=== PATIENT | male | born 1950 | race Caucasian/White ===

== ENCOUNTER 2016-07-05 07:37 | Emergency (ER) | payer OTHER, MEDICARE ==
[~2016-07-05 07:37] MED LIST: AMOX875T2 PO; ATEN50TA2 PO; DOXA1TAB71 PO; FLUT11IN INH; HYDR12CA PO; INSUDET SC; INSUHUMDS SC; LISI-538 PO; LISI-542 PO; LISI40TAB PO
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
== END 2016-07-05 08:31 | disposition home or self-care (01) ==
LOC: M ED 07:37
DX: S80.01XA Contusion of right knee, initial encounter (principal); S00.01XA Abrasion of scalp, initial encounter; V03.10XA Pedestrian on foot injured in collision with car, pick-up truck or van in traffic accident, initial encounter; Y92.410 Unspecified street and highway as the place of occurrence of the external cause; I10 Essential (primary) hypertension; E11.9 Type 2 diabetes mellitus without complications; Z79.899 Other long term (current) drug therapy; Z79.4 Long term (current) use of insulin

== ENCOUNTER 2016-07-05 13:14 | Emergency (ER) | payer MEDICARE ==
[2016-07-05 14:53] LABS: BASO % 0.1 % (0.0-1.0); EOS % 0.2 % (0.0-3.0); LARGE UNSTAINED CELL # 0.1 K/mm3 (0.0-0.4); LARGE UNSTAINED CELL % 0.5 % (0.0-4.0); LYMPH # 0.4 K/mm3 (1.5-4.5); LYMPH % 3.3 % (24.0-44.0); MEAN CORPUSCULAR HEMOGLOBIN 27.8 pg (27.0-33.0); MEAN CORPUSCULAR HGB CONC 34.6 g/dl (32.0-36.5); MEAN CORPUSCULAR VOLUME 80.4 fl (80.0-96.0); MONO # 0.5 K/mm3 (0.0-0.8); MONO % 4.3 % (0.0-5.0); NEUTROPHILS % 91.7 % (36.0-66.0); PLATELET COUNT, AUTOMATED 204 k/mm3 (150-450); RED CELL DISTRIBUTION WIDTH 13.3 % (11.5-14.5); WHITE BLOOD COUNT 10.9 K/mm3 (4.0-10.0)
[2016-07-05] MEDS ORDERED: ONDANSETRON 4MG/2ML VIAL (J2405) As Ordered ONE (15:07)
[2016-07-05] MEDS ORDERED: MORPHINE 4 MG/ML 1ML SYRINGE As Ordered ONE (15:08)
[2016-07-05] MEDS ORDERED: LABETALOL HCL 100 MG/20 ML VIAL As Ordered ONE ×2 (15:09→15:48)
--- NOTE | 2016-07-05 15:15 | REP ---
TWO-VIEW RIGHT KNEE SERIES: 07/05/2016 INDICATION: Deformity and swelling. FINDINGS: There is fracture dislocation of the right knee with lateral displacement and rotational deformity of the tibia and fibula in relation to the distal femur. There is a small avulsion fracture fragment in the region of the tibial spine, yet the donor site is not definitely seen. Alternatively, this could be a small distal dystrophic calcification. The patella is also dislocated laterally in relation to the femoral condyles. There is a moderate suprapatellar effusion. IMPRESSION: Significant dislocation of the right knee with lateral displacement and rotation of tibia in relation to the distal femur. There is also significant lateral displacement of the patella in relation to the distal femur. Small avulsion fracture and/or dystrophic calcification lies in the region of the lateral tibial spine. MTDD
--- NOTE | 2016-07-05 15:15 | REP ---
Portable chest x-ray: Single view. History: COPD. Comparison chest x-ray January 22, 2016. Findings: The lungs are symmetrically aerated and clear. Heart size is mildly prominent. Aorta is somewhat tortuous. No significant bony abnormality. Impression: Borderline heart size, otherwise no acute disease. Signed by Vincenzo Kenney MD 07/05/2016 08:14 P
[2016-07-05] MEDS ORDERED: LABETALOL 100 MG TAB As Ordered ONE (15:47)
[2016-07-05 15:49] LABS: ANION GAP 13 MEQ/L (8-16); BLOOD UREA NITROGEN 26 MG/DL (7-18); CALCIUM LEVEL 9.1 MG/DL (8.8-10.2); CARBON DIOXIDE LEVEL 23 MEQ/L (21-32); CHLORIDE LEVEL 105 MEQ/L (98-107); CREATININE FOR GFR 1.26 MG/DL (0.70-1.30); GLOMERULAR FILTRATION RATE > 60.0 (>49); GLUCOSE, FASTING 232 MG/DL (80-110); POTASSIUM SERUM 4.2 MEQ/L (3.5-5.1); SODIUM LEVEL 141 MEQ/L (136-145)
[2016-07-05] MEDS ORDERED: PROPOFOL 200 MG/20 ML VIAL As Ordered ONE (15:57)
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
--- NOTE | 2016-07-05 17:01 | REP ---
AP AND LATERAL VIEWS OF THE RIGHT KNEE PERFORMED PORTABLY: INDICATIONS: Status-post external reduction. Previous dislocation of the knee joint at the femoral tibial articulation with rotational deformity of the tibia in relation to distal femur ,and laterally dislocated patella, have now been repositioned and are in anatomic alignment. There is no acute fracture. Soft-tissue swelling within the medial and anterior aspect of the right knee as well as suprapatellar fusion. IMPRESSION: Status-post external reduction of the right knee for extensive dislocation. The alignment is now anatomic in these submitted views. There is no acute fracture. , MTDD
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
== END 2016-07-05 17:46 | disposition short-term general hospital (02) ==
LOC: M ED 13:14
DX: S83.144A Lateral dislocation of proximal end of tibia, right knee, initial encounter (principal); S83.014A Lateral dislocation of right patella, initial encounter; I16.0 Hypertensive urgency; V03.10XD Pedestrian on foot injured in collision with car, pick-up truck or van in traffic accident, subsequent encounter; Y92.410 Unspecified street and highway as the place of occurrence of the external cause; E11.9 Type 2 diabetes mellitus without complications; Z79.899 Other long term (current) drug therapy; Z79.4 Long term (current) use of insulin
CPT/HCPCS: 27550; 36415; 71010; 73560; 73564; 80048; 85025; 93041; 96361; 96374; 96375; 96376; 99285; J2405

== ENCOUNTER → 2017-08-01 | Outpatient (REF) | payer MEDICARE ==
[2017-08-01 16:32] LABS: CREATININE, URINE 59.2 MG/DL; MALB URINE SIEMENS < 5.0 MG/L; MAU/CREAT RATIO 8.4 MCG/MG (0.0-30.0)
== END ==
LOC: M SFHCPLAZ 14:33
DX: E78.5 Hyperlipidemia, unspecified (principal); I10 Essential (primary) hypertension; E11.8 Type 2 diabetes mellitus with unspecified complications
CPT/HCPCS: 82043

== ENCOUNTER → 2017-08-09 | Outpatient (CLI) | payer MEDICARE | LOC: M SMT 10:41 | DX: M17.31 Unilateral post-traumatic osteoarthritis, right knee (principal) | CPT/HCPCS: 73564; G0463 ==

== ENCOUNTER → 2017-08-10 | Outpatient (REF) | payer MEDICARE ==
[2017-08-10 14:19] LABS: BASO % 0.4 % (0.0-1.0); EOS # 0.1 10^3/uL (0.0-0.50); EOS % 1.6 % (0.0-3.0); HEMATOCRIT 45.1 % (42.0-52.0); IMMATURE GRANULOCYTE % 0.3 % (0-3.0); LYMPH # 1.7 10^3/uL (1.5-4.5); LYMPH % 25.4 % (24.0-44.0); MEAN CORPUSCULAR HEMOGLOBIN 26.8 pg (27.0-33.0); MEAN CORPUSCULAR HGB CONC 33.3 g/dl (32.0-36.5); MEAN CORPUSCULAR VOLUME 80.7 fl (80.0-96.0); MONO # 0.5 10^3/uL (0.0-0.8); MONO % 7.3 % (0.0-5.0); NEUTROPHILS # 4.4 10^3/uL (1.8-7.7); PLATELET COUNT, AUTOMATED 236 10^3/uL (150-450); RED BLOOD COUNT 5.59 10^6/uL (4.30-6.10); RED CELL DISTRIBUTION WIDTH 12.4 % (11.5-14.5); WHITE BLOOD COUNT 6.7 10^3/uL (4.0-10.0)
[2017-08-10 14:41] LABS: ESTIMATED AVERAGE GLUCOSE 306 MG/DL (60-110); HEMOGLOBIN A1c 12.3 %
[2017-08-10 14:46] LABS: ALBUMIN 3.9 GM/DL (3.2-5.2); ALBUMIN/GLOBULIN RATIO 1.22 (1.00-1.93); ALKALINE PHOSPHATASE 130 U/L (45-117); ALT/SGPT 32 U/L (12-78); ANION GAP 11 MEQ/L (8-16); AST/SGOT 19 U/L (7-37); BILIRUBIN,TOTAL 0.5 MG/DL (0.2-1.0); BLOOD UREA NITROGEN 27 MG/DL (7-18); CARBON DIOXIDE LEVEL 27 MEQ/L (21-32); CHLORIDE LEVEL 97 MEQ/L (98-107); CHOLESTEROL LEVEL 189 MG/DL (<200); CPK CREATINE PHOSPHOKINASE 162 U/L (39-308); CREATININE FOR GFR 1.28 MG/DL (0.70-1.30); GLOMERULAR FILTRATION RATE 59.7 (>49); HDL CHOLESTEROL 30 MG/DL (>40); NON-HDL-C 159 MG/DL; POTASSIUM SERUM 4.4 MEQ/L (3.5-5.1); SODIUM LEVEL 135 MEQ/L (136-145); TOTAL PROTEIN 7.1 GM/DL (6.4-8.2); TRIGLYCERIDES LEVEL 636 MG/DL (<150)
[2017-08-10 14:50] LABS: GLUCOSE, FASTING 447 MG/DL (70-100)
== END ==
LOC: M SFHCPLAZ 10:54
DX: E78.5 Hyperlipidemia, unspecified (principal); I10 Essential (primary) hypertension; E11.8 Type 2 diabetes mellitus with unspecified complications
CPT/HCPCS: 82550

== ENCOUNTER 2017-08-28 16:32 | Observation (INO) | payer MEDICARE ==
[2017-08-28 18:26] LABS: BASO % 0.3 % (0.0-1.0); EOS # 0.2 10^3/uL (0.0-0.50); EOS % 2.1 % (0.0-3.0); HEMATOCRIT 38.4 % (42.0-52.0); HEMOGLOBIN 13.4 g/dl (14.0-18.0); IMMATURE GRANULOCYTE % 0.3 % (0-3.0); LYMPH # 2.4 10^3/uL (1.5-4.5); LYMPH % 27.2 % (24.0-44.0); MEAN CORPUSCULAR HEMOGLOBIN 27.6 pg (27.0-33.0); MEAN CORPUSCULAR HGB CONC 34.9 g/dl (32.0-36.5); MONO # 0.5 10^3/uL (0.0-0.8); MONO % 5.2 % (0.0-5.0); NEUTROPHILS # 5.7 10^3/uL (1.8-7.7); NEUTROPHILS % 64.9 % (36.0-66.0); PLATELET COUNT, AUTOMATED 194 10^3/uL (150-450); RED BLOOD COUNT 4.86 10^6/uL (4.30-6.10); RED CELL DISTRIBUTION WIDTH 11.9 % (11.5-14.5); WHITE BLOOD COUNT 8.9 10^3/uL (4.0-10.0)
[2017-08-28 18:39] LABS: ALBUMIN 3.2 GM/DL (3.2-5.2); ALBUMIN/GLOBULIN RATIO 0.91 (1.00-1.93); ALKALINE PHOSPHATASE 112 U/L (45-117); ALT/SGPT 23 U/L (12-78); ANION GAP 8 MEQ/L (8-16); AST/SGOT 13 U/L (7-37); BILIRUBIN,DIRECT 0.1 MG/DL (0.0-0.2); BILIRUBIN,TOTAL 0.8 MG/DL (0.2-1.0); BLOOD UREA NITROGEN 57 MG/DL (7-18); CALCIUM LEVEL 9.3 MG/DL (8.8-10.2); CARBON DIOXIDE LEVEL 30 MEQ/L (21-32); CHLORIDE LEVEL 87 MEQ/L (98-107); CREATININE FOR GFR 1.82 MG/DL (0.70-1.30); GLOMERULAR FILTRATION RATE 39.8 (>49); POTASSIUM SERUM 3.9 MEQ/L (3.5-5.1); SODIUM LEVEL 125 MEQ/L (136-145); TOTAL PROTEIN 6.7 GM/DL (6.4-8.2)
[2017-08-28 18:42] LABS: GLUCOSE, FASTING 604 MG/DL (70-100)
[2017-08-28] MEDS ORDERED: HumuLIN R (REGULAR) INSULIN (NovoLIN R) **100U/ML** PER UNIT As Ordered ×3 (19:32)
[2017-08-28] MEDS: HumuLIN R (REGULAR) INSULIN (NovoLIN R) **100U/ML** PER UNIT IV ×3 (19:40)
[2017-08-28] MEDS: NS 1,000 ML IV ×6 (19:45→23:37)
[2017-08-28] MEDS ORDERED: ONDANSETRON 4MG/2ML VIAL (J2405) IV ×3 (20:15)
[2017-08-28] MEDS ORDERED: BENZONATATE 100 MG CAP PO ×3 (20:30)
[2017-08-28] MEDS ORDERED: DEXTROSE 50% 50 ML SYRINGE IV ×3 (20:30)
[2017-08-28] MEDS ORDERED: GLUCAGON FOR INJ 1 MG VIAL (J1610) SC ×3 (20:30)
[2017-08-28] MEDS ORDERED: GLUCOSE 4 GM CHEW TABLET PO ×3 (20:30)
[2017-08-28 21:24] LABS: BEDSIDE GLUCOSE 454 MG/DL (80-115)
[2017-08-28] MEDS: ATORVASTATIN 20 MG TAB PO ×3 (23:36)
[2017-08-28] MEDS: HumaLOG INSULIN (NovoLOG) PER UNIT SC ×3 (23:37)
[2017-08-28] MEDS: LEVEMIR (INSULIN DETEMIR) 1 UNITS/0.01ML SC ×3 (23:37)
[2017-08-29] MEDS: HEPARIN SOD (PORCINE) 5000 UNITS/ML VIAL SC ×9 (05:29→21:49)
[2017-08-29 05:50] LABS: APPEARANCE, URINE CLEAR (CLEAR); BACTERIA, URINE AUTO NEGATIVE (NEGATIVE); BILIRUBIN, URINE AUTO NEGATIVE (NEGATIVE); BLOOD, URINE BLOOD NEGATIVE (NEGATIVE); COLOR, URINE YELLOW (YELLOW); GLUCOSE, URINE (UA) AUTO 3+ mg/dL (NEGATIVE); KETONE, URINE AUTO NEGATIVE (NEGATIVE); LEUKOCYTE ESTERASE, URINE AUTO NEGATIVE (NEGATIVE); NITRITE, URINE AUTO NEGATIVE (NEGATIVE); PROTEIN, URINE AUTO NEGATIVE (NEGATIVE); RBC, URINE AUTO 2 /HPF (0-3); SQUAMOUS EPITHELIAL CELL UR AU 0 /HPF (0-6); UROBILINOGEN, URINE AUTO 0.2 mg/dL (0.0-2.0); WBC, URINE AUTO 0 /HPF (0-3)
[2017-08-29 07:00] LABS: BASO % 0.2 % (0.0-1.0); EOS # 0.2 10^3/uL (0.0-0.50); EOS % 2.4 % (0.0-3.0); HEMATOCRIT 37.3 % (42.0-52.0); HEMOGLOBIN 12.7 g/dl (14.0-18.0); IMMATURE GRANULOCYTE % 0.4 % (0-3.0); LYMPH # 2.4 10^3/uL (1.5-4.5); LYMPH % 24.8 % (24.0-44.0); MEAN CORPUSCULAR HEMOGLOBIN 27.1 pg (27.0-33.0); MEAN CORPUSCULAR VOLUME 79.7 fl (80.0-96.0); MONO # 0.5 10^3/uL (0.0-0.8); MONO % 5.1 % (0.0-5.0); NEUTROPHILS # 6.5 10^3/uL (1.8-7.7); NEUTROPHILS % 67.1 % (36.0-66.0); PLATELET COUNT, AUTOMATED 174 10^3/uL (150-450); RED BLOOD COUNT 4.68 10^6/uL (4.30-6.10); WHITE BLOOD COUNT 9.6 10^3/uL (4.0-10.0)
[2017-08-29 07:26] LABS: ANION GAP 8 MEQ/L (8-16); BLOOD UREA NITROGEN 52 MG/DL (7-18); CALCIUM LEVEL 8.7 MG/DL (8.8-10.2); CARBON DIOXIDE LEVEL 30 MEQ/L (21-32); CHLORIDE LEVEL 95 MEQ/L (98-107); CREATININE FOR GFR 1.41 MG/DL (0.70-1.30); GLOMERULAR FILTRATION RATE 53.4 (>49); GLUCOSE, FASTING 357 MG/DL (70-100); MAGNESIUM LEVEL 2.3 MG/DL (1.8-2.4); SODIUM LEVEL 133 MEQ/L (136-145)
[2017-08-29] MEDS: FLUoxetine 20 MG CAP PO ×3 (08:17)
[2017-08-29] MEDS: amLODIPine 5 MG TAB PO ×3 (08:17)
[2017-08-29] MEDS: ATENOLOL 50 MG TAB PO ×3 (08:18)
[2017-08-29] MEDS: HumaLOG INSULIN (NovoLOG) PER UNIT SC ×12 (08:18→21:50)
[2017-08-29] MEDS: LEVEMIR (INSULIN DETEMIR) 1 UNITS/0.01ML SC ×6 (08:19→21:50)
[2017-08-29 12:27] LABS: BEDSIDE GLUCOSE 503 MG/DL (80-115)
[2017-08-29 12:27] LABS: BEDSIDE GLUCOSE 503 MG/DL (80-115)
[2017-08-29] MEDS: NS 1,000 ML IV ×9 (12:27→21:51)
[2017-08-29 13:01] LABS: BEDSIDE GLUCOSE 347 MG/DL (80-115)
[2017-08-29 13:02] LABS: BEDSIDE GLUCOSE 462 MG/DL (80-115)
[2017-08-29 14:20] LABS: OSMOLALITY URINE 729 MOSM/KG (500-800)
[2017-08-29 14:36] LABS: CHLORIDE,RANDOM URINE 38 MEQ/L; CREATININE,RANDOM URINE 78.9 MG/DL; POTASSIUM RANDOM URINE 34.4 MEQ/L; SODIUM,RANDOM URINE 50 MEQ/L; TOTAL PROTEIN,RANDOM URINE 13.4 MG/DL (0.0-12.0)
[2017-08-29] MEDS: ATORVASTATIN 20 MG TAB PO ×3 (21:51)
[2017-08-29] MEDS: ACETAMINOPHEN TAB 650MG DOSE (2X325MG) PO ×3 (21:51)
[2017-08-30] MEDS: NS 1,000 ML IV ×6 (03:30→08:26)
[2017-08-30] MEDS: HEPARIN SOD (PORCINE) 5000 UNITS/ML VIAL SC ×3 (06:24)
[2017-08-30 07:51] LABS: HEMATOCRIT 36.4 % (42.0-52.0); HEMOGLOBIN 12.5 g/dl (14.0-18.0); MEAN CORPUSCULAR HEMOGLOBIN 27.7 pg (27.0-33.0); MEAN CORPUSCULAR HGB CONC 34.3 g/dl (32.0-36.5); MEAN CORPUSCULAR VOLUME 80.5 fl (80.0-96.0); PLATELET COUNT, AUTOMATED 161 10^3/uL (150-450); RED BLOOD COUNT 4.52 10^6/uL (4.30-6.10); RED CELL DISTRIBUTION WIDTH 11.9 % (11.5-14.5); WHITE BLOOD COUNT 4.8 10^3/uL (4.0-10.0)
[2017-08-30 08:10] LABS: MAGNESIUM LEVEL 1.9 MG/DL (1.8-2.4)
[2017-08-30 08:13] LABS: ANION GAP 4 MEQ/L (8-16); BLOOD UREA NITROGEN 29 MG/DL (7-18); CALCIUM LEVEL 7.7 MG/DL (8.8-10.2); CARBON DIOXIDE LEVEL 28 MEQ/L (21-32); CHLORIDE LEVEL 106 MEQ/L (98-107); CREATININE FOR GFR 1.07 MG/DL (0.70-1.30); GLOMERULAR FILTRATION RATE > 60.0 (>49); GLUCOSE, FASTING 296 MG/DL (70-100); POTASSIUM SERUM 4.3 MEQ/L (3.5-5.1); SODIUM LEVEL 138 MEQ/L (136-145)
[2017-08-30] MEDS: HumaLOG INSULIN (NovoLOG) PER UNIT SC ×6 (08:45→12:29)
[2017-08-30] MEDS: ATENOLOL 50 MG TAB PO ×3 (08:46)
[2017-08-30] MEDS: FLUoxetine 20 MG CAP PO ×3 (08:46)
[2017-08-30] MEDS: amLODIPine 5 MG TAB PO ×3 (08:46)
[2017-08-30] MEDS: LEVEMIR (INSULIN DETEMIR) 1 UNITS/0.01ML SC ×3 (10:30)
[2017-08-30 11:57] LABS: BEDSIDE GLUCOSE 592 MG/DL (80-115)
[2017-09-03 12:04] LABS: BEDSIDE GLUCOSE 282 MG/DL (80-115)
[2017-09-03 12:04] LABS: BEDSIDE GLUCOSE 404 MG/DL (80-115)
[2017-09-03 12:05] LABS: BEDSIDE GLUCOSE 331 MG/DL (80-115)
== END 2017-08-30 13:37 | disposition home or self-care (01) ==
LOC: M ED 16:32 → M ED INP 20:05 → M MS5PR 22:47
PROVIDERS: Internal Medicine
DX: N17.9 Acute kidney failure, unspecified (principal); E11.65 Type 2 diabetes mellitus with hyperglycemia; E87.1 Hypo-osmolality and hyponatremia; I10 Essential (primary) hypertension; R05 Cough; E78.9 Disorder of lipoprotein metabolism, unspecified; F32.9 Major depressive disorder, single episode, unspecified; N40.0 Benign prostatic hyperplasia without lower urinary tract symptoms; Z79.899 Other long term (current) drug therapy; Z79.4 Long term (current) use of insulin
CPT/HCPCS: 71046

== ENCOUNTER → 2017-09-07 | Outpatient (REF) | payer MEDICARE ==
[2017-09-07 16:04] LABS: BASO % 0.2 % (0.0-1.0); EOS # 0.1 10^3/uL (0.0-0.50); EOS % 1.6 % (0.0-3.0); HEMOGLOBIN 12.5 g/dl (14.0-18.0); IMMATURE GRANULOCYTE % 0.4 % (0-3.0); LYMPH # 1.9 10^3/uL (1.5-4.5); LYMPH % 32.7 % (24.0-44.0); MEAN CORPUSCULAR HEMOGLOBIN 27.6 pg (27.0-33.0); MEAN CORPUSCULAR HGB CONC 32.9 g/dl (32.0-36.5); MEAN CORPUSCULAR VOLUME 83.9 fl (80.0-96.0); MONO # 0.5 10^3/uL (0.0-0.8); MONO % 9.5 % (0.0-5.0); NEUTROPHILS # 3.2 10^3/uL (1.8-7.7); NEUTROPHILS % 55.6 % (36.0-66.0); PLATELET COUNT, AUTOMATED 249 10^3/uL (150-450); RED BLOOD COUNT 4.53 10^6/uL (4.30-6.10); RED CELL DISTRIBUTION WIDTH 12.8 % (11.5-14.5); WHITE BLOOD COUNT 5.7 10^3/uL (4.0-10.0)
[2017-09-07 16:25] LABS: ESTIMATED AVERAGE GLUCOSE 369 MG/DL (60-110); HEMOGLOBIN A1c 14.5 %
[2017-09-07 16:36] LABS: ALBUMIN 3.3 GM/DL (3.2-5.2); ALKALINE PHOSPHATASE 86 U/L (45-117); ALT/SGPT 34 U/L (12-78); ANION GAP 4 MEQ/L (8-16); AST/SGOT 16 U/L (7-37); BILIRUBIN,TOTAL 0.4 MG/DL (0.2-1.0); BLOOD UREA NITROGEN 15 MG/DL (7-18); CALCIUM LEVEL 8.8 MG/DL (8.8-10.2); CARBON DIOXIDE LEVEL 31 MEQ/L (21-32); CHLORIDE LEVEL 106 MEQ/L (98-107); CREATININE FOR GFR 1.01 MG/DL (0.70-1.30); GLOMERULAR FILTRATION RATE > 60.0 (>49); GLUCOSE, FASTING 112 MG/DL (70-100); POTASSIUM SERUM 4.6 MEQ/L (3.5-5.1); SODIUM LEVEL 141 MEQ/L (136-145); TOTAL PROTEIN 6.3 GM/DL (6.4-8.2)
== END ==
LOC: M SFHCPLAZ 13:51
DX: I10 Essential (primary) hypertension (principal); E11.8 Type 2 diabetes mellitus with unspecified complications
CPT/HCPCS: 80053

== ENCOUNTER → 2017-09-17 | Outpatient (REF) | payer MEDICARE ==
[2017-09-17 17:12] LABS: BASO % 0.4 % (0.0-1.0); EOS # 0.2 10^3/uL (0.0-0.50); EOS % 2.7 % (0.0-3.0); HEMATOCRIT 39.7 % (42.0-52.0); IMMATURE GRANULOCYTE % 0.4 % (0-3.0); LYMPH # 1.9 10^3/uL (1.5-4.5); LYMPH % 33.7 % (24.0-44.0); MEAN CORPUSCULAR HEMOGLOBIN 27.6 pg (27.0-33.0); MEAN CORPUSCULAR HGB CONC 32.7 g/dl (32.0-36.5); MEAN CORPUSCULAR VOLUME 84.3 fl (80.0-96.0); MONO # 0.4 10^3/uL (0.0-0.8); MONO % 7.8 % (0.0-5.0); NEUTROPHILS # 3.1 10^3/uL (1.8-7.7); PLATELET COUNT, AUTOMATED 181 10^3/uL (150-450); RED BLOOD COUNT 4.71 10^6/uL (4.30-6.10); RED CELL DISTRIBUTION WIDTH 13.2 % (11.5-14.5); WHITE BLOOD COUNT 5.6 10^3/uL (4.0-10.0)
[2017-09-17 17:29] LABS: FOLATE 19.1 NG/ML (>5.4); VITAMIN B12 LEVEL 594 PG/ML (247-911)
[2017-09-17 17:31] LABS: POS COUNT POS FLAG
[2017-09-17 19:15] LABS: FERRITIN 352 NG/ML (26-388); IRON (FE) 62 UG/DL (65-175); PERCENT SATURATION 22.2 % (19.7-50.0); TOTAL IRON BINDING CAPACITY 279 UG/DL (250-450)
== END ==
LOC: M SFHCPLAZ 14:13
DX: D64.9 Anemia, unspecified (principal)
CPT/HCPCS: 82746

== ENCOUNTER 2018-01-13 20:03 | Inpatient (IN) | payer MEDICARE ==
[2018-01-13] MEDS: AMPICILLIN SOD/SULBACTAM SOD 1.5 GM in D5W MINI-BAG PLUS 50 ML IV (00:10)
[2018-01-13] MEDS: METOCLOPRAMIDE INJ 10MG/2ML VIAL (J2765) IV (20:30)
[2018-01-13] MEDS: NS 500 ML IV ×2 (20:30→21:45)
[2018-01-13 20:41] LABS: BASO % 0.1 % (0.0-1.0); HEMATOCRIT 44.6 % (42.0-52.0); IMMATURE GRANULOCYTE % 0.3 % (0-3.0); LYMPH # 1.1 10^3/uL (1.5-4.5); LYMPH % 7.8 % (24.0-44.0); MEAN CORPUSCULAR HEMOGLOBIN 27.2 pg (27.0-33.0); MEAN CORPUSCULAR HGB CONC 33.6 g/dl (32.0-36.5); MEAN CORPUSCULAR VOLUME 80.8 fl (80.0-96.0); MONO # 0.6 10^3/uL (0.0-0.8); NEUTROPHILS # 12.9 10^3/uL (1.8-7.7); NEUTROPHILS % 87.8 % (36.0-66.0); PLATELET COUNT, AUTOMATED 303 10^3/uL (150-450); RED BLOOD COUNT 5.52 10^6/uL (4.30-6.10); RED CELL DISTRIBUTION WIDTH 12.3 % (11.5-14.5); WHITE BLOOD COUNT 14.7 10^3/uL (4.0-10.0)
[2018-01-13 21:02] LABS: ALBUMIN 3.5 GM/DL (3.2-5.2); ALBUMIN/GLOBULIN RATIO 1.03 (1.00-1.93); ALKALINE PHOSPHATASE 112 U/L (45-117); ALT/SGPT 28 U/L (12-78); ANION GAP 16 MEQ/L (8-16); AST/SGOT 14 U/L (7-37); BILIRUBIN,DIRECT 0.2 MG/DL (0.0-0.2); BILIRUBIN,TOTAL 0.9 MG/DL (0.2-1.0); BLOOD UREA NITROGEN 35 MG/DL (7-18); CALCIUM LEVEL 9.2 MG/DL (8.8-10.2); CARBON DIOXIDE LEVEL 24 MEQ/L (21-32); CHLORIDE LEVEL 96 MEQ/L (98-107); CK-MB VALUE MASS 1.7 NG/ML (<3.6); CPK CREATINE PHOSPHOKINASE 184 U/L (39-308); CREATININE FOR GFR 2.89 MG/DL (0.70-1.30); GLOMERULAR FILTRATION RATE 23.2 (>49); LIPASE 107 U/L (73-393); MB/CK RELATIVE INDEX 0.92 (< OR =4); POTASSIUM SERUM 4.3 MEQ/L (3.5-5.1); SODIUM LEVEL 136 MEQ/L (136-145); TOTAL PROTEIN 6.9 GM/DL (6.4-8.2); TROPONIN I 0.03 NG/ML (< 0.10)
[2018-01-13 21:10] LABS: LACTIC ACID SEPSIS PROTOCOL 8.7 MMOL/L (0.4-2.0)
[2018-01-13] MEDS: GASTROGRAFIN SOLUTION 30ML PO ×2 (21:10→21:40)
[2018-01-13 21:11] LABS: GLUCOSE, FASTING 465 MG/DL (70-100)
[2018-01-13] MEDS: HumuLIN R (REGULAR) INSULIN (NovoLIN R) **100U/ML** PER UNIT IV (21:45)
[2018-01-13] MEDS ORDERED: ISOVUE-370 76% 100ML VIAL (Q9967) As Ordered (22:23)
[2018-01-13 22:30] LABS: BEDSIDE GLUCOSE 506 MG/DL (80-115)
[2018-01-14] MEDS: NS 1,000 ML IV ×5 (00:10→18:20)
[2018-01-14] MEDS ORDERED: ONDANSETRON 4MG/2ML VIAL (J2405) IV ×2 (00:45→05:00)
[2018-01-14] MEDS: PIPERACILLIN/TAZOBACTAM SOD 3.375 GM in D5W MINI-BAG PLUS 50 ML IV ×4 (01:30→20:48)
[2018-01-14 02:42] LABS: iSTAT CA++ 4.7 MG/DL (4.5-5.3)
[2018-01-14] MEDS ORDERED: PROPOFOL 200 MG/20 ML VIAL As Ordered (03:25)
[2018-01-14] MEDS ORDERED: MIDAZOLAM INJ 2 MG/2 ML VIAL (J2250) As Ordered ×3 (03:25→05:43)
[2018-01-14] MEDS ORDERED: HYDROmorphone HCL 2 MG/ML 1ML VIAL (J1170) As Ordered (03:25)
[2018-01-14] MEDS ORDERED: LIDOCAINE 2% INJ 100 MG/5 ML SDV (FOR ANES.) As Ordered (03:25)
[2018-01-14] MEDS ORDERED: ONDANSETRON 4MG/2ML VIAL (J2405) As Ordered (03:25)
[2018-01-14] MEDS ORDERED: fentaNYL 250 MCG/5 ML INJECTION (J3010) As Ordered (03:25)
[2018-01-14] MEDS ORDERED: ROCURONIUM BROMIDE 50 MG/5 ML VIAL As Ordered ×2 (03:25→03:48)
[2018-01-14] MEDS ORDERED: SUCCINYLCHOLINE 100 MG/5 ML SYRINGE (J0330) As Ordered (03:26)
[2018-01-14] MEDS ORDERED: PHENYLEPHRINE INJ 10MG/ML VIAL (J2370) As Ordered (03:26)
[2018-01-14] MEDS ORDERED: NEOSTIGMINE 10 MG/10 ML VIAL (J2710) As Ordered (03:46)
[2018-01-14] MEDS ORDERED: GLYCOPYRROLATE INJ 0.2 MG/ML 2 ML VIAL As Ordered ×2 (03:46)
[2018-01-14] MEDS: LR 1,000 ML IV (04:29)
[2018-01-14] MEDS ORDERED: MORPHINE 4 MG/ML 1ML VIAL/SYRINGE (J2270) IV (04:45)
[2018-01-14] MEDS ORDERED: GLUCAGON FOR INJ 1 MG VIAL (J1610) SC (04:45)
[2018-01-14] MEDS ORDERED: DEXTROSE 50% 50 ML SYRINGE IV (04:45)
[2018-01-14] MEDS ORDERED: GLUCOSE 4 GM CHEW TABLET PO (04:45)
[2018-01-14 04:46] LABS: BEDSIDE GLUCOSE 351 MG/DL (80-115)
[2018-01-14] MEDS ORDERED: HumaLOG INSULIN (NovoLOG) PER UNIT As Ordered (04:47)
[2018-01-14] MEDS ORDERED: fentaNYL 100 MCG/2 ML INJECTION (J3010) As Ordered (04:48)
[2018-01-14] MEDS: fentaNYL 100 MCG/2 ML INJECTION (J3010) IV ×4 (04:48→05:35)
[2018-01-14] MEDS: MIDAZOLAM INJ 2 MG/2 ML VIAL (J2250) IV ×10 (04:48→13:20)
[2018-01-14] MEDS: HumaLOG INSULIN (NovoLOG) PER UNIT SC ×5 (05:00→23:28)
[2018-01-14 05:16] LABS: ABG BASE EXCESS -6.1 (-2.0-2.0); ABG HCO3 19.7 MEQ/L (22.0-26.0); ABG O2 SATURATION 99.4 % (95.0-99.0); ABG PARTIAL PRESSURE CO2 40.3 mmHg (35.0-45.0); ABG STANDARD HCO3 19.6 MEQ/L (22.0-26.0); ABG pH (ARTERIAL) 7.308 UNITS (7.350-7.450)
[2018-01-14 05:20] LABS: HEMATOCRIT 39.5 % (42.0-52.0); HEMOGLOBIN 13.4 g/dl (13.5-17.5); MEAN CORPUSCULAR HGB CONC 33.9 g/dl (32.0-36.5); MEAN CORPUSCULAR VOLUME 79.6 fl (80.0-96.0); PLATELET COUNT, AUTOMATED 218 10^3/uL (150-450); RED BLOOD COUNT 4.96 10^6/uL (4.30-6.10); RED CELL DISTRIBUTION WIDTH 12.6 % (11.5-14.5); WHITE BLOOD COUNT 2.7 10^3/uL (4.0-10.0)
[2018-01-14 05:35] LABS: ANION GAP 12 MEQ/L (8-16); BLOOD UREA NITROGEN 32 MG/DL (7-18); CARBON DIOXIDE LEVEL 21 MEQ/L (21-32); CHLORIDE LEVEL 108 MEQ/L (98-107); CREATININE FOR GFR 1.98 MG/DL (0.70-1.30); GLUCOSE, FASTING 378 MG/DL (70-100); SODIUM LEVEL 141 MEQ/L (136-145)
[2018-01-14 05:37] LABS: POTASSIUM SERUM 5.2 MEQ/L (3.5-5.1)
[2018-01-14] MEDS ORDERED: LIDOCAINE 1% MDV 20ML VIAL As Ordered (06:28)
[2018-01-14] MEDS: LACTATED RINGER'S 1000 ML IV (06:35)
[2018-01-14] MEDS: NS 500 ML IV ×3 (07:00→10:15)
[2018-01-14 07:01] LABS: BEDSIDE GLUCOSE 311 MG/DL (80-115)
[2018-01-14] MEDS: IPRATROPIUM 0.5MG/ALBUTEROL 2.5MG INH SOL UD 3ML (DUONEB)(J7620) NEB ×4 (08:00→20:03)
[2018-01-14 09:45] LABS: ABG BASE EXCESS -3.8 (-2.0-2.0); ABG HCO3 20.5 MEQ/L (22.0-26.0); ABG O2 SATURATION 98.6 % (95.0-99.0); ABG PARTIAL PRESSURE CO2 35.2 mmHg (35.0-45.0); ABG PARTIAL PRESSURE O2 123.2 mmHg (75.0-100.0); ABG STANDARD HCO3 21.4 MEQ/L (22.0-26.0); ABG TOTAL CO2 21.6 MEQ/L (23.0-31.0); ABG pH (ARTERIAL) 7.384 UNITS (7.350-7.450)
[2018-01-14] MEDS: PANTOPRAZOLE 40MG INJ (PROTONIX) (C9113) IV (10:10)
[2018-01-14] MEDS: CHLORHEXIDINE ORAL RINSE 0.12%/15ML 120ML BOTTLE MT (10:10)
[2018-01-14] MEDS: MORPHINE 4 MG/ML 1ML VIAL/SYRINGE (J2270) IV ×3 (10:30→17:13)
[2018-01-14 11:48] LABS: SODIUM,RANDOM URINE 14 MEQ/L
[2018-01-14 12:39] LABS: BEDSIDE GLUCOSE 287 MG/DL (80-115)
[2018-01-14] MEDS ORDERED: SODIUM CHLORIDE 0.9% INJ 10 ML SYR IV (16:30)
[2018-01-14 18:00] LABS: BEDSIDE GLUCOSE 250 MG/DL (80-115)
[2018-01-14] MEDS: SODIUM CHLORIDE 0.9% INJ 10 ML SYR IV (22:08)
[2018-01-14 23:26] LABS: BEDSIDE GLUCOSE 252 MG/DL (80-115)
[2018-01-15] MEDS: NS 1,000 ML IV ×2 (00:45→08:31)
[2018-01-15] MEDS: PIPERACILLIN/TAZOBACTAM SOD 3.375 GM in D5W MINI-BAG PLUS 50 ML IV ×4 (01:40→19:32)
[2018-01-15 04:09] LABS: HEMATOCRIT 35.4 % (42.0-52.0); HEMOGLOBIN 11.9 g/dl (13.5-17.5); MEAN CORPUSCULAR HEMOGLOBIN 27.4 pg (27.0-33.0); MEAN CORPUSCULAR HGB CONC 33.6 g/dl (32.0-36.5); MEAN CORPUSCULAR VOLUME 81.6 fl (80.0-96.0); PLATELET COUNT, AUTOMATED 175 10^3/uL (150-450); RED BLOOD COUNT 4.34 10^6/uL (4.30-6.10); RED CELL DISTRIBUTION WIDTH 12.9 % (11.5-14.5)
[2018-01-15 04:27] LABS: ALBUMIN 1.9 GM/DL (3.2-5.2); ALBUMIN/GLOBULIN RATIO 0.63 (1.00-1.93); ALKALINE PHOSPHATASE 50 U/L (45-117); ALT/SGPT 21 U/L (12-78); ANION GAP 9 MEQ/L (8-16); AST/SGOT 17 U/L (7-37); BILIRUBIN,TOTAL 0.7 MG/DL (0.2-1.0); BLOOD UREA NITROGEN 30 MG/DL (7-18); CALCIUM LEVEL 6.8 MG/DL (8.8-10.2); CARBON DIOXIDE LEVEL 24 MEQ/L (21-32); CHLORIDE LEVEL 112 MEQ/L (98-107); CHOLESTEROL LEVEL 60 MG/DL (< 200); CPK CREATINE PHOSPHOKINASE 337 U/L (39-308); CREATININE FOR GFR 1.95 MG/DL (0.70-1.30); GLOMERULAR FILTRATION RATE 36.6 (>49); GLUCOSE, FASTING 191 MG/DL (70-100); LDH LACTATE DEHYDROGENASE 155 U/L (87-241); POTASSIUM SERUM 4.1 MEQ/L (3.5-5.1); SODIUM LEVEL 145 MEQ/L (136-145); TOTAL PROTEIN 4.9 GM/DL (6.4-8.2); TRIGLYCERIDES LEVEL 207 MG/DL (<150)
[2018-01-15 04:32] LABS: ADD MANUAL DIFFER YES; POSITIVE MORPH POS FLAG
[2018-01-15 04:33] LABS: DIFF SLIDE NUMBER 54
[2018-01-15 04:49] LABS: BANDS 2 % (< 11); LYMPHOCYTES 11 % (16-52); MONOCYTES 3 % (0-8); NEUTROPHILS 84 % (35-75); PLATELET ESTIMATE NORMAL (NORMAL)
[2018-01-15] MEDS: HumaLOG INSULIN (NovoLOG) PER UNIT SC ×4 (05:22→23:08)
[2018-01-15] MEDS: SODIUM CHLORIDE 0.9% INJ 10 ML SYR IV ×3 (05:22→21:14)
[2018-01-15] MEDS: IPRATROPIUM 0.5MG/ALBUTEROL 2.5MG INH SOL UD 3ML (DUONEB)(J7620) NEB ×4 (08:00→20:00)
[2018-01-15] MEDS: PANTOPRAZOLE 40MG INJ (PROTONIX) (C9113) IV (08:32)
[2018-01-15] MEDS: MORPHINE 4 MG/ML 1ML VIAL/SYRINGE (J2270) IV ×3 (08:33→17:45)
[2018-01-15] MEDS: ENOXAPARIN 40 MG/0.4 ML SYRINGE (J1650) SC (08:34)
[2018-01-15 11:44] LABS: BEDSIDE GLUCOSE 170 MG/DL (80-115)
[2018-01-15 17:32] LABS: BEDSIDE GLUCOSE 172 MG/DL (80-115)
[2018-01-15] MEDS: LR 1,000 ML IV (18:37)
[2018-01-15] MEDS: ATENOLOL 50 MG TAB PO (19:32)
[2018-01-15 23:07] LABS: BEDSIDE GLUCOSE 146 MG/DL (80-115)
[2018-01-16] MEDS: PIPERACILLIN/TAZOBACTAM SOD 3.375 GM in D5W MINI-BAG PLUS 50 ML IV ×4 (01:21→20:41)
[2018-01-16 04:07] LABS: BASO % 0.1 % (0.0-1.0); EOS # 0.1 10^3/uL (0.0-0.50); HEMATOCRIT 33.3 % (42.0-52.0); HEMOGLOBIN 11.1 g/dl (13.5-17.5); IMMATURE GRANULOCYTE % 1.1 % (0-3.0); LYMPH # 0.8 10^3/uL (1.5-4.5); LYMPH % 10.9 % (24.0-44.0); MEAN CORPUSCULAR HEMOGLOBIN 27.5 pg (27.0-33.0); MEAN CORPUSCULAR HGB CONC 33.3 g/dl (32.0-36.5); MEAN CORPUSCULAR VOLUME 82.4 fl (80.0-96.0); MONO # 0.2 10^3/uL (0.0-0.8); NEUTROPHILS # 5.9 10^3/uL (1.8-7.7); NEUTROPHILS % 83.9 % (36.0-66.0); PLATELET COUNT, AUTOMATED 172 10^3/uL (150-450); RED BLOOD COUNT 4.04 10^6/uL (4.30-6.10); RED CELL DISTRIBUTION WIDTH 13.1 % (11.5-14.5); WHITE BLOOD COUNT 7.1 10^3/uL (4.0-10.0)
[2018-01-16 04:27] LABS: ALBUMIN 1.7 GM/DL (3.2-5.2); ALBUMIN/GLOBULIN RATIO 0.49 (1.00-1.93); ALKALINE PHOSPHATASE 56 U/L (45-117); ALT/SGPT 20 U/L (12-78); ANION GAP 10 MEQ/L (8-16); AST/SGOT 18 U/L (7-37); BILIRUBIN,TOTAL 0.8 MG/DL (0.2-1.0); BLOOD UREA NITROGEN 22 MG/DL (7-18); CALCIUM LEVEL 7.3 MG/DL (8.8-10.2); CARBON DIOXIDE LEVEL 24 MEQ/L (21-32); CHLORIDE LEVEL 111 MEQ/L (98-107); CHOLESTEROL LEVEL 72 MG/DL (< 200); CPK CREATINE PHOSPHOKINASE 173 U/L (39-308); CREATININE FOR GFR 1.38 MG/DL (0.70-1.30); GLOMERULAR FILTRATION RATE 54.5 (>49); GLUCOSE, FASTING 144 MG/DL (70-100); LDH LACTATE DEHYDROGENASE 155 U/L (87-241); PHOSPHORUS LEVEL 2.2 MG/DL (2.5-4.9); POTASSIUM SERUM 3.9 MEQ/L (3.5-5.1); SODIUM LEVEL 145 MEQ/L (136-145); TOTAL PROTEIN 5.2 GM/DL (6.4-8.2); TRIGLYCERIDES LEVEL 259 MG/DL (<150)
[2018-01-16] MEDS: SODIUM CHLORIDE 0.9% INJ 10 ML SYR IV ×3 (05:23→22:17)
[2018-01-16] MEDS: hydrALAZINE INJ 20 MG/ML VIAL IV (05:24)
[2018-01-16] MEDS: HumaLOG INSULIN (NovoLOG) PER UNIT SC ×4 (05:24→23:29)
[2018-01-16] MEDS: IPRATROPIUM 0.5MG/ALBUTEROL 2.5MG INH SOL UD 3ML (DUONEB)(J7620) NEB (07:45)
[2018-01-16] MEDS: PANTOPRAZOLE 40MG INJ (PROTONIX) (C9113) IV (07:53)
[2018-01-16] MEDS: MORPHINE 4 MG/ML 1ML VIAL/SYRINGE (J2270) IV ×2 (07:55→11:06)
[2018-01-16] MEDS: ENOXAPARIN 40 MG/0.4 ML SYRINGE (J1650) SC (07:56)
[2018-01-16 11:00] LABS: BEDSIDE GLUCOSE 175 MG/DL (80-115)
[2018-01-16] MEDS ORDERED: SLF 3 ML SYR IV (13:15)
[2018-01-16] MEDS: SLF 3 ML SYR IV ×2 (13:57→22:17)
[2018-01-16] MEDS: LISINOPRIL 40 MG TAB PO (16:17)
[2018-01-16] MEDS: FUROSEMIDE 20 MG/2 ML VIAL (J1940) IV (16:17)
[2018-01-16] MEDS: KETOROLAC 30 MG/ML VIAL (J1885) IV ×2 (16:17→22:16)
[2018-01-16 17:41] LABS: BEDSIDE GLUCOSE 179 MG/DL (80-115)
[2018-01-16] MEDS: MULTIVITAMIN -ADULT INJECTION 10 ML, CR/CU/SE/MN/ZN INJ 1 ML in AMINO AC/ELECTROLYTE/DE... IV (17:46)
[2018-01-16] MEDS: FAT EMULSION IV 20% 500 ML IV (17:46)
[2018-01-16] MEDS: ATENOLOL 50 MG TAB PO (22:16)
[2018-01-16] MEDS: ALVIMOPAN 12 MG CAPSULE (ENTEREG) PO (22:16)
[2018-01-16 23:27] LABS: BEDSIDE GLUCOSE 226 MG/DL (80-115)
[2018-01-16] MEDS: LR 1,000 ML IV (23:30)
[2018-01-17] MEDS: PIPERACILLIN/TAZOBACTAM SOD 3.375 GM in D5W MINI-BAG PLUS 50 ML IV ×4 (03:21→20:23)
[2018-01-17] MEDS: KETOROLAC 30 MG/ML VIAL (J1885) IV ×4 (03:21→21:50)
[2018-01-17 06:13] LABS: BEDSIDE GLUCOSE 200 MG/DL (80-115)
[2018-01-17] MEDS: HumaLOG INSULIN (NovoLOG) PER UNIT SC ×4 (06:20→23:58)
[2018-01-17 06:24] LABS: BASO % 0.3 % (0.0-1.0); EOS # 0.1 10^3/uL (0.0-0.50); HEMATOCRIT 34.1 % (42.0-52.0); HEMOGLOBIN 11.6 g/dl (13.5-17.5); IMMATURE GRANULOCYTE % 0.6 % (0-3.0); LYMPH # 0.7 10^3/uL (1.5-4.5); LYMPH % 10.2 % (24.0-44.0); MEAN CORPUSCULAR HEMOGLOBIN 27.4 pg (27.0-33.0); MEAN CORPUSCULAR VOLUME 80.4 fl (80.0-96.0); MONO # 0.3 10^3/uL (0.0-0.8); MONO % 4.4 % (0.0-5.0); NEUTROPHILS # 5.4 10^3/uL (1.8-7.7); NEUTROPHILS % 82.5 % (36.0-66.0); PLATELET COUNT, AUTOMATED 203 10^3/uL (150-450); RED BLOOD COUNT 4.24 10^6/uL (4.30-6.10); RED CELL DISTRIBUTION WIDTH 13.2 % (11.5-14.5); WHITE BLOOD COUNT 6.5 10^3/uL (4.0-10.0)
[2018-01-17 06:39] LABS: ALBUMIN 1.8 GM/DL (3.2-5.2); ALBUMIN/GLOBULIN RATIO 0.49 (1.00-1.93); ALKALINE PHOSPHATASE 62 U/L (45-117); ALT/SGPT 19 U/L (12-78); ANION GAP 10 MEQ/L (8-16); AST/SGOT 14 U/L (7-37); BILIRUBIN,TOTAL 0.8 MG/DL (0.2-1.0); BLOOD UREA NITROGEN 22 MG/DL (7-18); CALCIUM LEVEL 7.9 MG/DL (8.8-10.2); CARBON DIOXIDE LEVEL 26 MEQ/L (21-32); CHLORIDE LEVEL 108 MEQ/L (98-107); CHOLESTEROL LEVEL 83 MG/DL (< 200); CPK CREATINE PHOSPHOKINASE 133 U/L (39-308); CREATININE FOR GFR 1.19 MG/DL (0.70-1.30); GLOMERULAR FILTRATION RATE > 60.0 (>49); GLUCOSE, FASTING 216 MG/DL (70-100); LDH LACTATE DEHYDROGENASE 160 U/L (87-241); POTASSIUM SERUM 3.5 MEQ/L (3.5-5.1); SODIUM LEVEL 144 MEQ/L (136-145); TOTAL PROTEIN 5.5 GM/DL (6.4-8.2); TRIGLYCERIDES LEVEL 255 MG/DL (<150)
[2018-01-17] MEDS: ENOXAPARIN 40 MG/0.4 ML SYRINGE (J1650) SC (09:06)
[2018-01-17] MEDS: LISINOPRIL 40 MG TAB PO (09:06)
[2018-01-17] MEDS: ALVIMOPAN 12 MG CAPSULE (ENTEREG) PO ×2 (09:06→20:30)
[2018-01-17] MEDS: PANTOPRAZOLE 40MG INJ (PROTONIX) (C9113) IV (09:06)
[2018-01-17] MEDS: LR 1,000 ML IV (10:38)
[2018-01-17 12:31] LABS: BEDSIDE GLUCOSE 215 MG/DL (80-115)
[2018-01-17] MEDS: hydroCHLOROthiazide 25 MG TAB PO (17:06)
[2018-01-17] MEDS: DOXAZOSIN MESYLATE 1 MG TAB PO (17:07)
[2018-01-17 18:05] LABS: BEDSIDE GLUCOSE 258 MG/DL (80-115)
[2018-01-17] MEDS: ATENOLOL 50 MG TAB PO (20:31)
[2018-01-17 23:44] LABS: BEDSIDE GLUCOSE 205 MG/DL (80-115)
[2018-01-18] MEDS: PIPERACILLIN/TAZOBACTAM SOD 3.375 GM in D5W MINI-BAG PLUS 50 ML IV ×4 (02:04→20:17)
[2018-01-18] MEDS: KETOROLAC 30 MG/ML VIAL (J1885) IV ×4 (04:03→22:04)
[2018-01-18 06:18] LABS: ANION GAP 8 MEQ/L (8-16); BLOOD UREA NITROGEN 16 MG/DL (7-18); CALCIUM LEVEL 8.1 MG/DL (8.8-10.2); CARBON DIOXIDE LEVEL 29 MEQ/L (21-32); CHLORIDE LEVEL 105 MEQ/L (98-107); CREATININE FOR GFR 1.15 MG/DL (0.70-1.30); GLOMERULAR FILTRATION RATE > 60.0 (>49); GLUCOSE, FASTING 194 MG/DL (70-100); POTASSIUM SERUM 3.2 MEQ/L (3.5-5.1); SODIUM LEVEL 142 MEQ/L (136-145)
[2018-01-18] MEDS: HumaLOG INSULIN (NovoLOG) PER UNIT SC ×3 (06:31→18:06)
[2018-01-18] MEDS: ENOXAPARIN 40 MG/0.4 ML SYRINGE (J1650) SC (08:48)
[2018-01-18] MEDS: hydroCHLOROthiazide 25 MG TAB PO (08:48)
[2018-01-18] MEDS: LISINOPRIL 40 MG TAB PO (08:48)
[2018-01-18] MEDS: PANTOPRAZOLE 40MG TAB (PROTONIX) PO (08:48)
[2018-01-18] MEDS: ALVIMOPAN 12 MG CAPSULE (ENTEREG) PO (08:48)
[2018-01-18] MEDS: DOXAZOSIN MESYLATE 1 MG TAB PO (08:48)
[2018-01-18 11:45] LABS: BEDSIDE GLUCOSE 268 MG/DL (80-115)
[2018-01-18] MEDS: POTASSIUM CHLORIDE 10 MEQ SR TABLET PO (14:41)
[2018-01-18 17:03] LABS: BEDSIDE GLUCOSE 272 MG/DL (80-115)
[2018-01-18] MEDS: ATENOLOL 50 MG TAB PO (20:18)
[2018-01-19 00:14] LABS: BEDSIDE GLUCOSE 359 MG/DL (80-115)
[2018-01-19] MEDS: HumaLOG INSULIN (NovoLOG) PER UNIT SC ×3 (00:14→12:10)
[2018-01-19] MEDS: PIPERACILLIN/TAZOBACTAM SOD 3.375 GM in D5W MINI-BAG PLUS 50 ML IV ×3 (02:55→08:40)
[2018-01-19] MEDS: KETOROLAC 30 MG/ML VIAL (J1885) IV ×2 (03:49→10:00)
[2018-01-19 06:26] LABS: BEDSIDE GLUCOSE 318 MG/DL (80-115)
[2018-01-19] MEDS: hydroCHLOROthiazide 25 MG TAB PO (08:40)
[2018-01-19] MEDS: DOXAZOSIN MESYLATE 1 MG TAB PO (08:40)
[2018-01-19] MEDS: ENOXAPARIN 40 MG/0.4 ML SYRINGE (J1650) SC (08:41)
[2018-01-19] MEDS: LISINOPRIL 40 MG TAB PO (08:41)
[2018-01-19] MEDS: PANTOPRAZOLE 40MG TAB (PROTONIX) PO (08:41)
[2018-01-19] MEDS: POTASSIUM CHLORIDE 10 MEQ SR TABLET PO (08:41)
[2018-01-19 11:43] LABS: BEDSIDE GLUCOSE 293 MG/DL (80-115)
== END 2018-01-19 12:47 | disposition home health service (06) | DRG 329 ==
LOC: M ED INP 01-14 00:40 → M ICU 01-14 05:52 → M MS4PR 01-16 17:58 → M ED 20:03 → M MSPAV 01-16 20:07
PROC: 0DB80ZZ Excision of Small Intestine, Open Approach (ICD-10-PCS; principal; 2018-01-14 00:17)
PROC: 02HV33Z Insertion of Infusion Device into Superior Vena Cava, Percutaneous Approach (ICD-10-PCS; 2018-01-14 02:04)
PROC: 3E0336Z Introduction of Nutritional Substance into Peripheral Vein, Percutaneous Approach (ICD-10-PCS; 2018-01-14 02:04)
DX: K63.1 Perforation of intestine (nontraumatic) (principal); J96.01 Acute respiratory failure with hypoxia; R57.1 Hypovolemic shock; N17.9 Acute kidney failure, unspecified; C83.33 Diffuse large B-cell lymphoma, intra-abdominal lymph nodes; N40.0 Benign prostatic hyperplasia without lower urinary tract symptoms; E11.65 Type 2 diabetes mellitus with hyperglycemia; I10 Essential (primary) hypertension; E78.5 Hyperlipidemia, unspecified; Z79.4 Long term (current) use of insulin; Z79.899 Other long term (current) drug therapy

== ENCOUNTER 2018-01-26 04:40 | Emergency (ER) | payer MEDICARE ==
[2018-01-26] MEDS ORDERED: NS 500 ML IV (05:15)
[2018-01-26] MEDS ORDERED: HumuLIN R (REGULAR) INSULIN (NovoLIN R) **100U/ML** PER UNIT IV (05:15)
[2018-01-29 07:39] LABS: BEDSIDE GLUCOSE > 600 MG/DL (80-115)
== END 2018-01-26 05:33 | disposition left against medical advice (07) ==
LOC: M ED 04:40
DX: E11.65 Type 2 diabetes mellitus with hyperglycemia (principal); Z53.21 Procedure and treatment not carried out due to patient leaving prior to being seen by health care provider

== ENCOUNTER 2018-01-26 10:20 | Inpatient (IN) | payer MEDICARE ==
[2018-01-26 11:05] LABS: BASO % 0.6 % (0.0-1.0); EOS # 0.1 10^3/uL (0.0-0.50); EOS % 1.3 % (0.0-3.0); HEMATOCRIT 35.7 % (42.0-52.0); HEMOGLOBIN 12.2 g/dl (13.5-17.5); LYMPH # 1.2 10^3/uL (1.5-4.5); LYMPH % 17.6 % (24.0-44.0); MEAN CORPUSCULAR HEMOGLOBIN 27.1 pg (27.0-33.0); MEAN CORPUSCULAR HGB CONC 34.2 g/dl (32.0-36.5); MEAN CORPUSCULAR VOLUME 79.3 fl (80.0-96.0); MONO # 0.5 10^3/uL (0.0-0.8); MONO % 7.6 % (0.0-5.0); NEUTROPHILS # 4.8 10^3/uL (1.8-7.7); NEUTROPHILS % 71.9 % (36.0-66.0); PLATELET COUNT, AUTOMATED 343 10^3/uL (150-450); RED CELL DISTRIBUTION WIDTH 12.6 % (11.5-14.5); WHITE BLOOD COUNT 6.7 10^3/uL (4.0-10.0)
[2018-01-26 11:09] LABS: VENOUS BASE EXCESS -2.4 (-2.0-2.0); VENOUS HCO3 23.4 MEQ/L (23.0-27.0); VENOUS PARTIAL PRESSURE CO2 44.2 mmHg (38.0-50.0); VENOUS PH 7.342 UNITS (7.330-7.430); VENOUS STANDARD HCO3 22.4 MEQ/L; VENOUS TOTAL CO2 24.8 MEQ/L (24.0-28.0)
[2018-01-26] MEDS: NS 1,000 ML IV ×2 (11:10→16:45)
[2018-01-26 11:18] LABS: INR 1.09; PROTHROMBIN TIME 14.3 SECONDS (12.1-14.4)
[2018-01-26 11:29] LABS: LACTIC ACID SEPSIS PROTOCOL 4.1 MMOL/L (0.4-2.0)
[2018-01-26 11:29] LABS: ALBUMIN 2.8 GM/DL (3.2-5.2); ALBUMIN/GLOBULIN RATIO 0.74 (1.00-1.93); ALKALINE PHOSPHATASE 96 U/L (45-117); ALT/SGPT 26 U/L (12-78); ANION GAP 15 MEQ/L (8-16); AST/SGOT 14 U/L (7-37); BILIRUBIN,DIRECT 0.1 MG/DL (0.0-0.2); BILIRUBIN,TOTAL 0.3 MG/DL (0.2-1.0); BLOOD UREA NITROGEN 47 MG/DL (7-18); CALCIUM LEVEL 9.1 MG/DL (8.8-10.2); CARBON DIOXIDE LEVEL 22 MEQ/L (21-32); CHLORIDE LEVEL 92 MEQ/L (98-107); CK-MB VALUE MASS 1.8 NG/ML (<3.6); CPK CREATINE PHOSPHOKINASE 74 U/L (39-308); CREATININE FOR GFR 3.72 MG/DL (0.70-1.30); GLOMERULAR FILTRATION RATE 17.4 (>49); LIPASE 704 U/L (73-393); MB/CK RELATIVE INDEX 2.43 (< OR =4); POTASSIUM SERUM 4.7 MEQ/L (3.5-5.1); SODIUM LEVEL 129 MEQ/L (136-145); TOTAL PROTEIN 6.6 GM/DL (6.4-8.2); TROPONIN I 0.03 NG/ML (< 0.10)
[2018-01-26] MEDS: PIPERACILLIN/TAZOBACTAM SOD 4.5 GM in D5W MINI-BAG PLUS 50 ML IV (11:30)
[2018-01-26 11:39] LABS: GLUCOSE, FASTING 533 MG/DL (70-100)
[2018-01-26 12:31] LABS: BEDSIDE GLUCOSE 546 MG/DL (80-115)
[2018-01-26] MEDS: NS 2,590 ML in APPROPRIATE DILUENT 1 EA IV (12:33)
[2018-01-26] MEDS: HumuLIN R (REGULAR) INSULIN (NovoLIN R) **100U/ML** PER UNIT IV ×2 (13:31→14:55)
[2018-01-26 15:06] LABS: BEDSIDE GLUCOSE 497 MG/DL (80-115)
[2018-01-26] MEDS ORDERED: ACETAMINOPHEN 650 MG SUPP PR (16:30)
[2018-01-26] MEDS ORDERED: ONDANSETRON 4MG/2ML VIAL (J2405) IV (16:30)
[2018-01-26] MEDS ORDERED: GLUCOSE 4 GM CHEW TABLET PO (16:45)
[2018-01-26] MEDS ORDERED: DEXTROSE 50% 50 ML SYRINGE IV (16:45)
[2018-01-26] MEDS ORDERED: GLUCAGON FOR INJ 1 MG VIAL (J1610) SC (16:45)
[2018-01-26 16:58] LABS: BEDSIDE GLUCOSE 390 MG/DL (80-115)
[2018-01-26 17:00] LABS: OSMOLALITY SERUM 306 MOSM/KG (280-301)
[2018-01-26 17:39] LABS: BEDSIDE GLUCOSE 378 MG/DL (80-115)
[2018-01-26] MEDS: HumaLOG INSULIN (NovoLOG) PER UNIT SC ×2 (17:49→21:27)
[2018-01-26 19:57] LABS: BEDSIDE GLUCOSE 417 MG/DL (80-115)
[2018-01-26] MEDS: LEVEMIR (INSULIN DETEMIR) 1 UNITS/0.01ML SC (21:26)
[2018-01-26] MEDS: TAMSULOSIN 0.4 MG CAP PO (21:27)
[2018-01-26] MEDS: DOCUSATE SODIUM 100 MG CAP PO (21:27)
[2018-01-26] MEDS: KCL 20MEQ IN 0.45NS 1000ML 1,000 ML IV (22:20)
[2018-01-27 05:51] LABS: BASO # 0.1 10^3/uL (0.0-0.2); BASO % 0.8 % (0.0-1.0); EOS # 0.2 10^3/uL (0.0-0.50); EOS % 3.3 % (0.0-3.0); HEMATOCRIT 34.7 % (42.0-52.0); HEMOGLOBIN 11.6 g/dl (13.5-17.5); IMMATURE GRANULOCYTE % 0.5 % (0-3.0); LYMPH # 1.7 10^3/uL (1.5-4.5); LYMPH % 26.8 % (24.0-44.0); MEAN CORPUSCULAR HEMOGLOBIN 27.4 pg (27.0-33.0); MEAN CORPUSCULAR HGB CONC 33.4 g/dl (32.0-36.5); MEAN CORPUSCULAR VOLUME 81.8 fl (80.0-96.0); MONO # 0.4 10^3/uL (0.0-0.8); MONO % 6.7 % (0.0-5.0); NEUTROPHILS # 3.9 10^3/uL (1.8-7.7); NEUTROPHILS % 61.9 % (36.0-66.0); PLATELET COUNT, AUTOMATED 300 10^3/uL (150-450); RED BLOOD COUNT 4.24 10^6/uL (4.30-6.10); RED CELL DISTRIBUTION WIDTH 12.6 % (11.5-14.5); WHITE BLOOD COUNT 6.3 10^3/uL (4.0-10.0)
[2018-01-27 06:17] LABS: ALBUMIN 2.6 GM/DL (3.2-5.2); ALBUMIN/GLOBULIN RATIO 0.76 (1.00-1.93); ALKALINE PHOSPHATASE 89 U/L (45-117); ALT/SGPT 26 U/L (12-78); ANION GAP 10 MEQ/L (8-16); AST/SGOT 16 U/L (7-37); BILIRUBIN,TOTAL 0.3 MG/DL (0.2-1.0); BLOOD UREA NITROGEN 34 MG/DL (7-18); CALCIUM LEVEL 8.3 MG/DL (8.8-10.2); CARBON DIOXIDE LEVEL 23 MEQ/L (21-32); CHLORIDE LEVEL 103 MEQ/L (98-107); CREATININE FOR GFR 1.99 MG/DL (0.70-1.30); GLOMERULAR FILTRATION RATE 35.8 (>49); GLUCOSE, FASTING 291 MG/DL (70-100); POTASSIUM SERUM 4.7 MEQ/L (3.5-5.1); SODIUM LEVEL 136 MEQ/L (136-145)
[2018-01-27] MEDS: FLUoxetine 20 MG CAP PO (08:22)
[2018-01-27] MEDS: DOCUSATE SODIUM 100 MG CAP PO ×2 (08:22→22:45)
[2018-01-27] MEDS: LEVEMIR (INSULIN DETEMIR) 1 UNITS/0.01ML SC ×2 (08:23→22:43)
[2018-01-27] MEDS: ENOXAPARIN 30 MG/0.3 ML SYR (J1650) SC (08:23)
[2018-01-27] MEDS: HumaLOG INSULIN (NovoLOG) PER UNIT SC ×4 (08:23→22:43)
[2018-01-27 11:27] LABS: BEDSIDE GLUCOSE 341 MG/DL (80-115)
[2018-01-27] MEDS ORDERED: D5W/0.9% SODIUM CHLORIDE 1,000 ML IV (11:30)
[2018-01-27 17:04] LABS: BEDSIDE GLUCOSE 337 MG/DL (80-115)
[2018-01-27] MEDS: KCL 20MEQ IN 0.45NS 1000ML 1,000 ML IV (19:03)
[2018-01-27 22:13] LABS: BEDSIDE GLUCOSE 344 MG/DL (80-115)
[2018-01-27] MEDS: TAMSULOSIN 0.4 MG CAP PO (22:43)
[2018-01-28 06:30] LABS: BASO # 0.1 10^3/uL (0.0-0.2); EOS # 0.2 10^3/uL (0.0-0.50); EOS % 3.1 % (0.0-3.0); HEMATOCRIT 35.4 % (42.0-52.0); HEMOGLOBIN 11.8 g/dl (13.5-17.5); IMMATURE GRANULOCYTE % 0.6 % (0-3.0); LYMPH # 1.5 10^3/uL (1.5-4.5); LYMPH % 29.4 % (24.0-44.0); MEAN CORPUSCULAR HEMOGLOBIN 27.2 pg (27.0-33.0); MEAN CORPUSCULAR HGB CONC 33.3 g/dl (32.0-36.5); MEAN CORPUSCULAR VOLUME 81.6 fl (80.0-96.0); MONO # 0.4 10^3/uL (0.0-0.8); MONO % 7.5 % (0.0-5.0); NEUTROPHILS % 58.4 % (36.0-66.0); PLATELET COUNT, AUTOMATED 306 10^3/uL (150-450); RED BLOOD COUNT 4.34 10^6/uL (4.30-6.10); RED CELL DISTRIBUTION WIDTH 12.6 % (11.5-14.5); WHITE BLOOD COUNT 5.2 10^3/uL (4.0-10.0)
[2018-01-28 06:53] LABS: ALBUMIN 2.6 GM/DL (3.2-5.2); ALBUMIN/GLOBULIN RATIO 0.67 (1.00-1.93); ALKALINE PHOSPHATASE 94 U/L (45-117); ALT/SGPT 25 U/L (12-78); ANION GAP 8 MEQ/L (8-16); AST/SGOT 16 U/L (7-37); BILIRUBIN,TOTAL 0.3 MG/DL (0.2-1.0); BLOOD UREA NITROGEN 23 MG/DL (7-18); CALCIUM LEVEL 8.4 MG/DL (8.8-10.2); CARBON DIOXIDE LEVEL 24 MEQ/L (21-32); CHLORIDE LEVEL 105 MEQ/L (98-107); CREATININE FOR GFR 1.49 MG/DL (0.70-1.30); GLOMERULAR FILTRATION RATE 49.9 (>49); GLUCOSE, FASTING 247 MG/DL (70-100); POTASSIUM SERUM 4.5 MEQ/L (3.5-5.1); SODIUM LEVEL 137 MEQ/L (136-145); TOTAL PROTEIN 6.5 GM/DL (6.4-8.2)
[2018-01-28] MEDS: HumaLOG INSULIN (NovoLOG) PER UNIT SC ×4 (07:47→21:00)
[2018-01-28] MEDS: ENOXAPARIN 30 MG/0.3 ML SYR (J1650) SC (09:20)
[2018-01-28] MEDS: DOCUSATE SODIUM 100 MG CAP PO ×2 (09:21→21:00)
[2018-01-28] MEDS: FLUoxetine 20 MG CAP PO (09:21)
[2018-01-28] MEDS: LEVEMIR (INSULIN DETEMIR) 1 UNITS/0.01ML SC ×2 (09:21→21:11)
[2018-01-28 11:14] LABS: CORTISOL BASELINE 40.5 UG/DL (4.3-22.4)
[2018-01-28 11:44] LABS: BEDSIDE GLUCOSE 220 MG/DL (80-115)
[2018-01-28 11:59] LABS: ESTIMATED AVERAGE GLUCOSE 349 MG/DL (60-110); HEMOGLOBIN A1c 13.8 %
[2018-01-28] MEDS: KCL 20MEQ IN 0.45NS 1000ML 1,000 ML IV (14:13)
[2018-01-28 17:54] LABS: BEDSIDE GLUCOSE 217 MG/DL (80-115)
[2018-01-28 19:23] LABS: BEDSIDE GLUCOSE 192 MG/DL (80-115)
[2018-01-28] MEDS: TAMSULOSIN 0.4 MG CAP PO (21:11)
[2018-01-29] MEDS: KCL 20MEQ IN 0.45NS 1000ML 1,000 ML IV (04:49)
[2018-01-29 06:17] LABS: BEDSIDE GLUCOSE 168 MG/DL (80-115)
[2018-01-29 06:26] LABS: HEMATOCRIT 35.7 % (42.0-52.0); HEMOGLOBIN 11.6 g/dl (13.5-17.5); MEAN CORPUSCULAR HEMOGLOBIN 26.9 pg (27.0-33.0); MEAN CORPUSCULAR HGB CONC 32.5 g/dl (32.0-36.5); MEAN CORPUSCULAR VOLUME 82.8 fl (80.0-96.0); PLATELET COUNT, AUTOMATED 329 10^3/uL (150-450); RED BLOOD COUNT 4.31 10^6/uL (4.30-6.10); RED CELL DISTRIBUTION WIDTH 12.7 % (11.5-14.5); WHITE BLOOD COUNT 5.5 10^3/uL (4.0-10.0)
[2018-01-29] MEDS: FLUoxetine 20 MG CAP PO (07:57)
[2018-01-29] MEDS: DOCUSATE SODIUM 100 MG CAP PO (07:57)
[2018-01-29] MEDS: LEVEMIR (INSULIN DETEMIR) 1 UNITS/0.01ML SC (07:59)
[2018-01-29] MEDS: ENOXAPARIN 30 MG/0.3 ML SYR (J1650) SC (08:00)
[2018-01-29] MEDS: HumaLOG INSULIN (NovoLOG) PER UNIT SC ×2 (08:05→12:34)
[2018-01-29 11:56] LABS: BEDSIDE GLUCOSE 244 MG/DL (80-115)
[2018-01-29 14:28] LABS: C-PEPTIDE 1.9 ng/mL (1.1-4.4)
[2018-01-30 08:28] LABS: BEDSIDE GLUCOSE 551 MG/DL (80-115)
== END 2018-01-29 13:35 | disposition home or self-care (01) | DRG 315 ==
LOC: M ED 10:20 → M ED INP 16:30 → M MS5PR 18:33
DX: I95.89 Other hypotension (principal); N17.9 Acute kidney failure, unspecified; C83.33 Diffuse large B-cell lymphoma, intra-abdominal lymph nodes; R63.4 Abnormal weight loss; I10 Essential (primary) hypertension; E11.65 Type 2 diabetes mellitus with hyperglycemia; N40.1 Benign prostatic hyperplasia with lower urinary tract symptoms; N18.3 Chronic kidney disease, stage 3 (moderate); K59.09 Other constipation; Z79.4 Long term (current) use of insulin; Z79.899 Other long term (current) drug therapy; R53.1 Weakness

== ENCOUNTER → 2018-02-01 | Outpatient (CLI) | payer MEDICARE | LOC: M CARPUL 11:24 | DX: C83.30 Diffuse large B-cell lymphoma, unspecified site (principal); I27.20 Pulmonary hypertension, unspecified; I08.3 Combined rheumatic disorders of mitral, aortic and tricuspid valves | CPT/HCPCS: 93306 ==

== ENCOUNTER → 2018-02-12 | Outpatient (REF) | payer MEDICARE ==
[2018-02-13 11:13] LABS: HEPATITIS B SURFACE ANTIGEN NEGATIVE (NEGATIVE)
[2018-02-13 11:37] LABS: HEPATITIS B CORE ANTIBODY IGM NEGATIVE (NEGATIVE)
== END ==
LOC: M LAB REF 15:32
DX: C83.30 Diffuse large B-cell lymphoma, unspecified site (principal)
CPT/HCPCS: 87340

== ENCOUNTER → 2018-02-19 | Outpatient (CLI) | payer MEDICARE | LOC: M PLARAD 15:30 | DX: C83.30 Diffuse large B-cell lymphoma, unspecified site (principal) | CPT/HCPCS: 78815 ==

== ENCOUNTER 2018-02-26 10:17 | Day surgery (SDC) | payer MEDICARE ==
[2018-02-26 11:08] LABS: BEDSIDE GLUCOSE 157 MG/DL (80-115)
[2018-02-26] MEDS ORDERED: ceFAZolin 2 GM/D5W 50 ML IV BAG (J0690 PER 500MG) As Ordered (11:19)
[2018-02-26] MEDS ORDERED: ONDANSETRON 4MG/2ML VIAL (J2405) As Ordered ×2 (12:08→12:57)
[2018-02-26] MEDS ORDERED: LIDOCAINE 2% INJ 100 MG/5 ML SDV (FOR ANES.) As Ordered ×2 (12:08→12:57)
[2018-02-26] MEDS ORDERED: PROPOFOL 200 MG/20 ML VIAL As Ordered ×2 (12:08→12:57)
[2018-02-26] MEDS ORDERED: fentaNYL 100 MCG/2 ML INJECTION (J3010) As Ordered ×2 (12:08→12:57)
[2018-02-26] MEDS ORDERED: MIDAZOLAM INJ 2 MG/2 ML VIAL (J2250) As Ordered ×2 (12:08→12:57)
[2018-02-26] MEDS: ATENOLOL 25 MG TAB PO (12:23)
[2018-02-26] MEDS ORDERED: LR 1,000 ML IV (12:30)
[2018-02-26] MEDS: LIDOCAINE 1% SDV INJ 30 ML VIAL As Ordered (12:35)
[2018-02-26] MEDS: BUPIVACAINE LIPOSOME/PF 1.3% 20 ML VIAL (13.3MG/ML)(EXPAREL) As Ordered (12:36)
[2018-02-26] MEDS: MUPIROCIN 2% OINT 22 GM TUBE TOP (12:37)
[2018-02-26] MEDS ORDERED: LABETALOL HCL 100 MG/20 ML VIAL As Ordered (12:39)
[2018-02-26] MEDS: HEPARIN SOD (PORCINE) 5000 UNITS/ML VIAL As Ordered (12:57)
== END 2018-02-26 13:35 | disposition home or self-care (01) ==
LOC: M OPP 10:17 → M SDC 10:17
DX: C83.30 Diffuse large B-cell lymphoma, unspecified site (principal); C17.1 Malignant neoplasm of jejunum; I10 Essential (primary) hypertension; E11.9 Type 2 diabetes mellitus without complications; K21.9 Gastro-esophageal reflux disease without esophagitis; J45.909 Unspecified asthma, uncomplicated
CPT/HCPCS: 36561

== ENCOUNTER → 2018-03-07 | Outpatient (CLI) | payer MEDICARE | LOC: M SMT 10:21 | DX: C83.30 Diffuse large B-cell lymphoma, unspecified site (principal) | CPT/HCPCS: 71046 ==

== ENCOUNTER → 2018-03-25 | Outpatient (REF) | payer MEDICARE ==
[2018-03-25 11:09] LABS: ESTIMATED AVERAGE GLUCOSE 272 MG/DL (60-110); HEMOGLOBIN A1c 11.1 %
== END ==
LOC: M SFHCPLAZ 09:46
DX: E11.8 Type 2 diabetes mellitus with unspecified complications (principal)
CPT/HCPCS: 83036

== ENCOUNTER 2018-04-16 09:34 | Emergency (ER) | payer MEDICARE ==
[2018-04-16 10:06] LABS: BEDSIDE GLUCOSE 572 MG/DL (80-115)
[2018-04-16 10:29] LABS: HEMATOCRIT 37.8 % (42.0-52.0); HEMOGLOBIN 12.9 g/dl (13.5-17.5); MEAN CORPUSCULAR HEMOGLOBIN 28.3 pg (27.0-33.0); MEAN CORPUSCULAR HGB CONC 34.1 g/dl (32.0-36.5); MEAN CORPUSCULAR VOLUME 82.9 fl (80.0-96.0); PLATELET COUNT, AUTOMATED 195 10^3/uL (150-450); RED BLOOD COUNT 4.56 10^6/uL (4.30-6.10); RED CELL DISTRIBUTION WIDTH 14.7 % (11.5-14.5); VENOUS HCO3 23.9 MEQ/L (23.0-27.0); VENOUS O2 SATURATION 82.3 % (60.0-80.0); VENOUS PARTIAL PRESSURE CO2 36.5 mmHg (38.0-50.0); VENOUS PARTIAL PRESSURE O2 43.1 mmHg (30.0-50.0); VENOUS PH 7.434 UNITS (7.330-7.430); VENOUS STANDARD HCO3 24.2 MEQ/L; WHITE BLOOD COUNT 10.8 10^3/uL (4.0-10.0)
[2018-04-16] MEDS: NS 1,000 ML IV (10:32)
[2018-04-16 10:34] LABS: ADD MANUAL DIFFER YES; DIFF SLIDE NUMBER 213; POS COUNT POS FLAG; POSITIVE MORPH POS FLAG
[2018-04-16 10:49] LABS: LYMPHOCYTES 9 % (16-52); MONOCYTES 1 % (0-8); NEUTROPHILS 90 % (35-75)
[2018-04-16 10:50] LABS: PLATELET ESTIMATE NORMAL (NORMAL)
[2018-04-16 11:08] LABS: ALBUMIN 2.8 GM/DL (3.2-5.2); ALBUMIN/GLOBULIN RATIO 1.17 (1.00-1.93); ALKALINE PHOSPHATASE 66 U/L (45-117); ALT/SGPT 38 U/L (12-78); ANION GAP 10 MEQ/L (8-16); AST/SGOT 13 U/L (7-37); BILIRUBIN,DIRECT 0.1 MG/DL (0.0-0.2); BILIRUBIN,TOTAL 0.4 MG/DL (0.2-1.0); BLOOD UREA NITROGEN 21 MG/DL (7-18); CALCIUM LEVEL 8.7 MG/DL (8.8-10.2); CARBON DIOXIDE LEVEL 24 MEQ/L (21-32); CHLORIDE LEVEL 97 MEQ/L (98-107); CREATININE FOR GFR 1.07 MG/DL (0.70-1.30); GLOMERULAR FILTRATION RATE > 60.0 (>49); GLUCOSE, FASTING 574 MG/DL (70-100); LIPASE 117 U/L (73-393); POTASSIUM SERUM 4.8 MEQ/L (3.5-5.1); SODIUM LEVEL 131 MEQ/L (136-145); TOTAL PROTEIN 5.2 GM/DL (6.4-8.2)
[2018-04-16 11:26] LABS: BEDSIDE GLUCOSE 427 MG/DL (80-115)
[2018-04-16 11:41] LABS: ESTIMATED AVERAGE GLUCOSE 344 MG/DL (60-110); HEMOGLOBIN A1c 13.6 %
[2018-04-16] MEDS: HumuLIN R (REGULAR) INSULIN (NovoLIN R) **100U/ML** PER UNIT IV (12:00)
[2018-04-16 12:44] LABS: BEDSIDE GLUCOSE 373 MG/DL (80-115)
== END 2018-04-16 13:49 | disposition home or self-care (01) ==
LOC: M ED 09:34
DX: E11.65 Type 2 diabetes mellitus with hyperglycemia (principal); Z91.14 Patient's other noncompliance with medication regimen; I12.9 Hypertensive chronic kidney disease with stage 1 through stage 4 chronic kidney disease, or unspecified chronic kidney disease; E78.5 Hyperlipidemia, unspecified; N18.3 Chronic kidney disease, stage 3 (moderate); E11.22 Type 2 diabetes mellitus with diabetic chronic kidney disease; C83.30 Diffuse large B-cell lymphoma, unspecified site; Z79.899 Other long term (current) drug therapy; Z79.4 Long term (current) use of insulin
CPT/HCPCS: 83690

== ENCOUNTER 2018-04-20 18:20 | Inpatient (IN) | payer MEDICARE ==
[2018-04-20] MEDS: IPRATROPIUM 0.5MG/ALBUTEROL 2.5MG INH SOL UD 3ML (DUONEB)(J7620) NEB (18:49)
[2018-04-20] MEDS: ALBUTEROL SULFATE 2.5 MG/0.5 ML INH NEB SOLN INH (18:49)
[2018-04-20 19:02] LABS: ABG BASE EXCESS 1.7 (-2.0-2.0); ABG HCO3 24.3 MEQ/L (22.0-26.0); ABG O2 SATURATION 94.8 % (95.0-99.0); ABG PARTIAL PRESSURE CO2 31.8 mmHg (35.0-45.0); ABG PARTIAL PRESSURE O2 69.3 mmHg (75.0-100.0); ABG STANDARD HCO3 25.9 MEQ/L (22.0-26.0); ABG TOTAL CO2 25.3 MEQ/L (23.0-31.0); ABG pH (ARTERIAL) 7.501 UNITS (7.350-7.450)
[2018-04-20 19:14] LABS: BASO % 0.2 % (0.0-1.0); EOS % 0.1 % (0.0-3.0); HEMOGLOBIN 11.2 g/dl (13.5-17.5); IMMATURE GRANULOCYTE % 2.5 % (0-3.0); LYMPH # 0.5 10^3/uL (1.5-4.5); LYMPH % 5.5 % (24.0-44.0); MEAN CORPUSCULAR HEMOGLOBIN 28.2 pg (27.0-33.0); MEAN CORPUSCULAR HGB CONC 33.9 g/dl (32.0-36.5); MEAN CORPUSCULAR VOLUME 83.1 fl (80.0-96.0); MONO # 0.7 10^3/uL (0.0-0.8); MONO % 7.6 % (0.0-5.0); NEUTROPHILS # 7.3 10^3/uL (1.8-7.7); NEUTROPHILS % 84.1 % (36.0-66.0); PLATELET COUNT, AUTOMATED 169 10^3/uL (150-450); RED BLOOD COUNT 3.97 10^6/uL (4.30-6.10); RED CELL DISTRIBUTION WIDTH 15.5 % (11.5-14.5); WHITE BLOOD COUNT 8.7 10^3/uL (4.0-10.0)
[2018-04-20 19:16] LABS: VENOUS BASE EXCESS 0.7 (-2.0-2.0); VENOUS HCO3 24.2 MEQ/L (23.0-27.0); VENOUS O2 SATURATION 94.5 % (60.0-80.0); VENOUS PARTIAL PRESSURE O2 68.5 mmHg (30.0-50.0); VENOUS PH 7.458 UNITS (7.330-7.430); VENOUS STANDARD HCO3 25.1 MEQ/L; VENOUS TOTAL CO2 25.3 MEQ/L (24.0-28.0)
[2018-04-20 19:34] LABS: INR 1.02; PROTHROMBIN TIME 13.5 SECONDS (12.1-14.4)
[2018-04-20 19:35] LABS: ESTIMATED AVERAGE GLUCOSE 355 MG/DL (60-110); PARTIAL THROMBOPLASTIN TIME 27.6 SECONDS (25.4-37.6)
[2018-04-20 19:41] LABS: OSMOLALITY SERUM 294 MOSM/KG (280-301)
[2018-04-20 19:48] LABS: BEDSIDE GLUCOSE 448 MG/DL (80-115)
[2018-04-20 19:58] LABS: ACETONE/KETONE 5.76 MG/DL (<2.81); ALBUMIN 2.7 GM/DL (3.2-5.2); ALBUMIN/GLOBULIN RATIO 1.04 (1.00-1.93); ALKALINE PHOSPHATASE 67 U/L (45-117); ALT/SGPT 34 U/L (12-78); ANION GAP 8 MEQ/L (8-16); AST/SGOT 16 U/L (7-37); BILIRUBIN,DIRECT 0.2 MG/DL (0.0-0.2); BILIRUBIN,TOTAL 0.7 MG/DL (0.2-1.0); BLOOD UREA NITROGEN 19 MG/DL (7-18); CALCIUM LEVEL 8.3 MG/DL (8.8-10.2); CARBON DIOXIDE LEVEL 26 MEQ/L (21-32); CHLORIDE LEVEL 96 MEQ/L (98-107); CPK CREATINE PHOSPHOKINASE 63 U/L (39-308); GLOMERULAR FILTRATION RATE > 60.0 (>49); GLUCOSE, FASTING 429 MG/DL (70-100); LIPASE 111 U/L (73-393); MAGNESIUM LEVEL 1.5 MG/DL (1.8-2.4); MB/CK RELATIVE INDEX 2.22 (< OR =4); PHOSPHORUS LEVEL 1.9 MG/DL (2.5-4.9); POTASSIUM SERUM 4.4 MEQ/L (3.5-5.1); SODIUM LEVEL 130 MEQ/L (136-145); TOTAL PROTEIN 5.3 GM/DL (6.4-8.2); TROPONIN I 0.06 NG/ML (< 0.10)
[2018-04-20 19:59] LABS: ETHYL ALCOHOL (ETHANOL) < 0.003 % (0.000-0.010)
[2018-04-20 20:04] LABS: LACTIC ACID SEPSIS PROTOCOL 1.9 MMOL/L (0.4-2.0)
[2018-04-20] MEDS: HumuLIN R (REGULAR) INSULIN (NovoLIN R) **100U/ML** PER UNIT IV (20:30)
[2018-04-20] MEDS: NS 500 ML IV (20:30)
[2018-04-20 21:27] LABS: BEDSIDE GLUCOSE 282 MG/DL (80-115)
[2018-04-20] MEDS ORDERED: ISOVUE-370 76% 100ML VIAL (Q9967) As Ordered (21:38)
[2018-04-20] MEDS ORDERED: DEXTROSE 50% 50 ML SYRINGE IV (23:45)
[2018-04-20] MEDS: cefTRIAXone SOD 1 GM in D5W MINI-BAG PLUS 50 ML IV (23:45)
[2018-04-20] MEDS: K-PHOS NEUTRAL 250MG TABLET (SOD.PHOSPHATE/POT.PHOSPHATE) PO (23:45)
[2018-04-20] MEDS ORDERED: GLUCOSE 4 GM CHEW TABLET PO (23:45)
[2018-04-20] MEDS: MAGNESIUM OXIDE 400 MG TAB (MAG-OX) PO (23:45)
[2018-04-20] MEDS ORDERED: GLUCAGON FOR INJ 1 MG VIAL (J1610) SC (23:45)
[2018-04-20] MEDS: AZITHROMYCIN 250 MG TAB PO (23:46)
[2018-04-21] MEDS ORDERED: PROCHLORPERAZINE 5 MG TAB (S0183) PO
[2018-04-21 00:14] LABS: VENOUS BASE EXCESS -0.5 (-2.0-2.0); VENOUS HCO3 22.9 MEQ/L (23.0-27.0); VENOUS PARTIAL PRESSURE CO2 33.5 mmHg (38.0-50.0); VENOUS PARTIAL PRESSURE O2 59.9 mmHg (30.0-50.0); VENOUS PH 7.452 UNITS (7.330-7.430); VENOUS STANDARD HCO3 23.9 MEQ/L; VENOUS TOTAL CO2 23.9 MEQ/L (24.0-28.0)
[2018-04-21 00:38] LABS: MAGNESIUM LEVEL 1.6 MG/DL (1.8-2.4)
[2018-04-21] MEDS: HumaLOG INSULIN (NovoLOG) PER UNIT SC ×5 (01:00→20:36)
[2018-04-21] MEDS: NS 1,000 ML IV (01:19)
[2018-04-21 01:27] LABS: BEDSIDE GLUCOSE 362 MG/DL (80-115)
[2018-04-21] MEDS: IPRATROPIUM 0.5MG/ALBUTEROL 2.5MG INH SOL UD 3ML (DUONEB)(J7620) NEB ×4 (02:00→19:57)
[2018-04-21 03:08] LABS: KETONE, URINE AUTO RFX TRACE mg/dL (NEGATIVE); LEUKOCYTE ESTERASE UR AUTO RFX NEGATIVE (NEGATIVE); NITRITE, URINE AUTO RFX NEGATIVE (NEGATIVE); RBC, URINE AUTO RFX 4 /HPF (0-3); SPECIFIC GRAVITY UR AUTO RFX 1.032 (1.002-1.035); SQUAM EPITHELIAL CELL UR AURFX 0 /HPF (0-6); WBC, URINE AUTO RFX 2 /HPF (0-3)
[2018-04-21 03:28] LABS: AMPHETAMINES LEVEL URINE NEGATIVE (NEGATIVE); BARBITURATES URINE NEGATIVE (NEGATIVE); BENZODIAZEPINES URINE NEGATIVE (NEGATIVE); CANNABINOIDS URINE NEGATIVE (NEGATIVE); COCAINE METABOLITE URINE NEGATIVE (NEGATIVE); METHADONE URINE NEGATIVE (NEGATIVE); OPIATES URINE NEGATIVE (NEGATIVE); PHENCYCLIDINE URINE NEGATIVE (NEGATIVE)
[2018-04-21] MEDS ORDERED: DEXTROSE 50% 50 ML SYRINGE IV (04:45)
[2018-04-21 04:47] LABS: HEMOGLOBIN 10.6 g/dl (13.5-17.5); MEAN CORPUSCULAR HEMOGLOBIN 28.7 pg (27.0-33.0); MEAN CORPUSCULAR HGB CONC 34.2 g/dl (32.0-36.5); PLATELET COUNT, AUTOMATED 167 10^3/uL (150-450); RED BLOOD COUNT 3.69 10^6/uL (4.30-6.10); RED CELL DISTRIBUTION WIDTH 15.5 % (11.5-14.5); WHITE BLOOD COUNT 7.2 10^3/uL (4.0-10.0)
[2018-04-21 05:07] LABS: ANION GAP 8 MEQ/L (8-16); BLOOD UREA NITROGEN 14 MG/DL (7-18); CALCIUM LEVEL 7.4 MG/DL (8.8-10.2); CARBON DIOXIDE LEVEL 26 MEQ/L (21-32); CHLORIDE LEVEL 102 MEQ/L (98-107); CREATININE FOR GFR 0.77 MG/DL (0.70-1.30); GLOMERULAR FILTRATION RATE > 60.0 (>49); GLUCOSE, FASTING 335 MG/DL (70-100); MAGNESIUM LEVEL 1.7 MG/DL (1.8-2.4); PHOSPHORUS LEVEL 2.2 MG/DL (2.5-4.9); POTASSIUM SERUM 3.7 MEQ/L (3.5-5.1); SODIUM LEVEL 136 MEQ/L (136-145)
[2018-04-21] MEDS: HEPARIN SOD (PORCINE) 5000 UNITS/ML VIAL SC ×3 (05:29→21:06)
[2018-04-21] MEDS: ONDANSETRON 4MG/2ML VIAL (J2405) IV (07:01)
[2018-04-21] MEDS ORDERED: AZITHROMYCIN INJ 500 MG, VIAL MATE ADAPTER 1 EACH in D5W 250 ML IV (09:00)
[2018-04-21] MEDS ORDERED: cefTRIAXone SOD 1 GM in D5W MINI-BAG PLUS 50 ML IV (10:00)
[2018-04-21] MEDS: LEVEMIR (INSULIN DETEMIR) 1 UNITS/0.01ML SC ×2 (10:07→21:06)
[2018-04-21] MEDS: ATORVASTATIN 20 MG TAB PO (10:09)
[2018-04-21] MEDS: ATENOLOL 50 MG TAB PO (10:10)
[2018-04-21] MEDS: FLUoxetine 20 MG CAP PO (10:11)
[2018-04-21 12:01] LABS: BEDSIDE GLUCOSE 338 MG/DL (80-115)
[2018-04-21] MEDS: MAG SULF 1GM/100ML (MAG RUN) 1 GM in APPROPRIATE DILUENT 1 EA IV (12:08)
[2018-04-21] MEDS: cefTRIAXone SOD 2 GM in D5W MINI-BAG PLUS 50 ML IV (13:07)
[2018-04-21] MEDS: DOXYCYCLINE HYCLATE 100 MG in D5W MINI-BAG PLUS 100 ML IV ×2 (13:56→23:31)
[2018-04-21 17:28] LABS: BEDSIDE GLUCOSE 277 MG/DL (80-115)
[2018-04-21] MEDS: ACETAMINOPHEN TAB 650MG DOSE (2X325MG) PO (18:09)
[2018-04-21 20:08] LABS: BEDSIDE GLUCOSE 218 MG/DL (80-115)
[2018-04-21] MEDS ORDERED: SLF 3 ML SYR IV (23:45)
[2018-04-22] MEDS: IPRATROPIUM 0.5MG/ALBUTEROL 2.5MG INH SOL UD 3ML (DUONEB)(J7620) NEB ×3 (01:38→20:00)
[2018-04-22] MEDS: SLF 3 ML SYR IV ×3 (06:00→21:46)
[2018-04-22 06:13] LABS: BASO % 0.4 % (0.0-1.0); EOS % 0.7 % (0.0-3.0); HEMATOCRIT 28.8 % (42.0-52.0); HEMOGLOBIN 9.6 g/dl (13.5-17.5); IMMATURE GRANULOCYTE % 1.9 % (0-3.0); LYMPH # 0.5 10^3/uL (1.5-4.5); LYMPH % 8.2 % (24.0-44.0); MEAN CORPUSCULAR HGB CONC 33.3 g/dl (32.0-36.5); MONO # 0.5 10^3/uL (0.0-0.8); MONO % 8.1 % (0.0-5.0); NEUTROPHILS # 4.6 10^3/uL (1.8-7.7); NEUTROPHILS % 80.7 % (36.0-66.0); PLATELET COUNT, AUTOMATED 165 10^3/uL (150-450); RED BLOOD COUNT 3.43 10^6/uL (4.30-6.10); RED CELL DISTRIBUTION WIDTH 15.6 % (11.5-14.5); WHITE BLOOD COUNT 5.7 10^3/uL (4.0-10.0)
[2018-04-22 06:17] LABS: ANION GAP 6 MEQ/L (8-16); BLOOD UREA NITROGEN 13 MG/DL (7-18); CALCIUM LEVEL 7.6 MG/DL (8.8-10.2); CARBON DIOXIDE LEVEL 26 MEQ/L (21-32); CHLORIDE LEVEL 104 MEQ/L (98-107); CREATININE FOR GFR 0.65 MG/DL (0.70-1.30); GLOMERULAR FILTRATION RATE > 60.0 (>49); GLUCOSE, FASTING 163 MG/DL (70-100); MAGNESIUM LEVEL 1.8 MG/DL (1.8-2.4); POTASSIUM SERUM 3.3 MEQ/L (3.5-5.1); SODIUM LEVEL 136 MEQ/L (136-145)
[2018-04-22] MEDS: HEPARIN SOD (PORCINE) 5000 UNITS/ML VIAL SC ×3 (06:28→21:45)
[2018-04-22] MEDS: ONDANSETRON 4MG/2ML VIAL (J2405) IV (06:28)
[2018-04-22] MEDS: FLUoxetine 20 MG CAP PO (08:35)
[2018-04-22] MEDS: ATORVASTATIN 20 MG TAB PO (08:35)
[2018-04-22] MEDS: HumaLOG INSULIN (NovoLOG) PER UNIT SC ×4 (08:35→21:00)
[2018-04-22] MEDS: ATENOLOL 50 MG TAB PO (08:35)
[2018-04-22] MEDS: LEVEMIR (INSULIN DETEMIR) 1 UNITS/0.01ML SC ×2 (08:36→21:00)
[2018-04-22] MEDS: cefTRIAXone SOD 2 GM in D5W MINI-BAG PLUS 50 ML IV (11:42)
[2018-04-22 12:13] LABS: BEDSIDE GLUCOSE 199 MG/DL (80-115)
[2018-04-22] MEDS: POTASSIUM CHLORIDE 10 MEQ SR TABLET PO (12:13)
[2018-04-22] MEDS: DOXYCYCLINE HYCLATE 100 MG in D5W MINI-BAG PLUS 100 ML IV (12:35)
[2018-04-22 16:34] LABS: BEDSIDE GLUCOSE 104 MG/DL (80-115)
[2018-04-22 20:15] LABS: BEDSIDE GLUCOSE 188 MG/DL (80-115)
[2018-04-22] MEDS: ACETAMINOPHEN TAB 650MG DOSE (2X325MG) PO (20:32)
[2018-04-23] MEDS: IPRATROPIUM 0.5MG/ALBUTEROL 2.5MG INH SOL UD 3ML (DUONEB)(J7620) NEB ×4 (02:00→20:00)
[2018-04-23] MEDS: SLF 3 ML SYR IV ×3 (05:25→23:15)
[2018-04-23] MEDS: HEPARIN SOD (PORCINE) 5000 UNITS/ML VIAL SC ×3 (05:35→23:15)
[2018-04-23 05:58] LABS: BASO % 0.3 % (0.0-1.0); EOS % 0.3 % (0.0-3.0); HEMATOCRIT 30.7 % (42.0-52.0); HEMOGLOBIN 10.1 g/dl (13.5-17.5); IMMATURE GRANULOCYTE % 1.5 % (0-3.0); LYMPH # 0.3 10^3/uL (1.5-4.5); LYMPH % 5.5 % (24.0-44.0); MEAN CORPUSCULAR HGB CONC 32.9 g/dl (32.0-36.5); MONO # 0.6 10^3/uL (0.0-0.8); MONO % 10.1 % (0.0-5.0); NEUTROPHILS # 5.1 10^3/uL (1.8-7.7); NEUTROPHILS % 82.3 % (36.0-66.0); PLATELET COUNT, AUTOMATED 176 10^3/uL (150-450); RED BLOOD COUNT 3.61 10^6/uL (4.30-6.10); RED CELL DISTRIBUTION WIDTH 15.8 % (11.5-14.5); WHITE BLOOD COUNT 6.2 10^3/uL (4.0-10.0)
[2018-04-23 06:26] LABS: ANION GAP 8 MEQ/L (8-16); BLOOD UREA NITROGEN 10 MG/DL (7-18); CALCIUM LEVEL 8.1 MG/DL (8.8-10.2); CARBON DIOXIDE LEVEL 26 MEQ/L (21-32); CHLORIDE LEVEL 102 MEQ/L (98-107); CREATININE FOR GFR 0.71 MG/DL (0.70-1.30); GLOMERULAR FILTRATION RATE > 60.0 (>49); GLUCOSE, FASTING 164 MG/DL (70-100); MAGNESIUM LEVEL 1.6 MG/DL (1.8-2.4); POTASSIUM SERUM 3.7 MEQ/L (3.5-5.1); SODIUM LEVEL 136 MEQ/L (136-145)
[2018-04-23] MEDS: HumaLOG INSULIN (NovoLOG) PER UNIT SC ×4 (08:12→21:00)
[2018-04-23] MEDS: ATORVASTATIN 20 MG TAB PO (08:12)
[2018-04-23] MEDS: LEVEMIR (INSULIN DETEMIR) 1 UNITS/0.01ML SC ×2 (08:12→21:00)
[2018-04-23] MEDS: FLUoxetine 20 MG CAP PO (08:13)
[2018-04-23] MEDS: ATENOLOL 50 MG TAB PO (08:13)
[2018-04-23] MEDS: ONDANSETRON 4MG/2ML VIAL (J2405) IV ×2 (08:13→11:44)
[2018-04-23 11:44] LABS: BEDSIDE GLUCOSE 211 MG/DL (80-115)
[2018-04-23] MEDS: cefTRIAXone SOD 2 GM in D5W MINI-BAG PLUS 50 ML IV (11:45)
[2018-04-23] MEDS: MAGNESIUM OXIDE 400 MG TAB (MAG-OX) PO ×2 (11:45→23:14)
[2018-04-23] MEDS: DOXYCYCLINE HYCLATE 100 MG in D5W MINI-BAG PLUS 100 ML IV ×3 (12:33→23:15)
[2018-04-23 14:09] LABS: BEDSIDE GLUCOSE 409 MG/DL (80-115)
[2018-04-23 17:16] LABS: BEDSIDE GLUCOSE 140 MG/DL (80-115)
[2018-04-23 20:43] LABS: BEDSIDE GLUCOSE 92 MG/DL (80-115)
[2018-04-23 22:56] LABS: BEDSIDE GLUCOSE 103 MG/DL (80-115)
[2018-04-23] MEDS: ACETAMINOPHEN TAB 650MG DOSE (2X325MG) PO (23:14)
[2018-04-24] MEDS: IPRATROPIUM 0.5MG/ALBUTEROL 2.5MG INH SOL UD 3ML (DUONEB)(J7620) NEB ×5 (02:00→20:00)
[2018-04-24] MEDS: HEPARIN SOD (PORCINE) 5000 UNITS/ML VIAL SC ×3 (05:56→21:46)
[2018-04-24] MEDS: SLF 3 ML SYR IV ×3 (06:14→21:46)
[2018-04-24 06:34] LABS: BASO % 0.4 % (0.0-1.0); EOS % 0.6 % (0.0-3.0); HEMATOCRIT 34.4 % (42.0-52.0); IMMATURE GRANULOCYTE % 2.6 % (0-3.0); LYMPH # 0.4 10^3/uL (1.5-4.5); LYMPH % 7.2 % (24.0-44.0); MEAN CORPUSCULAR HEMOGLOBIN 27.6 pg (27.0-33.0); MEAN CORPUSCULAR VOLUME 86.4 fl (80.0-96.0); MONO # 0.6 10^3/uL (0.0-0.8); MONO % 10.2 % (0.0-5.0); NEUTROPHILS # 4.3 10^3/uL (1.8-7.7); PLATELET COUNT, AUTOMATED 204 10^3/uL (150-450); RED BLOOD COUNT 3.98 10^6/uL (4.30-6.10); RED CELL DISTRIBUTION WIDTH 16.1 % (11.5-14.5); WHITE BLOOD COUNT 5.4 10^3/uL (4.0-10.0)
[2018-04-24 06:57] LABS: ANION GAP 6 MEQ/L (8-16); BLOOD UREA NITROGEN 14 MG/DL (7-18); CALCIUM LEVEL 8.6 MG/DL (8.8-10.2); CARBON DIOXIDE LEVEL 29 MEQ/L (21-32); CHLORIDE LEVEL 105 MEQ/L (98-107); CREATININE FOR GFR 0.73 MG/DL (0.70-1.30); GLOMERULAR FILTRATION RATE > 60.0 (>49); GLUCOSE, FASTING 73 MG/DL (70-100); MAGNESIUM LEVEL 1.9 MG/DL (1.8-2.4); POTASSIUM SERUM 3.6 MEQ/L (3.5-5.1); SODIUM LEVEL 140 MEQ/L (136-145)
[2018-04-24] MEDS: HumaLOG INSULIN (NovoLOG) PER UNIT SC ×4 (07:47→21:47)
[2018-04-24] MEDS: ATENOLOL 50 MG TAB PO (09:12)
[2018-04-24] MEDS: FLUoxetine 20 MG CAP PO (09:12)
[2018-04-24] MEDS: DOXYCYCLINE HYCLATE 100 MG TAB PO ×2 (09:12→21:46)
[2018-04-24] MEDS: ATORVASTATIN 20 MG TAB PO (09:13)
[2018-04-24] MEDS: MAGNESIUM OXIDE 400 MG TAB (MAG-OX) PO ×2 (09:13→21:46)
[2018-04-24] MEDS: ONDANSETRON 4MG/2ML VIAL (J2405) IV (09:13)
[2018-04-24] MEDS: CEFUROXIME 500 MG TAB PO ×2 (09:13→21:45)
[2018-04-24] MEDS: LEVEMIR (INSULIN DETEMIR) 1 UNITS/0.01ML SC ×2 (09:23→21:48)
[2018-04-24 13:05] LABS: BEDSIDE GLUCOSE 235 MG/DL (80-115)
[2018-04-24] MEDS: ACETAMINOPHEN TAB 650MG DOSE (2X325MG) PO (16:38)
[2018-04-24 17:18] LABS: BEDSIDE GLUCOSE 226 MG/DL (80-115)
[2018-04-24 20:50] LABS: BEDSIDE GLUCOSE 291 MG/DL (80-115)
[2018-04-24] MEDS: guaiFENesin ER 600 MG TAB PO (21:46)
[2018-04-25] MEDS: IPRATROPIUM 0.5MG/ALBUTEROL 2.5MG INH SOL UD 3ML (DUONEB)(J7620) NEB ×4 (02:00→20:00)
[2018-04-25] MEDS: ACETAMINOPHEN TAB 650MG DOSE (2X325MG) PO ×2 (02:27→15:50)
[2018-04-25] MEDS: HEPARIN SOD (PORCINE) 5000 UNITS/ML VIAL SC ×3 (05:30→22:17)
[2018-04-25] MEDS: SLF 3 ML SYR IV ×3 (05:30→22:00)
[2018-04-25 07:24] LABS: BASO % 0.5 % (0.0-1.0); EOS % 0.5 % (0.0-3.0); HEMATOCRIT 31.8 % (42.0-52.0); HEMOGLOBIN 10.5 g/dl (13.5-17.5); IMMATURE GRANULOCYTE % 1.5 % (0-3.0); LYMPH # 0.8 10^3/uL (1.5-4.5); LYMPH % 12.6 % (24.0-44.0); MEAN CORPUSCULAR HEMOGLOBIN 27.5 pg (27.0-33.0); MEAN CORPUSCULAR VOLUME 83.2 fl (80.0-96.0); MONO # 0.6 10^3/uL (0.0-0.8); MONO % 10.2 % (0.0-5.0); NEUTROPHILS # 4.5 10^3/uL (1.8-7.7); NEUTROPHILS % 74.7 % (36.0-66.0); PLATELET COUNT, AUTOMATED 241 10^3/uL (150-450); RED BLOOD COUNT 3.82 10^6/uL (4.30-6.10); WHITE BLOOD COUNT 6.1 10^3/uL (4.0-10.0)
[2018-04-25] MEDS: HumaLOG INSULIN (NovoLOG) PER UNIT SC ×4 (07:30→21:00)
[2018-04-25 07:47] LABS: ANION GAP 7 MEQ/L (8-16); BLOOD UREA NITROGEN 11 MG/DL (7-18); CALCIUM LEVEL 8.6 MG/DL (8.8-10.2); CARBON DIOXIDE LEVEL 27 MEQ/L (21-32); CHLORIDE LEVEL 105 MEQ/L (98-107); CREATININE FOR GFR 0.68 MG/DL (0.70-1.30); GLOMERULAR FILTRATION RATE > 60.0 (>49); GLUCOSE, FASTING 63 MG/DL (70-100); MAGNESIUM LEVEL 2.1 MG/DL (1.8-2.4); POTASSIUM SERUM 3.5 MEQ/L (3.5-5.1); SODIUM LEVEL 139 MEQ/L (136-145)
[2018-04-25 08:14] LABS: BEDSIDE GLUCOSE 153 MG/DL (80-115)
[2018-04-25] MEDS: DOXYCYCLINE HYCLATE 100 MG TAB PO (09:06)
[2018-04-25] MEDS: FLUoxetine 20 MG CAP PO (09:06)
[2018-04-25] MEDS: ATORVASTATIN 20 MG TAB PO (09:06)
[2018-04-25] MEDS: CEFUROXIME 500 MG TAB PO (09:06)
[2018-04-25] MEDS: ATENOLOL 50 MG TAB PO (09:06)
[2018-04-25] MEDS: guaiFENesin ER 600 MG TAB PO ×2 (09:06→22:17)
[2018-04-25] MEDS: MAGNESIUM OXIDE 400 MG TAB (MAG-OX) PO ×2 (09:07→22:17)
[2018-04-25] MEDS: LEVEMIR (INSULIN DETEMIR) 1 UNITS/0.01ML SC ×2 (09:07→22:16)
[2018-04-25 12:08] LABS: BEDSIDE GLUCOSE 160 MG/DL (80-115)
[2018-04-25 17:12] LABS: BEDSIDE GLUCOSE 181 MG/DL (80-115)
[2018-04-25] MEDS: LevoFLOXacin 500 MG TABLET PO (19:42)
[2018-04-25 21:21] LABS: BEDSIDE GLUCOSE 168 MG/DL (80-115)
[2018-04-26] MEDS: IPRATROPIUM 0.5MG/ALBUTEROL 2.5MG INH SOL UD 3ML (DUONEB)(J7620) NEB ×2 (02:00→07:50)
[2018-04-26] MEDS: ACETAMINOPHEN TAB 650MG DOSE (2X325MG) PO (04:10)
[2018-04-26] MEDS: SLF 3 ML SYR IV ×2 (06:00→14:25)
[2018-04-26] MEDS: HEPARIN SOD (PORCINE) 5000 UNITS/ML VIAL SC ×2 (06:24→14:25)
[2018-04-26 06:25] LABS: BASO % 0.6 % (0.0-1.0); EOS # 0.1 10^3/uL (0.0-0.50); EOS % 0.9 % (0.0-3.0); HEMATOCRIT 31.4 % (42.0-52.0); HEMOGLOBIN 10.3 g/dl (13.5-17.5); IMMATURE GRANULOCYTE % 1.5 % (0-3.0); LYMPH # 0.6 10^3/uL (1.5-4.5); LYMPH % 10.4 % (24.0-44.0); MEAN CORPUSCULAR HEMOGLOBIN 27.7 pg (27.0-33.0); MEAN CORPUSCULAR HGB CONC 32.8 g/dl (32.0-36.5); MEAN CORPUSCULAR VOLUME 84.4 fl (80.0-96.0); MONO # 0.5 10^3/uL (0.0-0.8); MONO % 9.6 % (0.0-5.0); NEUTROPHILS # 4.1 10^3/uL (1.8-7.7); PLATELET COUNT, AUTOMATED 248 10^3/uL (150-450); RED BLOOD COUNT 3.72 10^6/uL (4.30-6.10); RED CELL DISTRIBUTION WIDTH 15.8 % (11.5-14.5); WHITE BLOOD COUNT 5.3 10^3/uL (4.0-10.0)
[2018-04-26 06:56] LABS: ANION GAP 8 MEQ/L (8-16); BLOOD UREA NITROGEN 10 MG/DL (7-18); CALCIUM LEVEL 8.8 MG/DL (8.8-10.2); CARBON DIOXIDE LEVEL 27 MEQ/L (21-32); CHLORIDE LEVEL 101 MEQ/L (98-107); CREATININE FOR GFR 0.58 MG/DL (0.70-1.30); GLOMERULAR FILTRATION RATE > 60.0 (>49); GLUCOSE, FASTING 66 MG/DL (70-100); MAGNESIUM LEVEL 2.1 MG/DL (1.8-2.4); POTASSIUM SERUM 3.6 MEQ/L (3.5-5.1); SODIUM LEVEL 136 MEQ/L (136-145)
[2018-04-26] MEDS: HumaLOG INSULIN (NovoLOG) PER UNIT SC ×2 (08:09→12:35)
[2018-04-26] MEDS: LEVEMIR (INSULIN DETEMIR) 1 UNITS/0.01ML SC (10:04)
[2018-04-26] MEDS: guaiFENesin ER 600 MG TAB PO (10:04)
[2018-04-26] MEDS: ATORVASTATIN 20 MG TAB PO (10:04)
[2018-04-26] MEDS: MAGNESIUM OXIDE 400 MG TAB (MAG-OX) PO (10:05)
[2018-04-26] MEDS: ATENOLOL 50 MG TAB PO (10:05)
[2018-04-26] MEDS: FLUoxetine 20 MG CAP PO (10:05)
[2018-04-27 02:26] LABS: BEDSIDE GLUCOSE 151 MG/DL (80-115)
== END 2018-04-26 14:20 | disposition home or self-care (01) | DRG 194 ==
LOC: M PCU 04-21 01:00 → M ED 18:20 → M PCU 04-23 13:43 → M ED INP 23:32 → M PCU 04-23 13:48 → M MS5PR 04-23 13:50
PROVIDERS: Internal Medicine
DX: J18.9 Pneumonia, unspecified organism (principal); C83.33 Diffuse large B-cell lymphoma, intra-abdominal lymph nodes; E87.1 Hypo-osmolality and hyponatremia; I13.10 Hypertensive heart and chronic kidney disease without heart failure, with stage 1 through stage 4 chronic kidney disease, or unspecified chronic kidney disease; E11.65 Type 2 diabetes mellitus with hyperglycemia; E78.5 Hyperlipidemia, unspecified; R29.6 Repeated falls; N18.3 Chronic kidney disease, stage 3 (moderate); E11.22 Type 2 diabetes mellitus with diabetic chronic kidney disease; Z79.4 Long term (current) use of insulin; Z79.899 Other long term (current) drug therapy

== ENCOUNTER 2018-05-12 10:50 | Emergency (ER) | payer MEDICARE ==
[2018-05-12 11:05] LABS: BEDSIDE GLUCOSE 165 MG/DL (80-115)
[2018-05-12 11:29] LABS: VENOUS HCO3 27.6 MEQ/L (23.0-27.0); VENOUS O2 SATURATION 87.6 % (60.0-80.0); VENOUS PARTIAL PRESSURE CO2 42.4 mmHg (38.0-50.0); VENOUS PARTIAL PRESSURE O2 53.5 mmHg (30.0-50.0); VENOUS PH 7.431 UNITS (7.330-7.430); VENOUS STANDARD HCO3 26.9 MEQ/L; VENOUS TOTAL CO2 28.9 MEQ/L (24.0-28.0)
[2018-05-12 11:51] LABS: ESTIMATED AVERAGE GLUCOSE 292 MG/DL (60-110); HEMOGLOBIN A1c 11.8 %
[2018-05-12 11:54] LABS: ANION GAP 8 MEQ/L (8-16); BLOOD UREA NITROGEN 13 MG/DL (7-18); CALCIUM LEVEL 8.3 MG/DL (8.8-10.2); CARBON DIOXIDE LEVEL 27 MEQ/L (21-32); CHLORIDE LEVEL 102 MEQ/L (98-107); CREATININE FOR GFR 0.78 MG/DL (0.70-1.30); GLOMERULAR FILTRATION RATE > 60.0 (>49); GLUCOSE, FASTING 166 MG/DL (70-100); POTASSIUM SERUM 4.2 MEQ/L (3.5-5.1); SODIUM LEVEL 137 MEQ/L (136-145)
== END 2018-05-12 12:07 | disposition home or self-care (01) ==
LOC: M ED 10:50
DX: E11.65 Type 2 diabetes mellitus with hyperglycemia (principal); I10 Essential (primary) hypertension
CPT/HCPCS: 82803

== ENCOUNTER 2018-05-14 09:06 | Emergency (ER) | payer MEDICARE | END 2018-05-14 10:15 | disposition home or self-care (01) | LOC: M ED 09:06 | DX: S80.01XA Contusion of right knee, initial encounter (principal); W19.XXXA Unspecified fall, initial encounter; Y92.098 Other place in other non-institutional residence as the place of occurrence of the external cause; M17.11 Unilateral primary osteoarthritis, right knee; I10 Essential (primary) hypertension; E11.9 Type 2 diabetes mellitus without complications; E78.00 Pure hypercholesterolemia, unspecified; N17.9 Acute kidney failure, unspecified; N40.0 Benign prostatic hyperplasia without lower urinary tract symptoms; F32.9 Major depressive disorder, single episode, unspecified; Z79.899 Other long term (current) drug therapy; Z79.4 Long term (current) use of insulin | CPT/HCPCS: 73564 ==

== ENCOUNTER 2018-07-21 17:04 | Emergency (ER) | payer MEDICARE ==
[~2018-07-21] VITALS: Ht 167.6 cm; Wt 87.3 kg
[~2018-07-21 17:04] MED LIST changes: +ACET-683 PO; +AMLO5TAB6; +AMLO5TAB6 PO; +ATOR40TA75; +ATOR40TA75 PO; +BACT800T5 PO; +BENZ-18 PO; +DOXA1TAB41; -DOXA1TAB71 PO; +DOXA2TAB3 PO; +FLUO1TAB3 PO; +FLUO20CA19; +FLUO20CA19 PO; +FLUT11IN; +HYDR25TAB; +HYDR25TAB PO; +IPRA0.00 NEB; +LEVA1TAB2 PO; +LISI40TA; +LISI40TA PO; +MAG400TA PO; +MELO15TA28; +MELO15TA28 PO; +MUCI600T37 PO; +ONDA4TAB6 PO; +ONDA8TAB7 PO; +PRED50TA PO; +PROC10TA4 PO
[2018-07-21] MEDS ORDERED: HYDR25TAB OR (17:30)
[2018-07-21] MEDS ORDERED: LISI40TA OR (17:30)
[2018-07-21] MEDS ORDERED: NS 500 ML IV ONE ×2 (17:45→18:30)
[2018-07-21 18:00] LABS: BASO % 0.4 % (0.0-1.0); EOS % 0.4 % (0.0-3.0); HEMATOCRIT 29.9 % (42.0-52.0); HEMOGLOBIN 10.1 g/dl (13.5-17.5); LYMPH # 0.5 10^3/uL (1.5-4.5); LYMPH % 8.3 % (24.0-44.0); MEAN CORPUSCULAR HEMOGLOBIN 28.4 pg (27.0-33.0); MEAN CORPUSCULAR HGB CONC 33.8 g/dl (32.0-36.5); MONO # 0.7 10^3/uL (0.0-0.8); MONO % 12.1 % (0.0-5.0); NEUTROPHILS # 4.5 10^3/uL (1.8-7.7); NEUTROPHILS % 78.3 % (36.0-66.0); PLATELET COUNT, AUTOMATED 219 10^3/uL (150-450); RED BLOOD COUNT 3.56 10^6/uL (4.30-6.10); WHITE BLOOD COUNT 5.7 10^3/uL (4.0-10.0)
[2018-07-21] MEDS ORDERED: DERMABOND TOPICAL SKIN ADHESIVE TOP ONE (18:30)
[2018-07-21 18:40] LABS: ALBUMIN 3.4 GM/DL (3.2-5.2); ALT/SGPT 15 U/L (12-78); BILIRUBIN,DIRECT < 0.1 MG/DL (0.0-0.2); BILIRUBIN,TOTAL 0.4 MG/DL (0.2-1.0); BLOOD UREA NITROGEN 24 MG/DL (7-18); CALCIUM LEVEL 8.8 MG/DL (8.8-10.2); CARBON DIOXIDE LEVEL 26 MEQ/L (21-32); CHLORIDE LEVEL 94 MEQ/L (98-107); CREATININE FOR GFR 1.39 MG/DL (0.70-1.30); GLOMERULAR FILTRATION RATE 54.1 (>49); GLUCOSE, FASTING 412 MG/DL (70-100); LIPASE 74 U/L (73-393); POTASSIUM SERUM 4.2 MEQ/L (3.5-5.1); SODIUM LEVEL 132 MEQ/L (136-145); TOTAL PROTEIN 6.1 GM/DL (6.4-8.2)
--- NOTE | 2018-07-21 18:42 | REP ---
Clinical: Trauma . Comparison: 04/25/2018 . Technique: PA and lateral. Findings: The mediastinum and cardiac silhouette are normal. [id number] with tip in the SVC. The lung beebe are clear and without acute consolidation, effusion, or pneumothorax. The skeletal structures demonstrate degenerative changes without obvious acute injury. Impression: 1. No acute cardiopulmonary process. Electronically Signed by Anish Byrne MD 07/21/2018 06:33 P
--- NOTE | 2018-07-21 18:43 | REPVR ---
EXAM: CT Head Without Contrast EXAM DATE/TIME: 07/21/2018 5:54 PM CLINICAL HISTORY: 67 years old, male; Injury or trauma; Fall; Initial encounter; Concussion / head injury; Consciousness not specified; Additional info: [employer] TECHNIQUE: Axial computed tomography images of the head/brain without contrast. All CT scans at this facility use at least one of these dose optimization techniques: automated exposure control; mA and/or kV adjustment per patient size (includes targeted exams where dose is matched to clinical indication); or iterative reconstruction. COMPARISON: CT Head without contrast 04/20/2018 6:41 PM FINDINGS: Brain: There is low density in the inferior left frontal lobe and prominent atrophy consistent with an area of old stroke. This area appears unchanged since April. There are patchy areas of low density in the periventricular white matter consistent with chronic ischemic changes. Ventricles: Normal appearing ventricles. Bones/joints: There is no evidence of fracture. Sinuses: Clear paranasal sinuses. Mastoid air cells: Clear mastoid air cells. Soft tissues: Unremarkable. Vasculature: There is calcification of carotid siphon bilaterally consistent with athero-sclerotic changes. IMPRESSION: 1. Area of old stroke inferior left frontal lobe. 2. Chronic ischemic changes. Electronically signed by: Mathew Webster On 07/21/2018 18:42:57 PM
[2018-07-21] MEDS ORDERED: HumuLIN R (REGULAR) INSULIN (NovoLIN R) **100U/ML** PER UNIT IV ONE (19:00)
[2018-07-21 19:15] VITALS: BP 107/73
--- NOTE | 2018-07-22 08:41 | ECGEPIP ---
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
== END 2018-07-21 19:55 | disposition home or self-care (01) ==
LOC: EDBD 17:04 → M ED 17:04
DX: I95.1 Orthostatic hypotension (principal); S01.111A Laceration without foreign body of right eyelid and periocular area, initial encounter; E11.65 Type 2 diabetes mellitus with hyperglycemia; I44.0 Atrioventricular block, first degree; W19.XXXA Unspecified fall, initial encounter; Y92.9 Unspecified place or not applicable; Y93.89 Activity, other specified; Y99.9 Unspecified external cause status; I10 Essential (primary) hypertension; N18.3 Chronic kidney disease, stage 3 (moderate); Z85.72 Personal history of non-Hodgkin lymphomas; Z86.73 Personal history of transient ischemic attack (TIA), and cerebral infarction without residual deficits; I67.82 Cerebral ischemia; Z79.4 Long term (current) use of insulin; Z79.899 Other long term (current) drug therapy

== ENCOUNTER 2018-08-08 09:19 | Emergency (ER) | payer MEDICARE ==
[~2018-08-08] VITALS: Ht 167.6 cm; Wt 78.2 kg
[~2018-08-08 09:19] MED LIST changes: +HYDR25TAB OR; +LISI40TA OR
[2018-08-08] MEDS ORDERED: LIDOCAINE 1% MDV 20ML VIAL As Ordered ONE (09:56)
[2018-08-08] MEDS ORDERED: LIDOCAINE 1% MDV 20ML VIAL SC ONE (10:00)
[2018-08-08] MEDS ORDERED: ADACEL/BOOSTRIX VACCINE (DIPHTH/PERTUSS/ACELL/TETANUS)0.5ML SYR (90715) IM ONE (10:00)
--- NOTE | 2018-08-08 10:38 | REP ---
CT Head without contrast HISTORY: Trauma COMPARISON: 07/21/2018 An area of decreased attenuation is present in the left frontal lobe. There is dilatation of the overlying cortical sulci. This represents encephalomalacia. Areas of decreased attenuation are present in the basal ganglia and left thalamus. These represent old lacunar infarctions. Areas of decreased attenuation are present in the periventricular and subcortical white matter. This represents small-vessel ischemic disease. There is no intraparenchymal hemorrhage, acute infarct, mass or midline shift. The ventricular system is and cortical sulci as well as subarachnoid space in the posterior fossa are dilated consistent with mild volume loss. There is no extra cerebral collection. There is no fracture. The visualized sinuses are clear. Soft tissue swelling is present over the left orbit and frontal bone. IMPRESSION: 1. Left frontal lobe encephalomalacia. 2. Old bilateral basal ganglia and left thalamic lacunar infarctions. 3. Small vessel ischemic disease. 4. Mild volume loss. Electronically Signed by Livan Nash MD 08/08/2018 10:30 A
--- NOTE | 2018-08-08 10:45 | REP ---
CT cervical spine without contrast HISTORY: Trauma COMPARISON: None There is no acute fracture or subluxation. A disc bulge and small central disc protrusion are present at the C3-4 level. Disc bulges with associated osteophyte formation are present at the C4-5 through C6-7 levels. There is minimal narrowing of the spinal canal. Uncinate process and/or facet hypertrophy are present at the C2-3 through C7-T1 levels. These findings produce minimal to moderate narrowing of the neural foramina. The cervical intervertebral discs are decreased in height consistent with disc degeneration. Anterior osteophytes are present throughout the cervical spine. IMPRESSION: 1. There is no acute fracture or subluxation. 2. There is cervical spondylosis at the C2-3 through C7-T1 levels. Electronically Signed by Livan Nash MD 08/08/2018 10:37 A
[2018-08-08 11:12] LABS: BASO % 0.4 % (0.0-1.0); EOS # 0.1 10^3/uL (0.0-0.50); EOS % 3.5 % (0.0-3.0); HEMATOCRIT 31.8 % (42.0-52.0); HEMOGLOBIN 10.4 g/dl (13.5-17.5); LYMPH # 0.4 10^3/uL (1.5-4.5); LYMPH % 16.1 % (24.0-44.0); MEAN CORPUSCULAR HGB CONC 32.7 g/dl (32.0-36.5); MEAN CORPUSCULAR VOLUME 85.5 fl (80.0-96.0); MONO # 0.4 10^3/uL (0.0-0.8); MONO % 14.9 % (0.0-5.0); NEUTROPHILS # 1.7 10^3/uL (1.8-7.7); NEUTROPHILS % 64.7 % (36.0-66.0); PLATELET COUNT, AUTOMATED 196 10^3/uL (150-450); RED BLOOD COUNT 3.72 10^6/uL (4.30-6.10); WHITE BLOOD COUNT 2.6 10^3/uL (4.0-10.0)
[2018-08-08 11:57] LABS: ALBUMIN 3.2 GM/DL (3.2-5.2); ALT/SGPT 15 U/L (12-78); BILIRUBIN,DIRECT < 0.1 MG/DL (0.0-0.2); BILIRUBIN,TOTAL 0.3 MG/DL (0.2-1.0); BLOOD UREA NITROGEN 16 MG/DL (7-18); CALCIUM LEVEL 8.6 MG/DL (8.8-10.2); CARBON DIOXIDE LEVEL 32 MEQ/L (21-32); CHLORIDE LEVEL 99 MEQ/L (98-107); CK-MB VALUE MASS < 1.0 NG/ML (<3.6); CPK CREATINE PHOSPHOKINASE 56 U/L (39-308); CREATININE FOR GFR 1.33 MG/DL (0.70-1.30); FREE T4 0.95 NG/DL (0.76-1.46); GLOMERULAR FILTRATION RATE 56.9 (>49); GLUCOSE, FASTING 307 MG/DL (70-100); MB/CK RELATIVE INDEX 1.79 (< OR =4); POTASSIUM SERUM 4.1 MEQ/L (3.5-5.1); SODIUM LEVEL 137 MEQ/L (136-145); TOTAL PROTEIN 6.5 GM/DL (6.4-8.2); TROPONIN I < 0.02 NG/ML (< 0.10)
[2018-08-08 12:58] VITALS: BP 93/56
--- NOTE | 2018-08-08 18:07 | ECGEPIP ---
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
--- NOTE | 2018-08-08 18:08 | ECGEPIP ---
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
[2018-08-14] MEDS ORDERED: ONDA8TAB7 PO (08:04)
== END 2018-08-08 13:17 | disposition home or self-care (01) ==
LOC: M ED 09:19
DX: S09.90XA Unspecified injury of head, initial encounter (principal); S01.91XA Laceration without foreign body of unspecified part of head, initial encounter; W22.8XXA Striking against or struck by other objects, initial encounter; Y92.099 Unspecified place in other non-institutional residence as the place of occurrence of the external cause; Y93.01 Activity, walking, marching and hiking; Y99.9 Unspecified external cause status; I44.0 Atrioventricular block, first degree; E11.9 Type 2 diabetes mellitus without complications; I10 Essential (primary) hypertension; N40.0 Benign prostatic hyperplasia without lower urinary tract symptoms; N18.9 Chronic kidney disease, unspecified; C85.12 Unspecified B-cell lymphoma, intrathoracic lymph nodes; F32.9 Major depressive disorder, single episode, unspecified; M47.812 Spondylosis without myelopathy or radiculopathy, cervical region; M47.813 Spondylosis without myelopathy or radiculopathy, cervicothoracic region; I69.314 Frontal lobe and executive function deficit following cerebral infarction; Z86.73 Personal history of transient ischemic attack (TIA), and cerebral infarction without residual deficits; Z79.4 Long term (current) use of insulin; Z79.899 Other long term (current) drug therapy

== ENCOUNTER 2018-09-01 11:03 | Emergency (ER) | payer MEDICARE ==
[~2018-09-01] VITALS: Ht 167.6 cm; Wt 86.4 kg
[2018-09-01 11:24] VITALS: BP 112/65
== END 2018-09-01 12:10 | disposition home or self-care (01) ==
LOC: M ED 11:03 → EDBD 11:03 → M ED 12:10
DX: S01.01XA Laceration without foreign body of scalp, initial encounter (principal); W18.39XA Other fall on same level, initial encounter; Y92.018 Other place in single-family (private) house as the place of occurrence of the external cause; E11.9 Type 2 diabetes mellitus without complications; I12.9 Hypertensive chronic kidney disease with stage 1 through stage 4 chronic kidney disease, or unspecified chronic kidney disease; N18.3 Chronic kidney disease, stage 3 (moderate); E78.5 Hyperlipidemia, unspecified; C83.30 Diffuse large B-cell lymphoma, unspecified site; Z79.899 Other long term (current) drug therapy; Z79.4 Long term (current) use of insulin

== ENCOUNTER → 2018-09-24 | Outpatient (CLI) | payer MEDICARE ==
[~2018-09-24] MED LIST changes: +AMOX875T PO; +LISI40TA52 PO; -LISI40TAB PO
--- NOTE | 2018-09-24 18:34 | REP ---
PET/CT: History: Restaging lymphoma. Diffuse large B-cell non-Hodgkin's lymphoma. Status post chemotherapy. Comparisons: Comparison PET-CT study February 19, 2018. TECHNIQUE: 57 minutes following the intravenous injection of a 10.2 mCi dose of F-18 FDG, three-dimensional PET scintigraphy is acquired from the skull base to the proximal thighs. Triplanar noncontrast CT scanning is acquired through the same anatomic range for attenuation correction, and image registration with scan parameters optimized to minimize radiation exposure to the patient. PET scintigraphy and CT datasets were fused and displayed on a workstation with multiplanar and projection display capability. PET/CT Findings: The previously noted mesenteric mike mass has decreased dramatically in size from a maximum transverse diameter of 5.2 cm on February 19, 2018 to and a transverse diameter of 2.2 cm today. It is no longer hypermetabolic. Maximum standard uptake value here is only 1.36. There is no other abnormal hypermetabolic mike uptake in the abdomen or pelvis. No abnormal hepatic or splenic uptake is seen. There is no abnormal mike uptake in the mediastinum. Head and neck soft tissues are unremarkable. No intrathoracic hypermetabolic uptake is seen in the pulmonary parenchyma. The left-sided Sbwefn-Y-Xmhv catheter. No abnormal skeletal uptake is seen. Impression: No abnormal hypermetabolic uptake. Significantly improved small bowel mesenteric mike focus as above. No new area of abnormal uptake. Electronically Signed by Vincenzo Kenney MD 09/24/2018 08:38 P
== END ==
LOC: M PLARAD 08:21
PROVIDERS: ATTEND Internal Medicine Hematology & Oncology
DX: C83.38 Diffuse large B-cell lymphoma, lymph nodes of multiple sites (principal)
CPT/HCPCS: 78815; A9552

== ENCOUNTER → 2018-10-15 | Outpatient (RCR) | payer MEDICARE | LOC: M PT 10-03 08:26 | PROVIDERS: ATTEND Internal Medicine Hematology & Oncology | DX: C85.90 Non-Hodgkin lymphoma, unspecified, unspecified site (principal); R53.83 Other fatigue ==

== ENCOUNTER 2018-10-31 07:51 | Outpatient (RCR) | payer MEDICARE | END 2018-11-15 | LOC: M PT 07:51 | PROVIDERS: ATTEND Internal Medicine Hematology & Oncology | DX: C85.90 Non-Hodgkin lymphoma, unspecified, unspecified site (principal) ==

== ENCOUNTER 2018-11-30 09:08 | Emergency (ER) | payer MEDICARE ==
[~2018-11-30] VITALS: Ht 167.6 cm; Wt 86.4 kg
[2018-11-30] MEDS ORDERED: POTA10TA14 (09:16)
[2018-11-30] MEDS ORDERED: MAGN400T2 (09:16)
[2018-11-30] MEDS ORDERED: DERMABOND TOPICAL SKIN ADHESIVE TOP ONE (09:45)
[2018-11-30 10:30] VITALS: BP 120/68
--- NOTE | 2018-11-30 10:41 | REP ---
NASAL BONES: Four views of the nasal bones are performed. There may be a nondisplaced fracture at the tip of the nasal bones. The maxillary spines appears intact. No other abnormalities are seen. IMPRESSION: Possible nondisplaced fracture at the tip of the nasal bones. Electronically Signed by Randall Hardy MD 11/30/2018 07:24 P
== END 2018-11-30 10:49 | disposition home or self-care (01) ==
LOC: M ED 09:08
DX: S02.2XXA Fracture of nasal bones, initial encounter for closed fracture (principal); S01.81XA Laceration without foreign body of other part of head, initial encounter; W22.8XXA Striking against or struck by other objects, initial encounter; Y92.018 Other place in single-family (private) house as the place of occurrence of the external cause; Y93.K1 Activity, walking an animal; I10 Essential (primary) hypertension; G93.41 Metabolic encephalopathy; C85.10 Unspecified B-cell lymphoma, unspecified site; Z79.899 Other long term (current) drug therapy

== ENCOUNTER → 2019-01-16 | Outpatient (CLI) | payer MEDICARE ==
[~2019-01-16] MED LIST changes: +MAGN400T2; +POTA10TA14
[2019-01-16 09:09] LABS: HEMOGLOBIN 11.9 g/dl (13.5-17.5); MEAN CORPUSCULAR HEMOGLOBIN 26.5 pg (27.0-33.0); MEAN CORPUSCULAR HGB CONC 32.2 g/dl (32.0-36.5); MEAN CORPUSCULAR VOLUME 82.4 fl (80.0-96.0); PLATELET COUNT, AUTOMATED 272 10^3/uL (150-450); RED BLOOD COUNT 4.49 10^6/uL (4.30-6.10)
--- NOTE | 2019-01-16 09:10 | REP ---
Clinical: Hypertension . Comparison: 04/25/2018 . Technique: PA and lateral. Findings: Yopjlc-B-Gdwl with tip in the SVC. The mediastinum and cardiac silhouette are normal. The lung beebe are clear and without acute consolidation, effusion, or pneumothorax. The skeletal structures are intact and normal. Impression: 1. No acute cardiopulmonary process. Electronically Signed by Anish Byrne MD 01/16/2019 09:01 A
[2019-01-16 09:37] LABS: ALBUMIN 3.6 GM/DL (3.2-5.2); BILIRUBIN,TOTAL 0.4 MG/DL (0.2-1.0); CALCIUM LEVEL 8.8 MG/DL (8.8-10.2); CHOLESTEROL RISK RATIO 6.666 (<5); CREATININE FOR GFR 1.56 MG/DL (0.70-1.30); GLOMERULAR FILTRATION RATE 47.2 (>49); POTASSIUM SERUM 4.1 MEQ/L (3.5-5.1); PROSTATIC SPECIFIC AG MONITOR 2.23 NG/ML (< 4.00); THYROID STIMULATING HORMONE 0.941 uIU/ML (0.358-3.740); TOTAL PROTEIN 6.6 GM/DL (6.4-8.2)
--- NOTE | 2019-01-16 10:02 | ECGEPIP ---
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
== END ==
LOC: M LAB 08:28
PROVIDERS: ATTEND Family Medicine
DX: I10 Essential (primary) hypertension (principal); Z79.899 Other long term (current) drug therapy

== ENCOUNTER 2019-03-24 17:38 | Emergency (ER) | payer OTHER, MEDICARE ==
[~2019-03-24] VITALS: Ht 182.9 cm; Wt 87.7 kg
[2019-03-24 18:01] VITALS: BP 168/96
== END 2019-03-24 18:07 | disposition home or self-care (01) ==
LOC: M ED 17:38
DX: S00.81XA Abrasion of other part of head, initial encounter (principal); V49.50XA Passenger injured in collision with unspecified motor vehicles in traffic accident, initial encounter; Y92.410 Unspecified street and highway as the place of occurrence of the external cause; I10 Essential (primary) hypertension; Z79.899 Other long term (current) drug therapy

== ENCOUNTER 2019-05-07 22:59 | Inpatient (IN) | payer MEDICARE ==
[~2019-05-07] VITALS: Ht 167.6 cm; Wt 84.0 kg
[~2019-05-07 22:59] MED LIST changes: -HYDR25TAB OR; -LISI40TA OR
[2019-05-07] MEDS ORDERED: NS 500 ML IV ONE (23:30)
[2019-05-08] VITALS (15 sets, daily range): BP systolic 83–119; BP diastolic 6–67
[2019-05-08] MEDS ORDERED: HumuLIN R (REGULAR) INSULIN (NovoLIN R) **100U/ML** PER UNIT IV ONE
[2019-05-08 00:16] LABS: BASO % 0.2 % (0.0-1.0); EOS % 0.2 % (0.0-3.0); HEMATOCRIT 38.7 % (42.0-52.0); HEMOGLOBIN 13.2 g/dl (13.5-17.5); LYMPH # 1.1 10^3/uL (1.5-5.0); LYMPH % 12.9 % (24.0-44.0); MEAN CORPUSCULAR HEMOGLOBIN 27.4 pg (27.0-33.0); MEAN CORPUSCULAR HGB CONC 34.1 g/dl (32.0-36.5); MEAN CORPUSCULAR VOLUME 80.3 fl (80.0-96.0); MONO # 0.7 10^3/uL (0.0-0.8); MONO % 8.7 % (0.0-5.0); NEUTROPHILS # 6.3 10^3/uL (1.5-8.5); NEUTROPHILS % 77.3 % (36.0-66.0); PLATELET COUNT, AUTOMATED 239 10^3/uL (150-450); RED BLOOD COUNT 4.82 10^6/uL (4.30-6.10); WHITE BLOOD COUNT 8.1 10^3/uL (4.0-10.0)
[2019-05-08 00:49] LABS: ACETONE/KETONE 9.17 MG/DL (<2.81); ALBUMIN 3.6 GM/DL (3.2-5.2); ALT/SGPT 45 U/L (12-78); BILIRUBIN,DIRECT < 0.1 MG/DL (0.0-0.2); BILIRUBIN,TOTAL 0.5 MG/DL (0.2-1.0); BLOOD UREA NITROGEN 45 MG/DL (7-18); CALCIUM LEVEL 9.5 MG/DL (8.8-10.2); CARBON DIOXIDE LEVEL 20 MEQ/L (21-32); CHLORIDE LEVEL 85 MEQ/L (98-107); GLOMERULAR FILTRATION RATE 35.4 (>49); GLUCOSE, FASTING 650 MG/DL (70-100); LIPASE 156 U/L (73-393); POTASSIUM SERUM 4.5 MEQ/L (3.5-5.1); SODIUM LEVEL 123 MEQ/L (136-145); TOTAL PROTEIN 6.9 GM/DL (6.4-8.2)
[2019-05-08] MEDS ORDERED: INSULIN HUMAN REGULAR 100 UNITS in NS 99 ML IV SCH ×2 (01:00→05:00)
[2019-05-08] MEDS ORDERED: INSULIN IV RATE CHANGE DOCUMENTATION ML/HR XX SCH (01:00)
[2019-05-08] MEDS ORDERED: POTA10TA16 PO (01:52)
[2019-05-08] MEDS ORDERED: MAGN400T3 PO (01:52)
[2019-05-08] MEDS ORDERED: PRED20TA PO (01:52)
[2019-05-08] MEDS ORDERED: INSUDET SC (01:52)
[2019-05-08] MEDS ORDERED: ONDA4TAB5 PO (01:52)
[2019-05-08] MEDS ORDERED: OLANZapine INTRAMUSCULAR 10 MG VIAL (S0166) IM ONE (02:00)
[2019-05-08] MEDS ORDERED: NS 1,000 ML IV SCH (03:38)
--- NOTE | 2019-05-08 04:09 | HPEPDOC ---
General Date of Admission May 08, 2019 at 03:38 Date of Service: May 08, 2019 Chief Complaint The patient is a 68-year-old male admitted with a reason for visit of DKA. Source: Patient, Family Exam Limitations: Clinical conditions Timing/Duration: 24 hours Severity: Severe Associated Symptoms: Increased agitation History of Present Illness Patient is 68 years old male with past medical history of non-Hodgkin lymphoma, type 2 diabetes, hyperlipidemia, hypertension presented hospital with polyuria, polydipsia and altered mental status. His girlfriend stated that he developed altered mental status for past few days. She denied that patient was noncompliant to his insulin regimen. When I saw patient he was severely agitated, refused to provide any history, he wanted to leave the hospital AGAINST MEDICAL ADVICE. Due to altered mental status and suicidal ideation, patient stated that he didn't want to live, pt forced to stay in the hospital. In emergency room patient was found to have hyperglycemia of 650, anion gap of 18, with elevated beta hydroxybutyrate Home Medications Scheduled Atenolol (Atenolol) 50 Mg Tab, 50 MG PO DAILY, (Reported) Atorvastatin Calcium (Atorvastatin Calcium) 40 Mg Tab, 40 MG PO DAILY, (Reported) Doxazosin Mesylate (Doxazosin) 2 Mg Tab, 2 MG PO DAILY, (Reported) Fluoxetine Hcl (Fluoxetine HCl) 20 Mg Cap, 20 MG PO DAILY, (Reported) Hydrochlorothiazide (Hydrochlorothiazide) 25 Mg Tab, 25 MG PO DAILY, (Reported) Insulin Detemir (Levemir) 100 Unit/1 Ml Vial, 80 UNITS SC BID, (Reported) Insulin Human Lispro (Humalog) 1 Units/0.01 Ml Inj, 1 DOSE SC AC, (Reported) PER SLIDING SCALE Lisinopril (Lisinopril) 40 Mg Tab, 40 MG PO DAILY, (Reported) Magnesium Oxide (Magnesium Oxide) 400 Mg Tablet, 400 MG PO BID, (Reported) Potassium Chloride (Potassium Chloride) 10 Meq Tab.er.prt, 10 MEQ PO DAILY, (Reported) Prednisone (Prednisone) 20 Mg Tablet, 20 MG PO DAILY, (Reported) FILLED 05/05/19 FOR 5 DAYS Scheduled PRN Ondansetron HCl (Ondansetron HCl) 4 Mg Tablet, 4 MG PO TID PRN for NAUSEA, (Reported) Allergies Coded Allergies: No Known Allergies (Unverified , 05/07/19) Past Medical History Medical History Hyperlipidemia, hypertension, type 2 diabetes, non-Hodgkin's lymphoma in remission Family History Patient refused to give family history Social History * Smoker: Denies Alcohol: Denies Drugs: denies A-FIB/CHADSVASC A-FIB History Current/History of A-Fib/PAF?: No Current PO Anticoag Therapy: No Review of Systems Constitutional: Reports: Fatigue; Denies: Chills, Fever Eyes: Denies: Pain, Vision change ENT: Denies: Head Aches, Ear Pain Skin: Denies: Rash, Lesions Pulmonary: Denies: Dyspnea, Cough Cardiovascular: Denies: Chest Pain, Palpitations Gastrointestinal: Reports: Nausea; Denies: Diarrhea, Constipation Genitourinary: Reports: Dysuria Hematologic: Denies: Bruising Endocrine: Reports: Polydipsia, Polyuria; Denies: Polyphagia Musculoskeletal: Denies: Neck Pain Neurological: Denies: Weakness, Numbness Psych: Reports: Anger, Other Psych (suicidal ideation); Denies: Mood Normal Physical Examination General Exam: Positive: Alert, Severe Distress; Negative: Cooperative Eye Exam: Positive: PERRLA ENT Exam: Positive: Atraumatic Neck Exam: Positive: Supple; Negative: JVD Chest Exam: Positive: Clear to auscultation Heart Exam: Positive: Rate Normal Telemetry: Positive: No significant arrhythmia Abdomen Exam: Positive: Normal bowel sounds Extremity Exam: Negative: Clubbing, Cyanosis Skin Exam: Negative: Nl turgor and temperature Neuro Exam: Positive: Normal Gait, Strength at 5/5 X4 ext, Cranial Nerves 3-12 NL Psych Exam: Positive: Other (agitated, anger) Vital Signs Vital Signs Date Time Temp Pulse Resp B/P (MAP) Pulse Ox O2 Delivery O2 Flow Rate FiO2 05/07/19 23:17 05/07/19 22:59 96.1 77 20 100 Laboratory Data Labs 24H Laboratory Tests 2 05/07/19 23:50: Immature Granulocyte % (Auto) 0.7, Neutrophils (%) (Auto) 77.3H, Lymphocytes (%) (Auto) 12.9L, Monocytes (%) (Auto) 8.7H, Eosinophils (%) (Auto) 0.2, Basophils (%) (Auto) 0.2, Neutrophils # (Auto) 6.3, Lymphocytes # (Auto) 1.1L, Monocytes # (Auto) 0.7, Eosinophils # (Auto) 0.0, Basophils # (Auto) 0.0, Nucleated Red Blood Cells % (auto) 0.0, Anion Gap 18H, Glomerular Filtration Rate 35.4L, Calcium Level 9.5, Total Bilirubin 0.5, Direct Bilirubin < 0.1, Aspartate Amino Transf (AST/SGOT) 20, Alanine Aminotransferase (ALT/SGPT) 45, Alkaline Phosphatase 98, Total Protein 6.9, Albumin 3.6, Albumin/Globulin Ratio 1.09, Lipase 156, B-Hydroxybutyrate 9.17H 05/08/19 01:00: Bedside Glucose (Misc Panel) 561*H CBC/BMP Laboratory Tests 05/07/19 23:50 Assessment/Plan Patient is 68 years old male with past medical history of non-Hodgkin lymphoma, type 2 diabetes, hyperlipidemia, hypertension presented hospital with polyuria, polydipsia and altered mental status. Patient was diagnosed with DKA Problems (1) DKA, type 2 Status: Acute Problem Text: Most likely secondary to noncompliance to his medication Insulin drip Blood gas We will monitor ketones in the urine BMP every 4 hours (2) Hyponatremia Status: Acute Problem Text: This is pseudohyponatremia due to hyperglycemia Corrected sodium level of 136 (3) Acute kidney injury Status: Acute Problem Text: Most likely prerenal due to dehydration Continue IV fluid (4) Metabolic encephalopathy Status: Acute Problem Text: Secondary to DKA and underlying dementia Sitter for now due to suicidal ideation Psych evaluation in the morning Plan / VTE VTE Prophylaxis Ordered?: Yes PEMA CARL DO May 08, 2019 04:09
[2019-05-08 04:16] LABS: PHOSPHORUS LEVEL 4.4 MG/DL (2.5-4.9)
[2019-05-08 05:22] LABS: ABG BASE EXCESS -0.9 (-2.0-2.0); ABG HCO3 23.4 MEQ/L (22.0-26.0); ABG O2 SATURATION 89.7 % (95.0-99.0); ABG PARTIAL PRESSURE CO2 37.8 mmHg (35.0-45.0); ABG PARTIAL PRESSURE O2 62.1 mmHg (75.0-100.0); ABG STANDARD HCO3 23.6 MEQ/L (22.0-26.0); ABG TOTAL CO2 24.6 MEQ/L (23.0-31.0)
[2019-05-08] MEDS: INSULIN IV RATE CHANGE DOCUMENTATION ML/HR XX SCH ×5 (05:22→13:22)
[2019-05-08 06:35] LABS: BLOOD UREA NITROGEN 48 MG/DL (7-18); CALCIUM LEVEL 9.3 MG/DL (8.8-10.2); CARBON DIOXIDE LEVEL 26 MEQ/L (21-32); CHLORIDE LEVEL 91 MEQ/L (98-107); CREATININE FOR GFR 2.26 MG/DL (0.70-1.30); GLOMERULAR FILTRATION RATE 30.8 (>49); GLUCOSE, FASTING 460 MG/DL (70-100); POTASSIUM SERUM 3.4 MEQ/L (3.5-5.1); SODIUM LEVEL 130 MEQ/L (136-145)
[2019-05-08] MEDS ORDERED: POTASSIUM CHLORIDE 10 MEQ SR TABLET PO ONE (08:00)
[2019-05-08] MEDS: HEPARIN SOD (PORCINE) 5000 UNITS/ML VIAL SC SCH ×2 (08:02→20:54)
[2019-05-08 08:58] LABS: CK-MB VALUE MASS 2.2 NG/ML (<3.6); CPK CREATINE PHOSPHOKINASE 208 U/L (39-308); MB/CK RELATIVE INDEX 1.06 (< OR =4); TROPONIN I < 0.02 NG/ML (< 0.10)
[2019-05-08] MEDS ORDERED: D5W/0.45% SODIUM CHLORIDE 1,000 ML IV SCH (09:00)
[2019-05-08 09:20] LABS: HEMOGLOBIN A1c 12.4 %
[2019-05-08] MEDS ORDERED: LEVEMIR (INSULIN DETEMIR) 1 UNITS/0.01ML SC ONE (10:30)
--- NOTE | 2019-05-08 11:58 | IPNPDOC ---
Date Seen The patient was seen on 05/08/19. Progress Note SUBJECTIVE: Patient not the best historian. He complaints today. He would like to go home. Slightly drowsy during exam. Significant other at bedside and states that she was compliant with all his medications. But because of intellectual disability unsure how accurate information is. Patient denies chest pain, shortness breath, nausea, vomiting, fevers, chills OBJECTIVE PHYSICAL EXAMINATION: VITAL SIGNS: Please see below. GENERAL: Pleasant laying up in bed awake but slightly drowsy though speaking in complete sentences but in no acute distress HEENT: Moist mucous membranes no elevation in CVP CARDIOVASCULAR: S1 S2 regular no additional heart sounds appreciated. RESPIRATORY: Clear to auscultation bilaterally. ABDOMINAL: Bowel sounds present abdomen soft and nontender EXTREMITIES: No clubbing cyanosis or edema NEUROLOGICAL: Spontaneously moves all 4 extremities cranial 2 through 12 grossly intact no gross focal deficits appreciated PSYCHOLOGICAL: Appropriate LABORATORY DATA, MICROBIOLOGY: Please see below. IMAGING STUDIES: No imaging ASSESSMENT AND PLAN: This is a 68-year-old male with Hyperglycemia Hyperosmolar PROBLEMS: 1. Hyperglycemia Hyperosmolar -Transition IV fluids to D5 /NS when sugar less then 250, if the gap is above 10. -Replenish Potassium, check A1c -give levemir 15 units NOW -once gap is <10, transition diet to consistent carbohydrates, add insulin coverage at and QHS and stop insulin drip. -repeat BMP 2 hours after the gap is closed to check potassium levels. -Possible cause of the hyperglycemia can be due to recent steroid use prescribed on the And noncompliance with insulin. 2. Abnormal EKG -Denies chest pain -EKG at bedside is compared to January 2019. There are T-wave changes in V4-V5 and V6. -Unsure if this is secondary to acidosis. Will repeat EKG today after the gap is closed and the patient has tolerated a diet. -Cardiac markers 3 3. GODWIN -Secondary to dehydration -Baseline creatinine 1.2 -Continue with IV fluids -Monitor 4. Pseudohyponatremia -Secondary to hyperglycemia Corrected Hyperlipidemia -Restart atorvastatin Depression -Restart fluoxetine Hypertension -Because of a GODWIN and current hypotension -Dont restart atenolol (unsure if this for blood pressure control vs rate control no documented A. fib history or palpitations noted.) if need bp control, will restart this first with holding perimeters. -Hold lisinopril and hydrochlorothiazide UNTIL GODWIN resolves -Hold Doxazosin for now as well (unsure if this is for blood pressure control or for BPH) DVT prophylaxis: Heparin SQ DISPOSITION: Correct glucose possible discharge 48 hours. VS, I&O, 24H, [place] Vital Signs/I&O Vital Signs Date Time Temp Pulse Resp B/P (MAP) Pulse Ox O2 Delivery O2 Flow Rate FiO2 05/08/19 09:30 62 96/56 (69) 05/08/19 08:00 97.5 20 98 Room Air I&O- Last 24 Hours up to 6 AM 05/08/19 06:00 Intake Total 1092 ml Output Total 0 ml Balance 1092 ml Laboratory Data 24H LABS Laboratory Tests 2 05/07/19 23:07: Bedside Glucose (Misc Panel) > 600*H 05/07/19 23:28: Bedside Glucose (Misc Panel) > 600*H 05/07/19 23:50: Immature Granulocyte % (Auto) 0.7, Neutrophils (%) (Auto) 77.3H, Lymphocytes (%) (Auto) 12.9L, Monocytes (%) (Auto) 8.7H, Eosinophils (%) (Auto) 0.2, Basophils (%) (Auto) 0.2, Neutrophils # (Auto) 6.3, Lymphocytes # (Auto) 1.1L, Monocytes # (Auto) 0.7, Eosinophils # (Auto) 0.0, Basophils # (Auto) 0.0, Nucleated Red Blood Cells % (auto) 0.0, Anion Gap 18H, Glomerular Filtration Rate 35.4L, Calcium Level 9.5, Phosphorus Level 4.4, Total Bilirubin 0.5, Direct Bilirubin < 0.1, Aspartate Amino Transf (AST/SGOT) 20, Alanine Aminotransferase (ALT/SGPT) 45, Alkaline Phosphatase 98, Total Protein 6.9, Albumin 3.6, Albumin/Globulin Ratio 1.09, Lipase 156, B-Hydroxybutyrate 9.17H 05/08/19 01:00: Bedside Glucose (Misc Panel) 561*H 05/08/19 03:50: Bedside Glucose (Misc Panel) 562*H 05/08/19 05:04: Bedside Glucose (Misc Panel) 489H 05/08/19 05:10: Blood Gas Bicarbonate Standard 23.6, Arterial Blood pH 7.410, Arterial Blood Partial Pressure CO2 37.8, Arterial Blood Partial Pressure O2 62.1L, Arterial Blood Total CO2 24.6, Arterial Blood HCO3 23.4, Arterial Blood Base Excess -0.9, Arterial Blood Oxygen Saturation 89.7L 05/08/19 05:49: Anion Gap 13, Glomerular Filtration Rate 30.8L, Estimated Mean Plasma Glucose 309H, Hemoglobin A1c 12.4, Calcium Level 9.3, Phosphorus Level 4.5, Total Creatine Kinase 208, Creatine Kinase MB 2.2, Creatine Kinase MB Relative Index 1.06, Troponin I < 0.02 05/08/19 06:02: Bedside Glucose (Misc Panel) 414H 05/08/19 06:58: Bedside Glucose (Misc Panel) 317H 05/08/19 08:01: Bedside Glucose (Misc Panel) 229H 05/08/19 08:46: Bedside Glucose (Misc Panel) 190H 05/08/19 09:53: Bedside Glucose (Misc Panel) 175H CBC/BMP Laboratory Tests 05/07/19 23:50 05/08/19 05:49 GME ATTESTATION GME ATTESTATION My faculty preceptor for this patient encounter was physically present during the encounter and was fully available. All aspects of the patient interview, examination, medical decision making process, and medical care plan development were reviewed and approved by the faculty preceptor. The faculty preceptor is aware and concurs with the plan as stated in the body of this note and will attest to such by his/her cosignature. ATTENDING NOTE Patient was seen and examined by me this morning with the residents. Agree with the above assessment and plan KASSANDRA SAMUEL DO May 08, 2019 10:39 JASON ATKINS MD May 08, 2019 16:34
[2019-05-08 12:46] LABS: VENOUS BASE EXCESS -0.6 (-2.0-2.0); VENOUS HCO3 26.2 MEQ/L (23.0-27.0); VENOUS O2 SATURATION 78.4 % (60.0-80.0); VENOUS PARTIAL PRESSURE CO2 52.1 mmHg (38.0-50.0); VENOUS PARTIAL PRESSURE O2 47.3 mmHg (30.0-50.0); VENOUS STANDARD HCO3 23.5 MEQ/L; VENOUS TOTAL CO2 27.8 MEQ/L (24.0-28.0)
[2019-05-08 12:57] LABS: BASO % 0.5 % (0.0-1.0); EOS # 0.1 10^3/uL (0.0-0.5); EOS % 1.9 % (0.0-3.0); HEMATOCRIT 38.3 % (42.0-52.0); HEMOGLOBIN 13.1 g/dl (13.5-17.5); LYMPH % 17.2 % (24.0-44.0); MEAN CORPUSCULAR HEMOGLOBIN 27.8 pg (27.0-33.0); MEAN CORPUSCULAR HGB CONC 34.2 g/dl (32.0-36.5); MEAN CORPUSCULAR VOLUME 81.1 fl (80.0-96.0); MONO # 0.7 10^3/uL (0.0-0.8); MONO % 12.4 % (0.0-5.0); NEUTROPHILS # 3.9 10^3/uL (1.5-8.5); PLATELET COUNT, AUTOMATED 225 10^3/uL (150-450); RED BLOOD COUNT 4.72 10^6/uL (4.30-6.10); WHITE BLOOD COUNT 5.9 10^3/uL (4.0-10.0)
[2019-05-08 13:11] LABS: ABG HCO3 24.2 MEQ/L (22.0-26.0); ABG O2 SATURATION 96.1 % (95.0-99.0); ABG PARTIAL PRESSURE CO2 38.1 mmHg (35.0-45.0); ABG PARTIAL PRESSURE O2 83.2 mmHg (75.0-100.0); ABG STANDARD HCO3 24.5 MEQ/L (22.0-26.0); ABG TOTAL CO2 25.4 MEQ/L (23.0-31.0); ABG pH (ARTERIAL) 7.421 UNITS (7.350-7.450)
[2019-05-08 13:15] LABS: CPK CREATINE PHOSPHOKINASE 179 U/L (39-308); MB/CK RELATIVE INDEX 1.12 (< OR =4); TROPONIN I < 0.02 NG/ML (< 0.10)
[2019-05-08 13:20] LABS: CALCIUM LEVEL 9.4 MG/DL (8.8-10.2); CREATININE FOR GFR 2.06 MG/DL (0.70-1.30); GLOMERULAR FILTRATION RATE 34.3 (>49); MAGNESIUM LEVEL 2.3 MG/DL (1.8-2.4); POTASSIUM SERUM 3.6 MEQ/L (3.5-5.1)
[2019-05-08] MEDS ORDERED: NS 1,000 ML IV ONE (13:30)
--- NOTE | 2019-05-08 13:34 | REP ---
Single view chest: 05/08/2019. Indication: Cough. Comparison: 01/16/2019. Findings: Left-sided Port-A-Cath is present with the distal tip at the cavoatrial junction. There is no evidence of airspace consolidation, pleural effusion or pneumothorax. Cardiac silhouette is not enlarged. Impression: There is no evidence of acute cardiopulmonary process. Electronically Signed by Erlin Mendoza DO 05/08/2019 01:25 P
[2019-05-08] MEDS ORDERED: GLUCAGON FOR INJ 1 MG VIAL (J1610) SC PRN (14:30)
[2019-05-08] MEDS ORDERED: GLUCOSE 4 GM CHEW TABLET PO PRN (14:30)
[2019-05-08] MEDS ORDERED: DEXTROSE 50% 50 ML SYRINGE IV PRN (14:30)
[2019-05-08] MEDS: HumaLOG INSULIN (NovoLOG) PER UNIT SC SCH ×2 (17:21→20:54)
[2019-05-08 17:51] LABS: CALCIUM LEVEL 8.9 MG/DL (8.8-10.2); CREATININE FOR GFR 1.88 MG/DL (0.70-1.30); GLOMERULAR FILTRATION RATE 38.1 (>49)
[2019-05-08] MEDS: NS 1,000 ML IV SCH (18:13)
[2019-05-08] MEDS: ACETAMINOPHEN TAB 650MG DOSE (2X325MG) PO PRN (19:59)
[2019-05-08] MEDS: LEVEMIR (INSULIN DETEMIR) 1 UNITS/0.01ML SC SCH (20:54)
[2019-05-09] MEDS: NS 1,000 ML IV SCH ×2 (00:56→10:00)
--- NOTE | 2019-05-09 01:14 | ECGEPIP ---
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
[2019-05-09 04:00] VITALS: BP 109/65
[2019-05-09 05:02] LABS: HEMATOCRIT 37.5 % (42.0-52.0); HEMOGLOBIN 12.3 g/dl (13.5-17.5); MEAN CORPUSCULAR HEMOGLOBIN 27.7 pg (27.0-33.0); MEAN CORPUSCULAR HGB CONC 32.8 g/dl (32.0-36.5); MEAN CORPUSCULAR VOLUME 84.5 fl (80.0-96.0); PLATELET COUNT, AUTOMATED 193 10^3/uL (150-450); RED BLOOD COUNT 4.44 10^6/uL (4.30-6.10); WHITE BLOOD COUNT 3.9 10^3/uL (4.0-10.0)
[2019-05-09 05:20] LABS: CALCIUM LEVEL 8.3 MG/DL (8.8-10.2); CREATININE FOR GFR 1.39 MG/DL (0.70-1.30); GLOMERULAR FILTRATION RATE 53.9 (>49); MAGNESIUM LEVEL 1.9 MG/DL (1.8-2.4); POTASSIUM SERUM 4.1 MEQ/L (3.5-5.1)
[2019-05-09 08:49] VITALS: BP 138/74
[2019-05-09] MEDS: HumaLOG INSULIN (NovoLOG) PER UNIT SC SCH ×4 (09:59→20:42)
[2019-05-09] MEDS: HEPARIN SOD (PORCINE) 5000 UNITS/ML VIAL SC SCH ×2 (09:59→20:41)
[2019-05-09] MEDS: LEVEMIR (INSULIN DETEMIR) 1 UNITS/0.01ML SC SCH ×2 (09:59→20:42)
[2019-05-09 14:35] VITALS: BP 122/75
--- NOTE | 2019-05-09 15:16 | IPNPDOC ---
Date Seen The patient was seen on 05/09/19. Progress Note SUBJECTIVE: Patient has no complaints today. Mentation has improved. He would like to go home. Denies any suicidal ideation or thoughts to carry out of hurting himself. Patient denies chest pain, shortness breath, nausea, vomiting, fevers, chills OBJECTIVE PHYSICAL EXAMINATION: VITAL SIGNS: Please see below. GENERAL: Pleasant sitting up in the chair awake alert and oriented speaking in complete sentences but in no acute distress HEENT: Moist mucous membranes no elevation in CVP CARDIOVASCULAR: S1 S2 regular no additional heart sounds appreciated. RESPIRATORY: Clear to auscultation bilaterally. ABDOMINAL: Bowel sounds present abdomen soft and nontender EXTREMITIES: No clubbing cyanosis or edema NEUROLOGICAL: Spontaneously moves all 4 extremities cranial 2 through 12 grossly intact no gross focal deficits appreciated PSYCHOLOGICAL: Appropriate LABORATORY DATA, MICROBIOLOGY: Please see below. IMAGING STUDIES: No imaging ASSESSMENT AND PLAN: This is a 68-year-old male with Hyperglycemia Hyperosmolar PROBLEMS: Hyperglycemia Hyperosmolar (Corrected) -Possible cause of the hyperglycemia can be due to recent steroid use prescribed on the And noncompliance with insulin. -Currently tolerating meals, and on ISS AC&HS -Increase Levermir to 30 units BID, so we can reduce AC coverage, once the patient goes home. Non-specofic T wave abnormality in lateral leads possible secondary to acidosis (Resolving) -Denies chest pain -Cardiac markers 2 negative -EKG is compared to January 2019. There are T-wave changes in V4-V5 and V6 -Repeat today, shows reversal of the T-waves after correction of the hyperglycemia electrolyte abnormality GODWIN (Improving) -Secondary to dehydration -Baseline creatinine 1.2 -Continue with IV fluids till noon then transition to PO fluids in the afternoon. -Monitor Pseudohyponatremia (Corrected) -Secondary to hyperglycemia Hyperlipidemia -Restart atorvastatin Depression -Restart fluoxetine -At the time of admission, patient did state he wanted to hurt himself and sitter was placed -Today mentation has improved. When asked patient on his plan to hurt himself he denies having one, or thought of following through on hurt himself. He is competent. - Will discontinue sitter and suicide precautions Hypertension -Because of a GODWIN and current hypotension -Continue to hold restart atenolol (unsure if this for blood pressure control vs rate control no documented A. fib history or palpitations noted.) if need bp control, will restart this first with holding perimeters. -Hold lisinopril and hydrochlorothiazide UNTIL GODWIN resolves -Hold Doxazosin for now as well (unsure if this is for blood pressure control or for BPH) DVT prophylaxis: Heparin SQ DISPOSITION: Correct glucose possible discharge in the AM VS, I&O, 24H, [place] Vital Signs/I&O Vital Signs Date Time Temp Pulse Resp B/P (MAP) Pulse Ox O2 Delivery O2 Flow Rate FiO2 05/09/19 08:49 97.4 62 16 138/74 (95) 98 Room Air I&O- Last 24 Hours up to 6 AM 05/09/19 06:00 Intake Total 4135 ml Output Total 1575 ml Balance 2560 ml Laboratory Data 24H LABS Laboratory Tests 2 05/08/19 17:16: Anion Gap 7L, Glomerular Filtration Rate 38.1L, Calcium Level 8.9 05/09/19 04:45: Anion Gap 6L, Glomerular Filtration Rate 53.9, Calcium Level 8.3L, Nucleated Red Blood Cells % (auto) 0.0, Magnesium Level 1.9 05/09/19 12:33: Bedside Glucose (Misc Panel) 238H CBC/BMP Laboratory Tests 05/08/19 17:16 05/09/19 04:45 Microbiology Microbiology 05/08/19 Blood Culture, Received Pending 05/08/19 Blood Culture, Received Pending GME ATTESTATION GME ATTESTATION My faculty preceptor for this patient encounter was physically present during the encounter and was fully available. All aspects of the patient interview, examination, medical decision making process, and medical care plan development were reviewed and approved by the faculty preceptor. The faculty preceptor is aware and concurs with the plan as stated in the body of this note and will attest to such by his/her cosignature. ATTENDING NOTE Patient was seen and examined by me this morning with the residents. Agree with the above assessment and plan KASSANDRA SAMUEL DO May 09, 2019 15:16 JASON ATKINS MD May 09, 2019 15:41
[2019-05-09] MEDS: FLUoxetine 20 MG CAP PO SCH (16:45)
[2019-05-09] MEDS: ATORVASTATIN 20 MG TAB PO SCH (16:46)
[2019-05-09 20:19] VITALS: BP 124/77
--- NOTE | 2019-05-10 00:01 | ECGEPIP ---
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
[2019-05-10 04:48] VITALS: BP 149/79
[2019-05-10 05:14] LABS: HEMOGLOBIN 11.6 g/dl (13.5-17.5); MEAN CORPUSCULAR HEMOGLOBIN 28.4 pg (27.0-33.0); MEAN CORPUSCULAR HGB CONC 34.1 g/dl (32.0-36.5); MEAN CORPUSCULAR VOLUME 83.1 fl (80.0-96.0); PLATELET COUNT, AUTOMATED 183 10^3/uL (150-450); RED BLOOD COUNT 4.09 10^6/uL (4.30-6.10); WHITE BLOOD COUNT 3.9 10^3/uL (4.0-10.0)
[2019-05-10 05:31] LABS: BLOOD UREA NITROGEN 23 MG/DL (7-18); CALCIUM LEVEL 8.4 MG/DL (8.8-10.2); CARBON DIOXIDE LEVEL 25 MEQ/L (21-32); CHLORIDE LEVEL 107 MEQ/L (98-107); CREATININE FOR GFR 1.12 MG/DL (0.70-1.30); GLOMERULAR FILTRATION RATE > 60.0 (>49); GLUCOSE, FASTING 264 MG/DL (70-100); MAGNESIUM LEVEL 1.8 MG/DL (1.8-2.4); SODIUM LEVEL 138 MEQ/L (136-145)
[2019-05-10] MEDS ORDERED: INSUDET SC ×2 (07:26→07:41)
[2019-05-10 08:20] VITALS: BP 158/96
[2019-05-10] MEDS: LEVEMIR (INSULIN DETEMIR) 1 UNITS/0.01ML SC SCH (08:29)
[2019-05-10] MEDS: HumaLOG INSULIN (NovoLOG) PER UNIT SC SCH (08:29)
[2019-05-10] MEDS: ATORVASTATIN 20 MG TAB PO SCH (08:30)
[2019-05-10] MEDS: HEPARIN SOD (PORCINE) 5000 UNITS/ML VIAL SC SCH (08:30)
[2019-05-10] MEDS: FLUoxetine 20 MG CAP PO SCH (08:31)
[2019-05-10] MEDS ORDERED: LISINOPRIL 40 MG TAB PO SCH (09:00)
[2019-05-10] MEDS: ACETAMINOPHEN TAB 650MG DOSE (2X325MG) PO PRN (10:00)
--- NOTE | 2019-05-10 14:54 | DS.PDOC ---
Discharge Summary General Date of Admission May 08, 2019 at 03:38 Date of Discharge 05/10/2019 Discharge Summary DISCHARGE DIAGNOSIS: Hyperglycemia hyperosmolar SECONDARY DIAGNOSIS: HPI Pseudohyponatremia Hyperlipidemia Depression Hypertension PROCEDURES PERFORMED DURING STAY: None CONSULTANTS: None HOSPITAL COURSE: The patient was admitted to ICU was treated for hyperglycemia hyperosmolar, the likely cause of his hyperglycemia was from recent prednisone use this past week. Once glucose is under controlled adjustments were made on home insulin regimen. It was documented on our charts the patient was also taking 80 mg twice a day of Levemir we reduced it to 40 units twice a day with a max daily dose of 80 units daily. He was educated on the importance of diabetic control when at home. Blood pressure was slightly soft therefore his home blood pressure meds were held while admitted. It was recommended that he may continue his lisinopril and hydrochlorothiazide upon discharge but to discontinue the atenolol. Recommendations were made for the patients follow-up with his primary care provider with these new adjustments. Home services was also recommended and a [id number] was filled out. Patient was stable on the day of discharge to go home and he was agreeable to all plan stated to him today.. DISCHARGE MEDICATIONS: Please see below. ALLERGIES: Please see below. SUBJECTIVE: Patient has no complaints today. He would like to go home. Patient denies chest pain, shortness breath, nausea, vomiting, fevers, chills OBJECTIVE: GENERAL: Pleasant laying awake alert and oriented speaking in complete sentences but in no acute distress HEENT: Moist mucous membranes no elevation in CVP CARDIOVASCULAR: S1 S2 regular no additional heart sounds appreciated. RESPIRATORY: Clear to auscultation bilaterally. ABDOMINAL: Bowel sounds present abdomen soft and nontender EXTREMITIES: No clubbing cyanosis or edema NEUROLOGICAL: Spontaneously moves all 4 extremities cranial 2 through 12 grossly intact no gross focal deficits appreciated PSYCHOLOGICAL: Appropriate LABORATORY DATA, MICROBIOLOGY: Please see below. IMAGING STUDIES: No imaging DVT prophylaxis: Heparin SQ ASSESSMENT AND PLAN: This is a 68-year-old male with Hyperglycemia Hyperosmolar Hyperglycemia Hyperosmolar (Corrected) -Possible cause of the hyperglycemia can be due to recent steroid use prescribed on the And noncompliance with insulin. -Currently tolerating meals, and on ISS AC&HS -Increase Levermir to 40 units BID, so we can reduce AC coverage, once the patient goes home. Non-specofic T wave abnormality in lateral leads possible secondary to acidosis (Resolving) -Denies chest pain -Cardiac markers 2 negative -EKG is compared to January 2019. There are T-wave changes in V4-V5 and V6 -Repeat today, shows reversal of the T-waves after correction of the hyperglycemia electrolyte abnormality GODWIN (Improving) -Secondary to dehydration -Baseline creatinine 1.2 -Continue with IV fluids till noon then transition to PO fluids in the afternoon. -Monitor Pseudohyponatremia (Corrected) -Secondary to hyperglycemia Hyperlipidemia -Restart atorvastatin Depression -Restart fluoxetine -At the time of admission, patient did state he wanted to hurt himself and sitter was placed -Today mentation has improved. When asked patient on his plan to hurt himself he denies having one, or thought of following through on hurt himself. He is competent. - Will discontinue sitter and suicide precautions Hypertension -Because of a GODWIN and current hypotension -Continue to hold restart atenolol (unsure if this for blood pressure control vs rate control no documented A. fib history or palpitations noted.) if need bp control, Discontinue on discharge. -Hold lisinopril and hydrochlorothiazide UNTIL GODWIN resolves -Hold Doxazosin for now as well (unsure if this is for blood pressure control or for BPH) DISPOSITION: Home DISCHARGE CONDITION: Improved and Stable. PROGNOSIS: Fair FOLLOW UP: 1. Follow-up with his primary care provider in 7-10 days 2. New long-acting insulin (Levemir) dose is 30 units twice a day 3. Stopped taking prednisone and atenolol 4. If symptoms return or worsen please call your primary care provider or return to the ER. ACTIVITY: As prior to admission. DIET: As prior to admission TIME SPENT ON DISCHARGE: 50 minutes Vital Signs/I&Os Vital Signs Date Time Temp Pulse Resp B/P (MAP) Pulse Ox O2 Delivery O2 Flow Rate FiO2 05/10/19 08:20 97.0 70 16 158/96 (116) 98 Room Air I&O- Last 24 Hours up to 6 AM 05/10/19 06:00 Intake Total 1710 ml Output Total 875 ml Balance 835 ml Laboratory Data Labs 24H Laboratory Tests 2 05/09/19 16:37: Bedside Glucose (Misc Panel) 251H 05/09/19 20:20: Bedside Glucose (Misc Panel) 317H 05/10/19 04:47: Nucleated Red Blood Cells % (auto) 0.0, Anion Gap 6L, Glomerular Filtration Rate > 60.0, Calcium Level 8.4L, Magnesium Level 1.8 CBC/BMP Laboratory Tests 05/10/19 04:47 FSBS Laboratory Tests Test 05/09/19 16:37 05/09/19 20:20 Range/Units Bedside Glucose (Misc Panel) 251 317 80-115 MG/DL Microbiology Microbiology 05/08/19 Blood Culture - Preliminary, Resulted No growth after 24 hours . All specim... 05/08/19 Blood Culture - Preliminary, Resulted No Growth after 48 hours. All Specime... Discharge Medications Scheduled Atorvastatin Calcium (Atorvastatin Calcium) 40 Mg Tab, 40 MG PO DAILY, (Reported) Doxazosin Mesylate (Doxazosin) 2 Mg Tab, 2 MG PO DAILY, (Reported) Fluoxetine Hcl (Fluoxetine HCl) 20 Mg Cap, 20 MG PO DAILY, (Reported) Hydrochlorothiazide (Hydrochlorothiazide) 25 Mg Tab, 25 MG PO DAILY, (Reported) Insulin Detemir (Levemir) 100 Unit/1 Ml Vial, 40 UNITS SC BID Insulin Human Lispro (Humalog) 1 Units/0.01 Ml Inj, 1 DOSE SC AC, (Reported) PER SLIDING SCALE Lisinopril (Lisinopril) 40 Mg Tab, 40 MG PO DAILY, (Reported) Magnesium Oxide (Magnesium Oxide) 400 Mg Tablet, 400 MG PO BID, (Reported) Potassium Chloride (Potassium Chloride) 10 Meq Tab.er.prt, 10 MEQ PO DAILY, (Reported) Scheduled PRN Ondansetron HCl (Ondansetron HCl) 4 Mg Tablet, 4 MG PO TID PRN for NAUSEA, (Reported) Allergies Coded Allergies: No Known Allergies (Unverified , 05/07/19) GME ATTESTATION GME ATTESTATION My faculty preceptor for this patient encounter was physically present during the encounter and was fully available. All aspects of the patient interview, examination, medical decision making process, and medical care plan development were reviewed and approved by the faculty preceptor. The faculty preceptor is aware and concurs with the plan as stated in the body of this note and will attest to such by his/her cosignature. ATTENDING NOTE Pt was seen and examined by me personally. Agree with the above assessment and plan . KASSANDRA SAMUEL DO May 10, 2019 14:54 JASON ATKINS MD May 10, 2019 16:29
== END 2019-05-10 10:07 | disposition home health service (06) | DRG 637 ==
LOC: M ED 22:59 → M ED INP 05-08 03:38 → M ICU 05-08 04:55
PROVIDERS: ADMIT Internal Medicine; ATTEND Internal Medicine
DX: E11.00 Type 2 diabetes mellitus with hyperosmolarity without nonketotic hyperglycemic-hyperosmolar coma (NKHHC) (principal); G93.41 Metabolic encephalopathy; E87.1 Hypo-osmolality and hyponatremia; N17.9 Acute kidney failure, unspecified; E78.5 Hyperlipidemia, unspecified; I10 Essential (primary) hypertension; F32.9 Major depressive disorder, single episode, unspecified; F03.90 Unspecified dementia, unspecified severity, without behavioral disturbance, psychotic disturbance, mood disturbance, and anxiety; Z79.4 Long term (current) use of insulin; Z79.52 Long term (current) use of systemic steroids; Z79.899 Other long term (current) drug therapy; Z85.79 Personal history of other malignant neoplasms of lymphoid, hematopoietic and related tissues

== ENCOUNTER 2019-07-09 13:40 | Emergency (ER) | payer MEDICARE ==
[~2019-07-09 13:40] MED LIST changes: +MAGN400T3 PO; +ONDA-83 PO; +ONDA8TAB10 PO; -ONDA8TAB7 PO; +POTA10TA16 PO; +PRED20TA PO
[2019-07-09] MEDS ORDERED: DERMABOND TOPICAL SKIN ADHESIVE TOP ONE (14:30)
--- NOTE | 2019-07-09 14:33 | REP ---
CT of the brain without IV contrast for trauma: Comparison is 08/08/2018. There is no subdural or epidural hematoma. There is no subarachnoid or intraparenchymal hemorrhage. There is no edema, mass effect or midline shift. The ventricles and sulci are mildly enlarged compatible with diffuse volume loss. This is unchanged. There are old lacunar infarcts in the basal ganglia bilaterally and in the thalamus on the left, unchanged. There are zones of subcortical lucency compatible with chronic microvascular ischemia, particularly in the left frontal lobe, unchanged. Impression: There is no acute intracranial hemorrhage or subdural hematoma. There is no edema, mass effect or midline shift. Chronic mild diffuse volume loss and evidence for chronic microvascular ischemia are unchanged from the prior study. Electronically Signed by Randall Garcia MD 07/09/2019 02:24 P
[2019-07-09 15:02] VITALS: BP 110/73
== END 2019-07-09 15:03 | disposition home or self-care (01) ==
LOC: EDBD 13:40 → M ED 13:40
DX: S01.01XA Laceration without foreign body of scalp, initial encounter (principal); W01.190A Fall on same level from slipping, tripping and stumbling with subsequent striking against furniture, initial encounter; Y92.098 Other place in other non-institutional residence as the place of occurrence of the external cause; I12.9 Hypertensive chronic kidney disease with stage 1 through stage 4 chronic kidney disease, or unspecified chronic kidney disease; E11.9 Type 2 diabetes mellitus without complications; E78.9 Disorder of lipoprotein metabolism, unspecified; N18.3 Chronic kidney disease, stage 3 (moderate); K63.89 Other specified diseases of intestine; I67.82 Cerebral ischemia; Z79.899 Other long term (current) drug therapy; Z79.4 Long term (current) use of insulin

== ENCOUNTER 2019-07-31 14:22 | Emergency (ER) | payer MEDICARE ==
[~2019-07-31] VITALS: Ht 167.6 cm; Wt 86.4 kg
[~2019-07-31 14:22] MED LIST changes: -FLUO20CA19; -FLUO20CA19 PO; +FLUO20CA22; +FLUO20CA22 PO
[2019-07-31 16:09] LABS: BASO % 0.5 % (0.0-1.0); EOS % 0.8 % (0.0-3.0); HEMATOCRIT 32.3 % (42.0-52.0); HEMOGLOBIN 11.2 g/dl (13.5-17.5); LYMPH # 0.4 10^3/uL (1.5-5.0); LYMPH % 11.1 % (24.0-44.0); MEAN CORPUSCULAR HGB CONC 34.7 g/dl (32.0-36.5); MEAN CORPUSCULAR VOLUME 83.7 fl (80.0-96.0); MONO # 0.5 10^3/uL (0.0-0.8); MONO % 11.9 % (0.0-5.0); NEUTROPHILS % 74.9 % (36.0-66.0); PLATELET COUNT, AUTOMATED 208 10^3/uL (150-450); RED BLOOD COUNT 3.86 10^6/uL (4.30-6.10)
[2019-07-31 16:22] LABS: ALBUMIN 3.7 GM/DL (3.2-5.2); BILIRUBIN,DIRECT 0.2 MG/DL (0.0-0.2); BILIRUBIN,TOTAL 0.6 MG/DL (0.2-1.0); CALCIUM LEVEL 9.1 MG/DL (8.8-10.2); CREATININE FOR GFR 1.46 MG/DL (0.70-1.30); POTASSIUM SERUM 4.1 MEQ/L (3.5-5.1); TOTAL PROTEIN 6.9 GM/DL (6.4-8.2)
[2019-07-31] MEDS ORDERED: NS 500 ML IV ONE (16:30)
[2019-07-31] MEDS ORDERED: NS 1,000 ML IV SCH (16:30)
--- NOTE | 2019-07-31 16:54 | REP ---
Maxillofacial CT study without contrast: History: Facial trauma in a fall. Comparison: Maxillofacial CT study is from April 20, 2018. CT findings: There is moderate maxillary sinus mucosal thickening on the left which is essentially unchanged. The maxillary sinuses are otherwise clear. Nasal bone and inferior maxillary spine are intact. Zygomatic arches are intact. No orbital fracture is seen. The bony nasal septum deviates to the left with a septal beak. No mandibular fracture is seen. The patient is edentulous. No skull base fracture is appreciated. Impression: No mandibular or maxillary facial fracture is appreciated. There is mucosal thickening affecting the left maxillary sinus. Vascular calcification is noted. Electronically Signed by Vincenzo Kenney MD 07/31/2019 05:19 P
[2019-07-31 16:55] LABS: INFLUENZA A AMPLIFICATION NEGATIVE (NEGATIVE); INFLUENZA B AMPLIFICATION NEGATIVE (NEGATIVE)
[2019-07-31] MEDS ORDERED: DOXY100C37 PO (17:19)
[2019-07-31] MEDS ORDERED: IBUPROFEN 600 MG TAB PO ONE (17:30)
[2019-07-31 17:49] VITALS: BP 139/69
[2019-07-31] MEDS ORDERED: DOXYCYCLINE HYCLATE 100 MG TAB PO ONE (18:00)
== END 2019-07-31 17:51 | disposition left against medical advice (07) ==
LOC: M ED 14:22 → EDBD 14:22 → M ED 17:51
DX: L03.211 Cellulitis of face (principal); E87.2 Acidosis; E11.9 Type 2 diabetes mellitus without complications; N40.0 Benign prostatic hyperplasia without lower urinary tract symptoms; G93.41 Metabolic encephalopathy; Z79.899 Other long term (current) drug therapy; Z79.4 Long term (current) use of insulin; F17.210 Nicotine dependence, cigarettes, uncomplicated

== ENCOUNTER 2019-08-14 19:50 | Emergency (ER) | payer MEDICARE ==
[~2019-08-14] VITALS: Ht 167.6 cm; Wt 86.0 kg
[~2019-08-14 19:50] MED LIST changes: +DOXY100C37 PO
[2019-08-14 20:00] VITALS: BP 105/56
[2019-08-14] MEDS ORDERED: LIDOCAINE 1% MDV 20ML VIAL SC ONE (20:15)
--- NOTE | 2019-08-14 21:04 | REPVR ---
PROCEDURE INFORMATION: Exam: CT Maxillofacial Without Contrast Exam date and time: 08/14/2019 8:15 PM Age: 68 years old Clinical indication: Injury or trauma; Fall; Initial encounter; Blunt trauma (contusions or hematomas); Nose; Additional info: Fall, laceration TECHNIQUE: Imaging protocol: Computed tomography images of the face without contrast. Radiation optimization: All CT scans at this facility use at least one of these dose optimization techniques: automated exposure control; mA and/or kV adjustment per patient size (includes targeted exams where dose is matched to clinical indication); or iterative reconstruction. COMPARISON: CT Maxilofacial w/out contrast 07/31/2019 4:03 PM FINDINGS: Orbits: Orbits are normal. Globes are unremarkable. Sinuses: No air-fluid levels. Bones/joints: Mandible is intact. Degenerative changes in the temporomandibular joints. No acute fracture or destructive bone lesions are seen. Soft tissues: Soft tissue laceration and soft tissue swelling in the right nasal soft tissues and anterior nasal septum. Mild perioral soft tissue swelling. No radiopaque foreign body is seen. Other findings: The exam is degraded by patient motion artifact. IMPRESSION: 1. Motion limited exam. 2. Nasal laceration. No foreign body is seen. Anterior facial soft tissue swelling. 3. No acute fracture. Electronically signed by: Kanu Kang On 08/14/2019 21:03:38 PM
--- NOTE | 2019-08-14 21:08 | REPVR ---
PROCEDURE INFORMATION: Exam: CT Head Without Contrast Exam date and time: 08/14/2019 8:15 PM Age: 68 years old Clinical indication: Injury or trauma; Fall; Initial encounter; Blunt trauma (contusions or hematomas); Additional info: Fall, laceration TECHNIQUE: Imaging protocol: Computed tomography of the head without contrast. Radiation optimization: All CT scans at this facility use at least one of these dose optimization techniques: automated exposure control; mA and/or kV adjustment per patient size (includes targeted exams where dose is matched to clinical indication); or iterative reconstruction. COMPARISON: CT Head without contrast 07/09/2019 2:08 PM FINDINGS: Brain: There is cerebral atrophy and changes of chronic white matter microvascular disease. No signs of a recent infarction or hemorrhage. 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 Ventricles: Normal. No ventriculomegaly. Bones/joints: Unremarkable. No acute fracture. Sinuses: Visualized sinuses are unremarkable. No fluid levels. Mastoid air cells: Visualized mastoid air cells are well aerated. Soft tissues: Unremarkable. IMPRESSION: Atrophy and chronic white matter changes. No acute intracranial abnormality. Electronically signed by: Kanu Kang On 08/14/2019 21:07:49 PM
--- NOTE | 2019-08-14 21:13 | REPVR ---
PROCEDURE INFORMATION: Exam: CT Cervical Spine Without Contrast Exam date and time: 08/14/2019 8:15 PM Age: 68 years old Clinical indication: Injury or trauma; Fall; Initial encounter; Blunt trauma; Additional info: Fall, laceration TECHNIQUE: Imaging protocol: Computed tomography images of the cervical spine without contrast. Radiation optimization: All CT scans at this facility use at least one of these dose optimization techniques: automated exposure control; mA and/or kV adjustment per patient size (includes targeted exams where dose is matched to clinical indication); or iterative reconstruction. COMPARISON: No relevant prior studies available. FINDINGS: Vertebrae: Grade 1 anterolisthesis at C3-C4. Otherwise normal alignment. No acute fracture or bone lesions. Discs/Spinal canal/Neural foramina: Advanced discogenic degenerative changes throughout the cervical spine. Posterior disc bulging causes mild central spinal canal narrowing at C3-C4. Facet degenerative changes throughout the cervical spine with mild multilevel foraminal stenosis. Soft tissues: Unremarkable. Lungs: Lung apices are normal. IMPRESSION: 1. No fracture. 2. Advanced degenerative spondylosis as above. Electronically signed by: Kanu Kang On 08/14/2019 21:13:16 PM
[2019-08-14] MEDS ORDERED: HumaLOG INSULIN (NovoLOG) PER UNIT SC STA (21:30)
[2019-08-14] MEDS ORDERED: AUGM875T28 PO (21:32)
[2019-08-14] MEDS ORDERED: AUGMENTIN 875 MG TAB PO ONE (21:45)
== END 2019-08-14 21:58 | disposition home or self-care (01) ==
LOC: M ED 19:50
DX: S01.21XA Laceration without foreign body of nose, initial encounter (principal); W18.39XA Other fall on same level, initial encounter; Y92.018 Other place in single-family (private) house as the place of occurrence of the external cause; E11.9 Type 2 diabetes mellitus without complications; I10 Essential (primary) hypertension; C85.90 Non-Hodgkin lymphoma, unspecified, unspecified site; E78.5 Hyperlipidemia, unspecified; N40.0 Benign prostatic hyperplasia without lower urinary tract symptoms; F17.210 Nicotine dependence, cigarettes, uncomplicated

== ENCOUNTER 2019-08-18 14:45 | Emergency (ER) | payer MEDICARE ==
[~2019-08-18] VITALS: Ht 172.7 cm; Wt 75.0 kg
[~2019-08-18 14:45] MED LIST changes: +AUGM875T28 PO
[2019-08-18] MEDS ORDERED: HumuLIN R (REGULAR) INSULIN (NovoLIN R) **100U/ML** PER UNIT SC ONE (17:15)
[2019-08-18] MEDS ORDERED: DERMABOND TOPICAL SKIN ADHESIVE TOP ONE (17:15)
--- NOTE | 2019-08-18 17:46 | REP ---
CT brain without contrast: History: Injury in a fall with laceration to the right outer eye. Comparison head CT study a August 14, 2019. CT findings: Preliminary digital fitness studies teacher radiograph is unremarkable. On bone window settings, there is no evidence of skull fracture. There is heavy vascular calcification in the distal vertebral and distal carotid arteries. Visualized paranasal sinuses are clear. No intraorbital hematoma is appreciated. On soft tissue window settings, there is moderate generalized atrophy again noted. Extensive small vessel atherosclerotic changes are noted. There is evidence of an old area of encephalomalacia in the left frontal lobe inferiorly unchanged consistent with infarction or previous contusion/hemorrhage. There are old tiny lacunar infarcts in the caudate nuclei bilaterally also unchanged. There is a second basal ganglia infarct on the left which appears old as well. No acute infarction or hemorrhage is seen. No extra-axial fluid collection or mass lesion is observed. Impression: Small vessel atherosclerotic changes. Diffuse atrophy. Old encephalomalacia left frontal lobe and bilateral basal ganglia infarcts. No acute intracranial abnormality. Electronically Signed by Vincenzo Kenney MD 08/18/2019 08:08 P
--- NOTE | 2019-08-18 17:48 | REP ---
Maxillofacial CT study without contrast: Tree: Fall with laceration of the right lateral orbit region. Findings: The patient is edentulous. There is a small quantity of mucosal thickening in the left maxillary sinus. There is preseptal periorbital swelling on the right. No intraorbital hematoma is seen. Zygomatic arches are intact. Orbital margins appear intact. Medial and inferior guillaume of the orbits appear intact. Bony nasal septum deviates to the left with a leftward beak. There is evidence of a nasal bone fracture on coronal and sagittal images. Inferior maxillary spine appears to be intact. Impression: There is evidence of a nasal bone fracture. No orbital fracture is appreciated. Mucosal thickening in the left maxillary sinus. Preseptal periorbital swelling on the right. Vascular calcification. Electronically Signed by Vincenzo Kenney MD 08/18/2019 08:08 P
[2019-08-18 19:20] VITALS: BP 121/81
== END 2019-08-18 19:21 | disposition home or self-care (01) ==
LOC: EDBD 14:45 → M ED 14:45
DX: S01.111A Laceration without foreign body of right eyelid and periocular area, initial encounter (principal); S02.2XXA Fracture of nasal bones, initial encounter for closed fracture; W19.XXXA Unspecified fall, initial encounter; Y92.099 Unspecified place in other non-institutional residence as the place of occurrence of the external cause; Y93.01 Activity, walking, marching and hiking; Y99.9 Unspecified external cause status; E11.9 Type 2 diabetes mellitus without complications; Z91.19 Patient's noncompliance with other medical treatment and regimen; Z86.73 Personal history of transient ischemic attack (TIA), and cerebral infarction without residual deficits; Z79.899 Other long term (current) drug therapy; Z79.4 Long term (current) use of insulin

== ENCOUNTER 2019-08-25 11:43 | Emergency (ER) | payer MEDICARE ==
[~2019-08-25] VITALS: Ht 167.6 cm; Wt 77.6 kg
[2019-08-25] MEDS ORDERED: POTA1TAB23 (11:53)
[2019-08-25 12:38] VITALS: BP 112/90
== END 2019-08-25 12:38 | disposition home or self-care (01) ==
LOC: M ED 11:43
DX: Z48.02 Encounter for removal of sutures (principal); Z79.4 Long term (current) use of insulin; Z79.899 Other long term (current) drug therapy; Z88.8 Allergy status to other drugs, medicaments and biological substances

== ENCOUNTER 2019-11-07 15:20 | Observation (INO) | payer MEDICARE ==
[~2019-11-07] VITALS: Ht 167.6 cm; Wt 74.6 kg
[~2019-11-07 15:20] MED LIST changes: +POTA1TAB23
--- NOTE | 2019-11-07 15:48 | ECGEPIP ---
[facility] - ED Test Date: 2019-11-07 Pat Name: MARIPOSA STRINGER Department: Room: - Gender: Male Program Review Director: luis : 1950 Requested By: Mike Alva Order Number: [id number] Reading MD: Mike Alva Measurements Intervals [place] Rate: 107 P: [place]: 0 QRS: 58 QRSD: 88 T: 75 QT: 359 QTc: 480 Interpretive Statements SINUS TACHYCARDIA LOW QRS VOLTAGE IN LIMB LEADS MINIMAL ST DEPRESSION DELAYED R WAVE PROGRESSION CW 05/09/19 RATE INCREASED IMPROVED LATERAL ST T WAVE CHANGES Electronically Signed on 11-07-2019 15:48:27 EDT by Mike Alva
[2019-11-07 15:52] LABS: VENOUS BASE EXCESS -1.6 (-2.0-2.0); VENOUS HCO3 23.6 MEQ/L (23.0-27.0); VENOUS O2 SATURATION 81.8 % (60.0-80.0); VENOUS PARTIAL PRESSURE CO2 41.8 mmHg (38.0-50.0); VENOUS PARTIAL PRESSURE O2 47.3 mmHg (30.0-50.0); VENOUS STANDARD HCO3 22.8 MEQ/L; VENOUS TOTAL CO2 24.9 MEQ/L (24.0-28.0)
[2019-11-07 15:56] LABS: EOS # 0.1 10^3/uL (0.0-0.5); EOS % 0.9 % (0.0-3.0); HEMATOCRIT 32.1 % (42.0-52.0); HEMOGLOBIN 10.7 g/dl (13.5-17.5); LYMPH # 0.7 10^3/uL (1.5-5.0); LYMPH % 12.2 % (24.0-44.0); MEAN CORPUSCULAR HEMOGLOBIN 27.8 pg (27.0-33.0); MEAN CORPUSCULAR HGB CONC 33.3 g/dl (32.0-36.5); MEAN CORPUSCULAR VOLUME 83.4 fl (80.0-96.0); MONO # 0.4 10^3/uL (0.0-0.8); MONO % 7.2 % (0.0-5.0); NEUTROPHILS # 4.6 10^3/uL (1.5-8.5); NEUTROPHILS % 79.4 % (36.0-66.0); PLATELET COUNT, AUTOMATED 219 10^3/uL (150-450); RED BLOOD COUNT 3.85 10^6/uL (4.30-6.10); WHITE BLOOD COUNT 5.8 10^3/uL (4.0-10.0)
[2019-11-07 16:12] LABS: INR 1.12; PROTHROMBIN TIME 14.1 SECONDS (11.8-14.0)
[2019-11-07 16:13] LABS: PARTIAL THROMBOPLASTIN TIME 27.4 SECONDS (25.0-38.4)
--- NOTE | 2019-11-07 16:21 | REP ---
CT study of the cervical spine without contrast: History: Diabetic ketoacidosis. Technique: Helical scanning is acquired and overlapping 2 mm high resolution axial images were generated and reviewed at bone and soft tissue window settings. Coronal and sagittal multiplanar re-formations images are generated. CT findings: There is no evidence of cervical spine element fracture. No skull base fracture is seen. Cervical vertebral body heights are preserved. Alignment is normal. Facet joints are normally aligned bilaterally at each cervical level on multiplanar re-formations images. There is no evidence of intraspinal or paraspinal hematoma. No extra vertebral abnormality is seen. There are degenerative disc changes most pronounced at the C 04/05 and C5-6 and C6-7. There is osteoarthritis at the articulation between the dens and the anterior arch of C1. Osteoarthritic facet disease is noted bilaterally in the upper cervical spine most pronounced on the left. There is vascular calcification is noted along the course of the carotid bifurcations bilaterally. There is central disc bulging at C3-C4. Posterior osteophytic ridging is seen with diffuse disc bulging at C5-6. Impression: Degenerative spondylosis changes. Otherwise negative CT study of the cervical spine without contrast. No fracture seen. Electronically Signed by Vincenzo Kenney MD 11/07/2019 04:12 P
--- NOTE | 2019-11-07 16:26 | REP ---
CHEST: Single view. There is no evidence of acute infiltrate. No pleural effusion is seen. The heart is normal in size. The mediastinal silhouette is unremarkable. The visualized osseous structures are intact. There is a left central venous catheter with the tip in the superior vena cava. IMPRESSION: No acute pulmonary disease. Electronically Signed by Randall Hardy MD 11/07/2019 04:31 P
[2019-11-07 16:32] LABS: ALBUMIN 3.5 GM/DL (3.2-5.2); ALT/SGPT 25 U/L (12-78); BILIRUBIN,DIRECT 0.2 MG/DL (0.0-0.2); BILIRUBIN,TOTAL 0.6 MG/DL (0.2-1.0); BLOOD UREA NITROGEN 46 MG/DL (7-18); CARBON DIOXIDE LEVEL 23 MEQ/L (21-32); CHLORIDE LEVEL 91 MEQ/L (98-107); CK-MB VALUE MASS < 1.0 NG/ML (<3.6); CPK CREATINE PHOSPHOKINASE 193 U/L (39-308); CREATININE FOR GFR 1.91 MG/DL (0.70-1.30); GLOMERULAR FILTRATION RATE 37.3 (>42); GLUCOSE, FASTING 664 MG/DL (70-100); LIPASE 121 U/L (73-393); MAGNESIUM LEVEL 2.1 MG/DL (1.8-2.4); MB/CK RELATIVE INDEX 0.52 (< OR =4); PHOSPHORUS LEVEL 4.5 MG/DL (2.5-4.9); POTASSIUM SERUM 4.8 MEQ/L (3.5-5.1); SODIUM LEVEL 126 MEQ/L (136-145); TOTAL PROTEIN 6.5 GM/DL (6.4-8.2); TROPONIN I < 0.02 NG/ML (< 0.10)
[2019-11-07 16:35] LABS: HEMOGLOBIN A1c 14.3 %
--- NOTE | 2019-11-07 16:38 | REP ---
CT BRAIN WITHOUT CONTRAST: HISTORY: Diabetic ketoacidosis. COMPARISON: Head CT study August 18, 2019. CT FINDINGS: Digital preliminary broiler manager radiograph is unremarkable. The patient is edentulous. Bone window settings demonstrate an intact bony calvarium. There is a minimal amount of mucosal thickening and fluid in the right side of the sphenoid sinus. There is a displaced chip fracture fragment of the right side of the nasal bone. No other fracture is seen. There is heavy vascular calcification at the skull base. Low-density encephalomalacia is again noted in the left inferior frontal lobe and to a lesser extent left anterior and inferior temporal lobe, unchanged from comparison study. There is an old lacunar infarct in the left basal ganglia, also unchanged. There are mild small vessel changes again noted. There is no evidence of intracranial hemorrhage. No extra-axial fluid collection is seen. No new infarction is appreciated. There is mild generalized volume loss. IMPRESSION: Old areas of encephalomalacia left inferior frontal lobe and left inferior temporal lobe. There are two old lacunar infarcts in the left basal ganglia, also unchanged. Generalized volume loss and vascular calcification. Small vessel changes. No acute intracranial abnormality. There is a displaced chip fracture fragment of the right side of the nasal bone. This is seen at the bottom of the imaging field of view. Electronically Signed by Vincenzo Kenney MD 11/11/2019 10:55 A
--- NOTE | 2019-11-07 16:41 | REP ---
MAXILLOFACIAL CT STUDY WITHOUT CONTRAST: HISTORY: Diabetic ketoacidosis. CT FINDINGS: There is a comminuted displaced nasal bone fracture. Inferior maxillary spine is intact. No other maxillary fracture is seen. Zygomatic arches are intact. Bony sinus margins and bony orbital margins are unremarkable. Bony nasal septum deviates to the left with a septal beak. No mandibular fracture is seen. The patient is edentulous. IMPRESSION: Depressed and somewhat comminuted nasal bone fracture. Otherwise negative. Vascular calcification. Electronically Signed by Vincenzo Kenney MD 11/11/2019 10:55 A
[2019-11-07] MEDS ORDERED: HumuLIN R (REGULAR) INSULIN (NovoLIN R) **100U/ML** PER UNIT IV ONE (16:45)
[2019-11-07] MEDS ORDERED: NS 500 ML IV ONE ×2 (17:00)
[2019-11-07] MEDS ORDERED: INSUDET SC (18:21)
[2019-11-07 18:27] LABS: VENOUS BASE EXCESS -4.3 (-2.0-2.0); VENOUS HCO3 19.3 MEQ/L (23.0-27.0); VENOUS O2 SATURATION 98.9 % (60.0-80.0); VENOUS PARTIAL PRESSURE CO2 30.4 mmHg (38.0-50.0); VENOUS PARTIAL PRESSURE O2 159.8 mmHg (30.0-50.0); VENOUS TOTAL CO2 20.2 MEQ/L (24.0-28.0)
[2019-11-07] MEDS ORDERED: VITA-243 PO (18:28)
[2019-11-07] MEDS ORDERED: CVS2500C PO (18:28)
[2019-11-07] MEDS ORDERED: VITA100T14 PO (18:28)
[2019-11-07] MEDS ORDERED: VITAD1000T PO (18:28)
[2019-11-07] MEDS ORDERED: GLUCOSE 4GM CHEW TABLET PO PRN (18:30)
[2019-11-07] MEDS ORDERED: GLUCAGON INJ 1MG VIAL SC PRN (18:30)
[2019-11-07] MEDS ORDERED: DEXTROSE 50% 50 ML SYRINGE IV PRN (18:30)
--- NOTE | 2019-11-07 19:26 | HPE ---
DATE OF ADMISSION: 11/07/2019 ADMISSION DIAGNOSES: 1. Diabetes out of control secondary to noncompliance. 2. 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 3. Hypertension. 4. Hyperlipidemia. 5. Stage III chronic kidney disease. 6. Acute on chronic renal failure. 7. BPH. HISTORY: Patient is frequently hospitalized for diabetes out of control. He often leaves against medical advice (indeed, he is threatening to leave the emergency room against medical advice and may well do this before we can get him admitted). He has had polyuria, polydipsia and fatigue. When he came to the emergency room, blood sugar was significantly elevated. His hemoglobin A1c is over 14. He is noncompliant with insulin regimen. Part of this is he really cannot understand it at all. I am not sure whether he is literate or simply not intellectually capable of sliding scale of insulin. He admits he has no idea what he is doing with his insulin doses. SOCIAL HISTORY: He is . He does not smoke or drink any alcohol. I am not convinced that he is literate, certainly does not have mental capacity for complex reasoning. MEDICATIONS: - vitamin C - atorvastatin 40 mg daily - vitamin D - B12 2500 mcg daily - doxazosin 2 mg daily - fluoxetine 20 mg daily - hydrochlorothiazide 25 mg daily - detemir insulin 40 units twice a day - sliding scale insulin, which he does not follow - lisinopril 40 mg daily - Mag-Ox 400 mg twice a day - potassium chloride 10 mEq daily - vitamin B6 100 mg daily ALLERGIES: Allergies are to PREDNISONE. REVIEW OF SYSTEMS: Not obtainable. He is not answering questions. He is disgruntled. Initially denying any chest pain or shortness of breath. We did not get beyond that. PHYSICAL EXAM: Vital signs per flow sheet. He has an abrasion on his nose, apparently from a fall. He will not give me details of the fall. HEENT: Unremarkable. Lungs: Clear. Heart: Regular rhythm. 1/6 systolic ejection murmur. Abdomen: Soft, nontender, nondistended. both feet, decreased sensation on touching his feet. LABS: White count 5.8, hemoglobin 10.7, platelets 219. Sodium 126, potassium 4.8, BUN 49, creatinine 1.9, glucose is 664, bicarbonate is normal at 23, anion gap is normal at 12, hemoglobin A1c is 14.3%. Lactate is elevated. IMPRESSION: 1. Diabetes out of control secondary to noncompliance. The patient will be admitted to a medical bed. I have started his Lantus insulin at a dose of 30 units twice daily, sliding scale of insulin with coverage, lactated Ringer's for hydration. I do not think he needs a monitor bed nor an insulin drip. It is unlikely he is going to stay for admission anyway. The patient is not capable of understanding or complying with a sliding scale insulin regimen, and this should be kept in mind should he stay in the hospital when it comes time to discharge him. 2. Hyperlipidemia. Continue statin therapy. 3. Hypertension. Hold his lisinopril and thiazide in the face of acute renal failure. 4. Acute renal failure superimposed on chronic kidney disease. Lactated Ringer's has been ordered for hydration. Angiotensin-converting enzyme (NATANAEL) inhibitor and diuretic held. Repeat labs ordered for the morning. 5. History of BPH. He is on doxazosin, which we will continue. 6. Deep vein thrombosis (DVT) prophylaxis with reduced dose of Lovenox has been ordered.
[2019-11-07] MEDS ORDERED: HumaLOG INSULIN (NovoLOG) PER UNIT SC STA (20:14)
[2019-11-07] MEDS ORDERED: HumaLOG INSULIN (NovoLOG) PER UNIT SC SCH (21:00)
[2019-11-07] MEDS ORDERED: DOXAZOSIN MESYLATE 1 MG TAB PO SCH (21:00)
[2019-11-07] MEDS: LEVEMIR (INSULIN DETEMIR) 1 UNITS/0.01ML SC SCH (21:44)
[2019-11-07] MEDS: LR 1,000 ML IV SCH (21:45)
[2019-11-07] MEDS: HumaLOG INSULIN (NovoLOG) PER UNIT SC SCH (21:48)
[2019-11-07 22:50] VITALS: BP 132/90
[2019-11-08] MEDS: LR 1,000 ML IV SCH (01:10)
[2019-11-08 04:00] VITALS: BP 121/78
[2019-11-08 04:51] LABS: HEMATOCRIT 28.7 % (42.0-52.0); HEMOGLOBIN 9.9 g/dl (13.5-17.5); MEAN CORPUSCULAR HEMOGLOBIN 28.4 pg (27.0-33.0); MEAN CORPUSCULAR HGB CONC 34.5 g/dl (32.0-36.5); MEAN CORPUSCULAR VOLUME 82.5 fl (80.0-96.0); PLATELET COUNT, AUTOMATED 201 10^3/uL (150-450); RED BLOOD COUNT 3.48 10^6/uL (4.30-6.10)
[2019-11-08 05:18] LABS: CALCIUM LEVEL 8.6 MG/DL (8.8-10.2); CREATININE FOR GFR 1.28 MG/DL (0.70-1.30); GLOMERULAR FILTRATION RATE 59.1 (>42); POTASSIUM SERUM 3.8 MEQ/L (3.5-5.1)
[2019-11-08 07:30] VITALS: BP 106/66
[2019-11-08] MEDS ORDERED: ENOXAPARIN 30MG/0.3ML SYRINGE (J1650 PER 10MG) SC SCH (09:00)
[2019-11-08] MEDS ORDERED: ATORVASTATIN 20 MG TAB PO SCH (09:00)
[2019-11-08] MEDS ORDERED: FLUoxetine 20 MG CAP PO SCH (09:00)
[2019-11-08] MEDS: LEVEMIR (INSULIN DETEMIR) 1 UNITS/0.01ML SC SCH (09:03)
[2019-11-08] MEDS: HumaLOG INSULIN (NovoLOG) PER UNIT SC SCH ×2 (09:06→11:55)
[2019-11-08 11:45] VITALS: BP 127/75
[2019-11-08 12:07] LABS: CALCIUM LEVEL 8.6 MG/DL (8.8-10.2); CREATININE FOR GFR 1.47 MG/DL (0.70-1.30); GLOMERULAR FILTRATION RATE 50.4 (>42)
[2019-11-08] MEDS ORDERED: FLUO20CA22 PO (12:42)
[2019-11-08] MEDS ORDERED: HYDR25TAB PO (12:42)
[2019-11-08] MEDS ORDERED: VITAD1000T PO (12:42)
[2019-11-08] MEDS ORDERED: ATOR40TA75 PO (12:42)
[2019-11-08] MEDS ORDERED: INSUHUMDS SC (12:42)
[2019-11-08] MEDS ORDERED: MAGN400T3 PO (12:42)
[2019-11-08] MEDS ORDERED: DOXA2TAB3 PO (12:42)
[2019-11-08] MEDS ORDERED: VITA100T14 PO (12:42)
[2019-11-08] MEDS ORDERED: CVS2500C PO (12:42)
[2019-11-08] MEDS ORDERED: POTA10TA16 PO (12:42)
[2019-11-08] MEDS ORDERED: VITA-243 PO (12:42)
[2019-11-08] MEDS ORDERED: INSUDET SC (12:42)
[2019-11-08] MEDS ORDERED: LISI40TA PO (12:42)
--- NOTE | 2019-11-08 17:33 | IPNPDOC ---
Subjective Date Seen The patient was seen on 11/08/19. Subjective Chief Complaint/HPI Wants to leave General: Denies: ROS Unobtainable, Chills, Night Sweats, Fatigue, Malaise, Normal Appetite, Other Symptoms Constitutional: Reports: Weakness Eyes: Denies: Pain, Vision change, Conjunctivae inflammation, Eyelid inflammation, Redness, Other ENT: Denies: Head Aches, Ear Pain, Dysphagia, Sinus Congestion, Post Nasal Drip, Sore Throat, Epistaxis, Other Symptoms Skin: Denies: Rash, Lesions, Jaundice, Bruising, Itching, Dry, Breakdown, Nail Changes, Other Cardiovascular: Denies: Chest Pain, Palpitations, Orthopnea, Paroxysmal Noc. Dyspnea, Edema, Lt Headedness, Other Symptoms Gastrointestinal: Denies: Nausea, Vomiting, Abdominal Pain, Diarrhea, Constipation, Melena, Hematochezia, Other Symptoms Genitourinary: Denies: Dysuria, Frequency, Incontinence, Hematuria, Retention, Other Symptoms Hematologic: Denies: Bruising, Bleeding Excessively, Petecchia, Purpura, Enlarged Lymph Nodes, Other Hematologic Endocrine: Denies: Polydipsia, Polyphagia, Polyuria, Heat Intolerance, Cold Intolerance, Other Endocrine Sx Musculoskeletal: Denies: Neck Pain, Back Pain, Shoulder Pain, Arm Pain, Hand P ain, Leg Pain, Foot Pain, Joint Pain, Muscle Pain, Spasms, Other Symptoms Neurological: Reports: Weakness Psych: Reports: Mood Normal Objective Physical Examination General Exam: Positive: Alert, Other (uncooperative) Eye Exam: Positive: PERRLA, Conjunctiva & lids normal Chest Exam: Positive: Diminished Heart Exam: Positive: Rate Normal, Normal S1, Normal S2 Abdomen Exam: Positive: Normal bowel sounds, Soft Extremity Exam: Positive: Edema Skin Exam: Positive: Other skin issue (abrasions to nose) Neuro Exam: Positive: Normal Speech Psych Exam: Positive: Anxiety, Oriented x 3 Assessment /Plan Assessment 69 year old elderly male with significant PMH of DM type II uncontrolled with multiple episodes of Hyperglycemia, elevated creatinine, hypertension, hyperlipidemia, CKD 3 with acute on chronic renal failure, BPH, and 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. Patient has a known history of leaving the hospital AMA and has frequent admissions for his uncontrolled DM II (current hemoglobin A1c is greater than 14). I explain to the patient the pros/cons of leaving AMA and he stated he understands and he is able to walk so it means he is able to go home. AMA discharge paper provided for patient with medications sent to his pharmacy on file. Diabetes Mellitus type II (uncontrolled) Insulin Dependent-Chronic -He will continue Lantus 30 units bid SC -Sliding scale Lispro AC & HS (hopefully his can help him with his sliding scale due to patient level of understanding and willingness to comply) 0 - 100 mg/dl 0 units 101- 150 mg/dl 2 units 151 - 200 mg/dl 4 units 201 - 250 mg/dl 6 units 251 - 300 mg/dl 8 units 301 - 350 mg/dl 10 units 351 - 400 mg/dl 12 units > 400 mg/dl 14 units > 500 mg/dl Call your PCP Hyperlipidemia-Chronic -Continue Atorvastatin Depression/anxiety Continue Fluoxetine home medication. BPJ-Chronic Continue Doxazosin Stage II E Small Intestine Large B Cell Lymphoma Continue Vitamin D, Vitamin C, Vitamin B12, Mag-Ox, and Vitamin B6 Hypertension with Acute on chronic renal failure, CKD stg 3 -Chronic -Continue Lisinopril, potassium chloride, HCTZ Follow up with PCP in 3-7 days or if symptoms worsen to the nearest ER. Plan/VTE VTE Prophylaxis Ordered?: Yes Plan IVF: Continue Diet: Continue Current Activity: Continue Current Medications: Replete Electrolytes IV Diagnostics: Check Labs, Repeat Labs in AM Anticipated Discharge: AMA Advance Directives: Other Advance Directive (Patient would not say if he is DNR/DNI or who he has designated as his health care proxy. ) VS, I&O, 24H, Fishbone Vital Signs/I&O Vital Signs Date Time Temp Pulse Resp B/P (MAP) Pulse Ox O2 Delivery O2 Flow Rate FiO2 11/08/19 07:30 96.8 80 18 106/66 (79) 95 Room Air I&O- Last 24 Hours up to 6 AM 11/08/19 05:59 Intake Total 1400 ml Output Total 925 ml Balance 475 ml Laboratory Data 24H LABS Laboratory Tests 2 11/07/19 15:44: Immature Granulocyte % (Auto) 0.3, Neutrophils (%) (Auto) 79.4H, Lymphocytes (%) (Auto) 12.2L, Monocytes (%) (Auto) 7.2H, Eosinophils (%) (Auto) 0.9, Basophils (%) (Auto) 0.0, Neutrophils # (Auto) 4.6, Lymphocytes # (Auto) 0.7L, Monocytes # (Auto) 0.4, Eosinophils # (Auto) 0.1, Basophils # (Auto) 0.0, Nucleated Red Blood Cells % (auto) 0.0, Prothrombin Time 14.1H, Prothromb Time International Ratio 1.12, Activated Partial Thromboplast Time 27.4, Blood Gas Bicarbonate Standard 22.8, Venous Blood pH 7.370, Venous Blood Partial Pressure CO2 41.8, Venous Blood Partial Pressure O2 47.3, Venous Blood Total Carbon Dioxide 24.9, Venous Blood HCO3 23.6, Venous Blood Oxygen Saturation 81.8H, Venous Blood Base Excess -1.6, Anion Gap 12, Glomerular Filtration Rate 37.3L, Estimated Mean Plasma Glucose 364H, Hemoglobin A1c 14.3, Lactic Acid Level 3.7*H, Calcium Level 9.0, Phosphorus Level 4.5, Magnesium Level 2.1, Total Bilirubin 0.6, Direct Bilirubin 0.2, Aspartate Amino Transf (AST/SGOT) 11, Alanine Aminotransferase (ALT/SGPT) 25, Alkaline Phosphatase 127H, Total Creatine Kinase 193, Creatine Ki nase MB < 1.0, Creatine Kinase MB Relative Index 0.52, Troponin I < 0.02, Total Protein 6.5, Albumin 3.5, Albumin/Globulin Ratio 1.2, Lipase 121 11/07/19 16:02: POC Glucose (Misc Panel) > 700*H, POC Sodium (Misc Panel) 124L, POC Potassium (Misc Panel) 4.8, POC Chloride (Misc Panel) 89L, POC Total CO2 (Misc Panel) 23.0, POC Blood Urea Nitrogen (Misc Panel 39H, POC Ionized Calcium (Misc Panel) 4.8, POC Creatinine (Misc Panel) 1.7H, POC Hematocrit (Misc Panel) 31.0L 11/07/19 16:52: Urine Color STRAW, Urine Appearance CLEAR, Urine pH 5.0, Urine Specific [place] 1.023, Urine Protein NEGATIVE, Urine Glucose (UA) 3+H, Urine Ketones NEGATIVE, Urine Blood NEGATIVE, Urine Nitrite NEGATIVE, Urine Bilirubin NEGATIVE, Urine Urobilinogen 0.2, Urine Leukocyte Esterase NEGATIVE, Urine WBC (Auto) 1, Urine RBC (Auto) 1, Urine Hyaline Casts (Auto) 0, Urine Bacteria (Auto) NEGATIVE, Urine Squamous Epithelial Cells 0, Urine Mucus (Auto) SMALL, Urine Sperm (Auto) 11/07/19 18:19: Blood Gas Bicarbonate Standard 21.0, Venous Blood pH 7.420, Venous Blood Partial Pressure CO2 30.4L, Venous Blood Partial Pressure O2 159.8H, Venous Blood Total Carbon Dioxide 20.2L, Venous Blood HCO3 19.3L, Venous Blood Oxygen Saturation 98.9H, Venous Blood Base Excess -4.3L 11/07/19 19:02: Bedside Glucose (Misc Panel) 574*H 11/07/19 20:48: Lactic Acid Followup at 4 Hours 3.3*H 11/07/19 21:13: Bedside Glucose (Misc Panel) 598*H 11/07/19 23:01: Bedside Glucose (Misc Panel) 440H 11/08/19 01:15: Bedside Glucose (Misc Panel) 397H 11/08/19 03:37: Bedside Glucose (Misc Panel) 309H 11/08/19 04:15: Nucleated Red Blood Cells % (auto) 0.0, Anion Gap 8, Glomerular Filtration Rate 59.1, Calcium Level 8.6L, Magnesium Level 2.0 11/08/19 05:53: Bedside Glucose (Misc Panel) 280H CBC/BMP Laboratory Tests 11/07/19 15:44 11/08/19 04:15 Microbiology Microbiology 11/07/19 Blood Culture, Received Pending 11/07/19 Blood Culture, Received Pending MANSI NEWTON REPAIR SPECIALIST November 08, 2019 10:50
== END 2019-11-08 12:31 | disposition left against medical advice (07) ==
LOC: M ED 15:20 → M ED INP 15:21 → CANRESERV 20:00 → ENRESERV 20:00 → M PCU 23:02
PROVIDERS: ADMIT Family Medicine; ATTEND Internal Medicine
DX: E11.65 Type 2 diabetes mellitus with hyperglycemia (principal); Z53.21 Procedure and treatment not carried out due to patient leaving prior to being seen by health care provider; Z91.14 Patient's other noncompliance with medication regimen; I12.9 Hypertensive chronic kidney disease with stage 1 through stage 4 chronic kidney disease, or unspecified chronic kidney disease; E78.49 Other hyperlipidemia; N18.3 Chronic kidney disease, stage 3 (moderate); N40.0 Benign prostatic hyperplasia without lower urinary tract symptoms; F41.9 Anxiety disorder, unspecified; F32.9 Major depressive disorder, single episode, unspecified; C83.39 Diffuse large B-cell lymphoma, extranodal and solid organ sites; Z79.4 Long term (current) use of insulin; Z79.899 Other long term (current) drug therapy; Z88.8 Allergy status to other drugs, medicaments and biological substances
CPT/HCPCS: 36415; 70450; 70486; 71045; 72125; 80047; 80048; 80076; 81001; 82550; 82553; 82803; 83036; 83605; 83690; 83735; 84100; 84484; 85025; 85027; 85610; 85730; 87040; 93005; 93041; 96361; 96374; 99285; G0378

== ENCOUNTER → 2020-06-23 | Outpatient (CLI) | payer MEDICARE ==
[~2020-06-23] MED LIST changes: +AMLO1TAB24; +AMLO1TAB24 PO; -AMLO5TAB6; -AMLO5TAB6 PO; +CVS2500C PO; +D31000TA2 PO; +DEXTROSE 50% 50 ML SYRINGE As Ordered ONE; +LIDOCAINE 1% MDV 20ML VIAL As Ordered ONE; +MIDAZOLAM INJ 2MG/2ML VIAL (J2250 PER 1MG) As Ordered ONE; +VITA-243 PO; +VITA100T14 PO; +ceFAZolin 2 GM/D5W 50 ML IV BAG (J0690 PER 500MG) As Ordered ONE; +diphenhydrAMINE 50MG/ML VIAL (J1200) As Ordered ONE; +fentaNYL 100 MCG/2 ML INJECTION (J3010) As Ordered ONE
--- NOTE | 2020-06-23 15:39 | IRHP ---
[facility] IR Pre-Procedure H & P General Date of Service: Jun 23, 2020 Procedure: Same Day Surgery Interval History and Physical I have seen the patient and reviewed last H & P performed within 30 days. There is no significant interval change. History of Present Illness Chief Complaint The patient is a 69-year-old male admitted with a reason for visit of Large B Cell Lymphoma. PRE-PROCEDURE DIAGNOSIS: lymphoma. port no longer needed HEART: normal rate. LUNGS: normal breathing at rest. ASA Classification ASA Classification: III-Severe systemic dis. Mallampati Score: II NPO: Yes Problems with prior sedation: No Obstructive Sleep Apnea: Yes Plan moderate sedation Allergies Coded Allergies: prednisone (Verified Adverse Reaction, Mild, blood sugar elevates, 08/25/19) Home Medications Scheduled Ascorbic Acid (Vitamin C), 1,000 MG PO DAILY Atorvastatin Calcium (Atorvastatin Calcium), 40 MG PO QHS Cholecalciferol (Vitamin D3) (Vitamin D3), 1,000 UNITS PO DAILY Cyanocobalamin (Vitamin B-12) (Vitamin B12), 2,500 MCG PO DAILY Doxazosin Mesylate (Doxazosin), 2 MG PO DAILY Fluoxetine Hcl (Fluoxetine HCl), 20 MG PO DAILY Hydrochlorothiazide (Hydrochlorothiazide), 25 MG PO DAILY Insulin Detemir (Levemir), 40 UNITS SC BID Insulin Human Lispro (Humalog), 1 DOSE SC AC Lisinopril (Lisinopril), 40 MG PO DAILY Magnesium Oxide (Magnesium Oxide), 400 MG PO BID Potassium Chloride (Potassium Chloride), 10 MEQ PO DAILY Pyridoxine HCl (Vitamin B6) (Vitamin B-6), 100 MG PO DAILY VS, I&O, 24H, Fishbone Vital Signs/I&O Vital Signs Date Time Temp Pulse Resp B/P (MAP) Pulse Ox O2 Delivery O2 Flow Rate FiO2 06/23/20 15:30 58 16 100 Nasal Cannula 2 06/23/20 14:17 96.4 Laboratory Data 24H LABS Laboratory Tests 2 06/23/20 13:51: Bedside Glucose (Misc Panel) 54L 06/23/20 14:27: Bedside Glucose (Misc Panel) 151H 06/23/20 14:56: Bedside Glucose (Misc Panel) 124H JONO CRAWFODR MD Jun 23, 2020 15:39
[2020-06-23 17:10] VITALS: BP 146/78
--- NOTE | 2020-06-28 09:42 | POST-OPPD ---
Postoperative Procedure Note Date Of Procedure: Jun 23, 2020 Time Of Procedure: 16:00 Port Removal / Explant Clinical Information:Lymphoma treated. Port no longer needed. Physician: Dr. Chilel Procedure: The patient was advised of the benefits, risks, and alternatives of the procedure and informed consent was obtained. A time out was performed with verification of the patient's name, MRN, site of procedure, and type of procedure to be performed. The patient was positioned in the supine position on the angiographic table. The site was prepped and draped in the usual sterile fashion. Moderate sedation was performed by the physician including the presence of an independent trained RN who assisted in monitoring the patient's level of consciousness and physiological status. Following the administration of fentanyl and Versed the physician spent 30 minutes of continuous [id number] time with the patient. A library historian radiograph reveals a left sided port. The soft tissues overlying the port were anesthetized with lidocaine. An incision was made over the port using a 15 blade scalpel in the location of the prior incision. The catheter was then freed with blunt dissection and extract ed. Pressure was applied to obtain hemostasis. The port was then freed with blunt dissection and subsequently removed. There were no signs of infection. After hemostasis was achieved, the incision was closed with interrupted deep 3-0 Vicryl sutures and subcuticular Monocryl suture followed by glue and steri- strips. The site was covered with a sterile dressing. The patient tolerated the procedure well and was returned to the PRU in stable condition. EBL:Less than 5 mL Complications:None. Conclusions: 1. Successful explant of a left sided port. 2. No signs of infection. Thank you for this referral JONO CHILEL MD Jun 28, 2020 09:42
== END ==
LOC: M IRPRO 13:37
PROVIDERS: ATTEND Radiology Diagnostic Radiology
DX: Z45.2 Encounter for adjustment and management of vascular access device (principal); C83.30 Diffuse large B-cell lymphoma, unspecified site; Z79.4 Long term (current) use of insulin; Z79.899 Other long term (current) drug therapy; Z88.8 Allergy status to other drugs, medicaments and biological substances
CPT/HCPCS: 36590; 99152; 99153; J0690; J1644; J2250; J3010

== ENCOUNTER → 2020-06-25 | Outpatient (CLI) | payer MEDICARE ==
[~2020-06-25] MED LIST changes: -DEXTROSE 50% 50 ML SYRINGE As Ordered ONE; -LIDOCAINE 1% MDV 20ML VIAL As Ordered ONE; -MIDAZOLAM INJ 2MG/2ML VIAL (J2250 PER 1MG) As Ordered ONE; -ceFAZolin 2 GM/D5W 50 ML IV BAG (J0690 PER 500MG) As Ordered ONE; -diphenhydrAMINE 50MG/ML VIAL (J1200) As Ordered ONE; -fentaNYL 100 MCG/2 ML INJECTION (J3010) As Ordered ONE
--- NOTE | 2020-06-25 11:17 | REP ---
INDICATION: RENAL INSUFFIENCY. COMPARISON: Comparison urinary tract sonography August 29, 2017. Comparison CT study January 13, 2020.. TECHNIQUE: Urinary tract sonography. FINDINGS: Scanning of the level of the urinary bladder shows incomplete bladder distension. Prostate gland is slightly prominent with trans abdominal dimensions of 4.2 x 4.1 x 4.9 cm, 44 mL. Renal cortical echogenicity pattern is normal and renal contours are smooth bilaterally. There is no evidence of hydronephrosis or mass. There is a lower pole cyst in the left kidney 1.6 x 1.6 by 1.0 cm in diameter. On August 29, 2017 this measured 0.9 cm. It is a little larger. No renal mass lesion is observed. . . The right kidney measures 11.1 x 5.5 x 3.9 cm. Left renal dimensions are 11.7 by 4.8 x 4.3 cm. IMPRESSION: 1.6 cm slightly complex cyst lower pole left kidney. This measured 0.9 cm in greatest diameter in 2018. Otherwise negative urinary tract sonography. Prostate slightly prominent.. <Electronically signed by Bk Kenney > 06/25/20 [id number]
== END ==
LOC: M RAD 10:36
PROVIDERS: ATTEND Internal Medicine Medical Oncology
DX: N28.89 Other specified disorders of kidney and ureter (principal); N28.1 Cyst of kidney, acquired

== ENCOUNTER → 2020-07-13 | Outpatient (POV) | payer MEDICARE ==
[~2020-07-13] MED LIST changes: +HYDR-3490; +HYDR-3490 PO; -HYDR25TAB; -HYDR25TAB PO; -LISI-538 PO; -LISI-542 PO; +LISI-898 PO; +LISI20TA33 PO; -LISI40TA; -LISI40TA PO; +LISI40TA4; +LISI40TA4 PO; -MAG400TA PO; +MAGN400T35 PO
--- NOTE | 2020-07-15 10:12 | IRPN ---
[facility] IR Progress Note IR Progress Note DATE: Jul 13, 2020 Patient agreed to this telephone follow-up. I spent 5 minutes talking to the patient. FOLLOW-UP: Status post port placement. Patient states he is doing well. Denies fevers, chills, pain or discharge at site. ON EXAMINATION: No video on patient side. IMPRESSION: Doing well status post port placement. No further follow-up scheduled unless initiated by patient and/or referring provider. Thank you for this referral Allergies Coded Allergies: prednisone (Verified Adverse Reaction, Mild, blood sugar elevates, 08/25/19) JONO CRAWFORD MD Jul 15, 2020 10:12
== END ==
LOC: M TMIRPOV 09:08
PROVIDERS: ATTEND Radiology Diagnostic Radiology
DX: Z45.2 Encounter for adjustment and management of vascular access device (principal)

== ENCOUNTER → 2020-07-20 | Outpatient (REF) | payer MEDICARE ==
[~2020-07-20] MED LIST changes: -HYDR-3490; -HYDR-3490 PO; +HYDR25TAB; +HYDR25TAB PO; +LISI-538 PO; +LISI-542 PO; -LISI-898 PO; -LISI20TA33 PO; +LISI40TA; +LISI40TA PO; -LISI40TA4; -LISI40TA4 PO; +MAG400TA PO; -MAGN400T35 PO
[2020-07-20 16:56] LABS: BASO % 0.3 % (0.0-1.0); EOS # 0.1 10^3/uL (0.0-0.5); EOS % 2.1 % (0.0-3.0); HEMOGLOBIN 12.1 g/dl (13.5-17.5); LYMPH # 1.2 10^3/uL (1.5-5.0); LYMPH % 20.3 % (24.0-44.0); MEAN CORPUSCULAR HEMOGLOBIN 28.3 pg (27.0-33.0); MEAN CORPUSCULAR HGB CONC 32.7 g/dl (32.0-36.5); MEAN CORPUSCULAR VOLUME 86.4 fl (80.0-96.0); MONO # 0.7 10^3/uL (0.0-0.8); MONO % 10.7 % (0.0-5.0); NEUTROPHILS % 66.1 % (36.0-66.0); PLATELET COUNT, AUTOMATED 241 10^3/uL (150-450); RED BLOOD COUNT 4.28 10^6/uL (4.30-6.10); WHITE BLOOD COUNT 6.1 10^3/uL (4.0-10.0)
[2020-07-20 17:25] LABS: ALBUMIN 4.2 GM/DL (3.2-5.2); ALT/SGPT 26 U/L (12-78); BILIRUBIN,TOTAL 0.2 MG/DL (0.2-1.0); BLOOD UREA NITROGEN 67 MG/DL (7-18); CALCIUM LEVEL 10.1 MG/DL (8.8-10.2); CARBON DIOXIDE LEVEL 27 MEQ/L (21-32); CHLORIDE LEVEL 104 MEQ/L (98-107); CHOLESTEROL LEVEL 209 MG/DL (<200); CHOLESTEROL RISK RATIO 5.971 (<5); GLOMERULAR FILTRATION RATE 49.3 (>42); GLUCOSE, FASTING 82 MG/DL (70-100); HDL CHOLESTEROL 35 MG/DL (>40); NON-HDL-C 174 MG/DL; POTASSIUM SERUM 4.5 MEQ/L (3.5-5.1); SODIUM LEVEL 139 MEQ/L (136-145); TOTAL PROTEIN 7.3 GM/DL (6.4-8.2); TRIGLYCERIDES LEVEL 529 MG/DL (<150)
[2020-07-20 18:51] LABS: HEMOGLOBIN A1c 6.5 %
== END ==
LOC: M LAB REF 16:31
PROVIDERS: ATTEND Family Medicine Addiction Medicine
DX: E11.9 Type 2 diabetes mellitus without complications (principal)

== ENCOUNTER → 2021-01-12 | Outpatient (REF) | payer MEDICARE ==
[~2021-01-12] MED LIST changes: +COVI30VI IM; +DOXY-443 PO; -DOXY100C37 PO; +HYDR-3490; +HYDR-3490 PO; -HYDR25TAB; -HYDR25TAB PO; -LISI-538 PO; -LISI-542 PO; +LISI20TA33 PO; -LISI40TA; -LISI40TA PO; +LISI40TA4; +LISI40TA4 PO; +LISI5TAB11 PO; -MAG400TA PO; -MAGN400T3 PO; +MAGN400T33 PO; +MAGN400T35 PO; +ONDA-84 PO; -ONDA8TAB10 PO; +POTA-149 PO; -POTA10TA14; -POTA10TA16 PO; +POTA1TAB24; -PROC10TA4 PO; +PROC10TA5 PO
== END ==
LOC: M LAB REF 17:30
PROVIDERS: ATTEND Physician Assistant
DX: L03.115 Cellulitis of right lower limb (principal)

== ENCOUNTER 2021-01-15 15:42 | Emergency (ER) | payer MEDICARE ==
[~2021-01-15] VITALS: Ht 167.6 cm; Wt 99.2 kg
[~2021-01-15 15:42] MED LIST changes: -DOXY-443 PO; +DOXY1CAP62 PO; +LISI-898 PO; -LISI5TAB11 PO; +MAGN400T3 PO; -MAGN400T33 PO; -ONDA-84 PO; +ONDA8TAB10 PO; -POTA-149 PO; +POTA10TA14; +POTA10TA16 PO; -POTA1TAB24; +PROC10TA4 PO; -PROC10TA5 PO
[2021-01-15 16:31] VITALS: BP 132/87
--- NOTE | 2021-01-15 17:12 | REP ---
INDICATION: trauma. COMPARISON: Portable chest, 11/07/2019. TECHNIQUE: PA chest supplemented by 4 images of the left-sided ribs. FINDINGS: There is cardiomegaly and aortic ectasia consistent with benign essential hypertension. The lungs are clear. There is no lobar consolidation or pleural effusion. There are multiple healed rib fractures on the left. There are no acute rib fractures evident. IMPRESSION: Findings consistent with hypertension. No evidence of acute cardiopulmonary pathology. No evidence of acute left rib fractures. <Electronically signed by Trever Nair > 01/15/21 [id number]
== END 2021-01-15 17:40 | disposition home or self-care (01) ==
LOC: M ED 15:42
DX: S20.212A Contusion of left front wall of thorax, initial encounter (principal); W01.10XA Fall on same level from slipping, tripping and stumbling with subsequent striking against unspecified object, initial encounter; Y92.099 Unspecified place in other non-institutional residence as the place of occurrence of the external cause; Y93.9 Activity, unspecified; Y99.9 Unspecified external cause status; E78.00 Pure hypercholesterolemia, unspecified; I10 Essential (primary) hypertension; J44.9 Chronic obstructive pulmonary disease, unspecified; Z87.01 Personal history of pneumonia (recurrent); K57.92 Diverticulitis of intestine, part unspecified, without perforation or abscess without bleeding; Z85.72 Personal history of non-Hodgkin lymphomas; N40.0 Benign prostatic hyperplasia without lower urinary tract symptoms; E11.9 Type 2 diabetes mellitus without complications; F32.9 Major depressive disorder, single episode, unspecified; Z79.4 Long term (current) use of insulin; Z79.899 Other long term (current) drug therapy; Z88.8 Allergy status to other drugs, medicaments and biological substances

== ENCOUNTER → 2021-02-07 | Outpatient (CLI) | payer MEDICARE ==
[2021-02-07 11:10] LABS: CALCIUM LEVEL 8.9 MG/DL (8.8-10.2); CREATININE FOR GFR 1.59 MG/DL (0.70-1.30); GLOMERULAR FILTRATION RATE 45.9 (>42)
== END ==
LOC: M LAB 09:54
PROVIDERS: ATTEND Nurse Practitioner Women's Health
DX: Q61.00 Congenital renal cyst, unspecified (principal)

== ENCOUNTER → 2021-03-04 | Outpatient (CLI) | payer MEDICARE ==
[~2021-03-04] MED LIST changes: +DOXY-443 PO; -DOXY1CAP62 PO; +ISOVUE-370 76% 100ML VIAL As Ordered ONE; -LISI-898 PO; +LISI5TAB11 PO; -MAGN400T3 PO; +MAGN400T33 PO; +ONDA-84 PO; -ONDA8TAB10 PO; +POTA-149 PO; -POTA10TA14; -POTA10TA16 PO; +POTA1TAB24; -PROC10TA4 PO; +PROC10TA5 PO
== END ==
LOC: M RAD 13:23
PROVIDERS: ATTEND Nurse Practitioner Women's Health
DX: Q61.00 Congenital renal cyst, unspecified (principal)
CPT/HCPCS: 74170; Q9967

== ENCOUNTER → 2021-09-21 | Outpatient (CLI) | payer MEDICARE ==
[~2021-09-21] MED LIST changes: -D31000TA2 PO; +GASTROGRAFIN SOLUTION 30ML (Q9963) As Ordered ONE; +VITA100093 PO
== END ==
LOC: M RAD 12:30
PROVIDERS: ATTEND Internal Medicine Hematology & Oncology
DX: C85.90 Non-Hodgkin lymphoma, unspecified, unspecified site (principal)
CPT/HCPCS: 71260; 74177; Q9963; Q9967

== ENCOUNTER 2022-01-12 15:14 | Inpatient (IN) | payer MEDICARE ==
[~2022-01-12 15:14] MED LIST changes: -GASTROGRAFIN SOLUTION 30ML (Q9963) As Ordered ONE; -ISOVUE-370 76% 100ML VIAL As Ordered ONE
[2022-01-12 17:20] LABS: VENOUS BASE EXCESS -1.1 (-2.0-2.0); VENOUS HCO3 20.6 MEQ/L (23.0-27.0); VENOUS O2 SATURATION 78.1 % (60.0-80.0); VENOUS PARTIAL PRESSURE CO2 26.7 mmHg (38.0-50.0); VENOUS PARTIAL PRESSURE O2 39.2 mmHg (30.0-50.0); VENOUS PH 7.505 UNITS (7.330-7.430); VENOUS STANDARD HCO3 23.1 MEQ/L; VENOUS TOTAL CO2 21.4 MEQ/L (24.0-28.0)
[2022-01-12 17:29] LABS: BASO % 0.2 % (0.0-1.0); EOS % 0.1 % (0.0-3.0); HEMATOCRIT 35.8 % (42.0-52.0); HEMOGLOBIN 12.8 g/dl (13.5-17.5); LYMPH # 0.7 10^3/uL (1.5-5.0); MEAN CORPUSCULAR HEMOGLOBIN 29.2 pg (27.0-33.0); MEAN CORPUSCULAR HGB CONC 35.8 g/dl (32.0-36.5); MEAN CORPUSCULAR VOLUME 81.7 fl (80.0-96.0); MONO # 0.5 10^3/uL (0.0-0.8); MONO % 5.3 % (2.0-8.0); NEUTROPHILS # 8.1 10^3/uL (1.5-8.5); PLATELET COUNT, AUTOMATED 185 10^3/uL (150-450); RED BLOOD COUNT 4.38 10^6/uL (4.30-6.10); WHITE BLOOD COUNT 9.3 10^3/uL (4.0-10.0)
[2022-01-12 17:50] LABS: HEMOGLOBIN A1c 13.6 %
[2022-01-12 18:07] LABS: AMPHETAMINES LEVEL URINE NEGATIVE (NEGATIVE); BARBITURATES URINE NEGATIVE (NEGATIVE); BENZODIAZEPINES URINE NEGATIVE (NEGATIVE); CANNABINOIDS URINE NEGATIVE (NEGATIVE); COCAINE METABOLITE URINE NEGATIVE (NEGATIVE); METHADONE URINE NEGATIVE (NEGATIVE); OPIATES URINE NEGATIVE (NEGATIVE); PHENCYCLIDINE URINE NEGATIVE (NEGATIVE)
[2022-01-12 18:20] LABS: OSMOLALITY SERUM 314 MOSM/KG (280-301)
[2022-01-12 18:47] LABS: ALBUMIN 3.4 GM/DL (3.2-5.2); ALT/SGPT 28 U/L (12-78); BILIRUBIN,DIRECT 0.3 MG/DL (0.0-0.2); BILIRUBIN,TOTAL 0.8 MG/DL (0.2-1.0); BLOOD UREA NITROGEN 54 MG/DL (7-18); CARBON DIOXIDE LEVEL 23 MEQ/L (21-32); CHLORIDE LEVEL 87 MEQ/L (98-107); CREATININE FOR GFR 2.66 MG/DL (0.70-1.30); ETHYL ALCOHOL (ETHANOL) < 0.003 % (0.000-0.010); GLOMERULAR FILTRATION RATE 25.3 (>42); GLUCOSE, FASTING 769 MG/DL (70-100); LIPASE 142 U/L (73-393); PHOSPHORUS LEVEL 3.2 MG/DL (2.5-4.9); POTASSIUM SERUM 4.5 MEQ/L (3.5-5.1); SODIUM LEVEL 125 MEQ/L (136-145); TOTAL PROTEIN 6.5 GM/DL (6.4-8.2)
[2022-01-12] MEDS: NS 1,000 ML IV SCH (19:00)
[2022-01-12] MEDS ORDERED: HumuLIN R (REGULAR) INSULIN (NovoLIN R) **100U/ML** PER UNIT IV ONE (19:00)
[2022-01-12] MEDS ORDERED: NS 500 ML IV ONE ×2 (19:00→21:40)
[2022-01-12 20:06] LABS: APPEARANCE, URINE HAZY (CLEAR); BACTERIA, URINE AUTO NEGATIVE (NEGATIVE); BILIRUBIN, URINE AUTO NEGATIVE (NEGATIVE); BLOOD, URINE BLOOD NEGATIVE (NEGATIVE); COLOR, URINE YELLOW (YELLOW); GLUCOSE, URINE (UA) AUTO 3+ mg/dL (NEGATIVE); KETONE, URINE AUTO TRACE mg/dL (NEGATIVE); LEUKOCYTE ESTERASE, URINE AUTO NEGATIVE (NEGATIVE); MUCUS, URINE SMALL (NEGATIVE); NITRITE, URINE AUTO NEGATIVE (NEGATIVE); PROTEIN, URINE AUTO NEGATIVE (NEGATIVE); RBC, URINE AUTO 0 /HPF (0-3); SPECIFIC GRAVITY URINE AUTO 1.022 (1.002-1.035); SQUAMOUS EPITHELIAL CELL UR AU 0 /HPF (0-6); UROBILINOGEN, URINE AUTO 0.2 mg/dL (0.0-2.0); WBC, URINE AUTO 1 /HPF (0-3)
[2022-01-12 20:31] LABS: RSV AMPLIFICATION NEGATIVE (NEGATIVE)
[2022-01-12] MEDS ORDERED: LEVEMIR (INSULIN DETEMIR) 1 UNITS/0.01ML SC SCH (21:00)
[2022-01-12] MEDS ORDERED: INSULIN LISPRO (NovoLOG) PER UNIT SC SCH (21:00)
[2022-01-12] MEDS ORDERED: ACETAMINOPHEN TAB 650MG DOSE (2X325MG) PO PRN (21:40)
[2022-01-12] MEDS ORDERED: DEXTROSE 50% 50 ML SYRINGE IV PRN (21:40)
[2022-01-12] MEDS ORDERED: GLUCAGON INJ 1MG VIAL SC PRN (21:40)
[2022-01-12] MEDS ORDERED: GLUCOSE 4GM CHEW TABLET PO PRN (21:40)
[2022-01-12] MEDS ORDERED: HYDR-3490 PO (23:29)
[2022-01-12] MEDS ORDERED: FLUO-96 PO (23:29)
[2022-01-12] MEDS ORDERED: ATOR40TA75 PO (23:29)
[2022-01-12] MEDS ORDERED: INSUDET SC (23:29)
[2022-01-12] MEDS ORDERED: VITA100065 PO (23:29)
[2022-01-12] MEDS ORDERED: MAGN400T35 PO (23:29)
[2022-01-12] MEDS ORDERED: POTA-149 PO (23:29)
[2022-01-12] MEDS ORDERED: VITA100018 PO (23:29)
[2022-01-12] MEDS ORDERED: VITA100T29 PO (23:29)
[2022-01-12] MEDS ORDERED: FERR32TA PO (23:29)
[2022-01-12] MEDS ORDERED: VITA100093 PO (23:29)
[2022-01-12] MEDS ORDERED: INSUHUMDS SC (23:31)
[2022-01-12] MEDS ORDERED: LISI40TA4 PO (23:31)
[2022-01-12] MEDS ORDERED: HOME MED LIST COMPLETE! XX SCH (23:35)
[2022-01-13] MEDS: NS 1,000 ML IV SCH ×2 (03:00→13:39)
[2022-01-13 06:51] LABS: CALCIUM LEVEL 8.9 MG/DL (8.8-10.2); CREATININE FOR GFR 1.64 MG/DL (0.70-1.30); GLOMERULAR FILTRATION RATE 44.2 (>42); POTASSIUM SERUM 3.5 MEQ/L (3.5-5.1)
[2022-01-13] MEDS: INSULIN LISPRO (NovoLOG) PER UNIT SC SCH ×2 (07:37→11:12)
[2022-01-13] MEDS ORDERED: LEVEMIR (INSULIN DETEMIR) 1 UNITS/0.01ML SC SCH ×4 (09:00→21:00)
[2022-01-13] MEDS ORDERED: UNRESOLVED CLARIFICATION ENTRY XX SCH (09:00)
[2022-01-13 10:53] VITALS: BP 115/76
[2022-01-13] MEDS ORDERED: LEVEMIR (INSULIN DETEMIR) 1 UNITS/0.01ML SC ONE (12:45)
== END 2022-01-13 13:20 | disposition left against medical advice (07) | DRG 638 ==
LOC: EDBD 15:14 → M ED 15:14 → M ED INP 21:36 → M 4MAIN 01-13 09:30
PROVIDERS: ADMIT Internal Medicine; ATTEND Internal Medicine
DX: E11.65 Type 2 diabetes mellitus with hyperglycemia (principal); N17.9 Acute kidney failure, unspecified; R29.6 Repeated falls; I10 Essential (primary) hypertension; E11.42 Type 2 diabetes mellitus with diabetic polyneuropathy; Z79.4 Long term (current) use of insulin; Z79.899 Other long term (current) drug therapy; Z88.8 Allergy status to other drugs, medicaments and biological substances

== ENCOUNTER 2022-01-16 19:03 | Emergency (ER) | payer MEDICARE ==
[~2022-01-16] VITALS: Ht 167.6 cm; Wt 86.4 kg
[~2022-01-16 19:03] MED LIST changes: +FERR32TA PO; +FLUO-96 PO; +VITA100018 PO; +VITA100065 PO; +VITA100T29 PO
[2022-01-16 19:31] VITALS: BP 134/83
[2022-01-16] MEDS ORDERED: HumuLIN R (REGULAR) INSULIN (NovoLIN R) **100U/ML** PER UNIT IV ONE (19:35)
[2022-01-16] MEDS ORDERED: HumuLIN R (REGULAR) INSULIN (NovoLIN R) **100U/ML** PER UNIT SC STA (20:09)
[2022-01-16 20:19] LABS: BASO % 0.5 % (0.0-1.0); EOS # 0.1 10^3/uL (0.0-0.5); EOS % 1.2 % (0.0-3.0); HEMOGLOBIN 11.3 g/dl (13.5-17.5); LYMPH # 1.5 10^3/uL (1.5-5.0); MEAN CORPUSCULAR HEMOGLOBIN 28.5 pg (27.0-33.0); MEAN CORPUSCULAR HGB CONC 34.2 g/dl (32.0-36.5); MEAN CORPUSCULAR VOLUME 83.1 fl (80.0-96.0); MONO # 0.4 10^3/uL (0.0-0.8); MONO % 6.7 % (2.0-8.0); NEUTROPHILS % 65.9 % (36.0-66.0); PLATELET COUNT, AUTOMATED 198 10^3/uL (150-450); RED BLOOD COUNT 3.97 10^6/uL (4.30-6.10)
[2022-01-16 20:21] LABS: VENOUS BASE EXCESS -1.4 (-2.0-2.0); VENOUS HCO3 21.8 MEQ/L (23.0-27.0); VENOUS O2 SATURATION 95.5 % (60.0-80.0); VENOUS PARTIAL PRESSURE CO2 31.8 mmHg (38.0-50.0); VENOUS PARTIAL PRESSURE O2 74.6 mmHg (30.0-50.0); VENOUS PH 7.453 UNITS (7.330-7.430); VENOUS STANDARD HCO3 23.3 MEQ/L; VENOUS TOTAL CO2 22.7 MEQ/L (24.0-28.0)
[2022-01-16 20:28] LABS: APPEARANCE, URINE CLEAR (CLEAR); BACTERIA, URINE AUTO NEGATIVE (NEGATIVE); BILIRUBIN, URINE AUTO NEGATIVE (NEGATIVE); BLOOD, URINE BLOOD NEGATIVE (NEGATIVE); COLOR, URINE STRAW (YELLOW); GLUCOSE, URINE (UA) AUTO 3+ mg/dL (NEGATIVE); KETONE, URINE AUTO NEGATIVE (NEGATIVE); LEUKOCYTE ESTERASE, URINE AUTO NEGATIVE (NEGATIVE); NITRITE, URINE AUTO NEGATIVE (NEGATIVE); PROTEIN, URINE AUTO NEGATIVE (NEGATIVE); RBC, URINE AUTO 0 /HPF (0-3); SQUAMOUS EPITHELIAL CELL UR AU 0 /HPF (0-6); UROBILINOGEN, URINE AUTO 0.2 mg/dL (0.0-2.0); WBC, URINE AUTO 0 /HPF (0-3)
[2022-01-16 21:09] LABS: ACETONE/KETONE 2.2 MG/DL (<2.81); ALBUMIN 3.3 GM/DL (3.2-5.2); BILIRUBIN,DIRECT 0.2 MG/DL (0.0-0.2); BILIRUBIN,TOTAL 0.6 MG/DL (0.2-1.0); CALCIUM LEVEL 9.4 MG/DL (8.8-10.2); CREATININE FOR GFR 1.79 MG/DL (0.70-1.30); GLOMERULAR FILTRATION RATE 39.9 (>42); MAGNESIUM LEVEL 1.7 MG/DL (1.8-2.4); PHOSPHORUS LEVEL 2.8 MG/DL (2.5-4.9); POTASSIUM SERUM 3.8 MEQ/L (3.5-5.1); TOTAL PROTEIN 6.1 GM/DL (6.4-8.2)
[2022-01-16 22:16] LABS: HEMOGLOBIN A1c > 14.0 %
== END 2022-01-16 21:04 | disposition left against medical advice (07) ==
LOC: EDBD 19:03 → M ED 19:03
DX: E11.65 Type 2 diabetes mellitus with hyperglycemia (principal); Z53.20 Procedure and treatment not carried out because of patient's decision for unspecified reasons; I10 Essential (primary) hypertension; J44.9 Chronic obstructive pulmonary disease, unspecified; E78.5 Hyperlipidemia, unspecified; Z85.72 Personal history of non-Hodgkin lymphomas; N40.0 Benign prostatic hyperplasia without lower urinary tract symptoms; F33.9 Major depressive disorder, recurrent, unspecified; Z88.8 Allergy status to other drugs, medicaments and biological substances; Z79.4 Long term (current) use of insulin; Z79.899 Other long term (current) drug therapy
CPT/HCPCS: 36415; 80048; 80076; 81001; 82010; 82803; 83036; 83690; 83735; 83930; 84100; 85025; 93005; 93041; 94760; 99284; J1815

== ENCOUNTER → 2022-01-25 | Outpatient (CLI) | payer MEDICARE ==
[2022-01-25 15:54] LABS: CREATININE FOR GFR 1.75 MG/DL (0.70-1.30); POTASSIUM SERUM 4.5 MEQ/L (3.5-5.1)
== END ==
LOC: M LAB 13:37
PROVIDERS: ATTEND Nurse Practitioner Women's Health
DX: Q61.00 Congenital renal cyst, unspecified (principal); Z12.5 Encounter for screening for malignant neoplasm of prostate
CPT/HCPCS: 36415; 80048; G0103

== ENCOUNTER 2022-05-11 07:37 | Emergency (ER) | payer MEDICARE ==
[~2022-05-11] VITALS: Ht 15.2 cm; Wt 86.0 kg
[2022-05-11] MEDS ORDERED: NS 1,000 ML IV ONE ×2 (07:45→08:05)
[2022-05-11] MEDS ORDERED: HumuLIN R (REGULAR) INSULIN (NovoLIN R) **100U/ML** PER UNIT IV ONE (08:05)
[2022-05-11 08:16] LABS: BASO % 0.2 % (0.0-1.0); EOS % 0.4 % (0.0-3.0); HEMATOCRIT 39.8 % (42.0-52.0); HEMOGLOBIN 13.5 g/dl (13.5-17.5); LYMPH # 0.9 10^3/uL (1.5-5.0); LYMPH % 10.9 % (24.0-44.0); MEAN CORPUSCULAR HEMOGLOBIN 27.7 pg (27.0-33.0); MEAN CORPUSCULAR HGB CONC 33.9 g/dl (32.0-36.5); MEAN CORPUSCULAR VOLUME 81.6 fl (80.0-96.0); MONO # 0.7 10^3/uL (0.0-0.8); MONO % 8.9 % (2.0-8.0); NEUTROPHILS # 6.6 10^3/uL (1.5-8.5); NEUTROPHILS % 79.4 % (36.0-66.0); PLATELET COUNT, AUTOMATED 167 10^3/uL (150-450); RED BLOOD COUNT 4.88 10^6/uL (4.30-6.10); WHITE BLOOD COUNT 8.3 10^3/uL (4.0-10.0)
[2022-05-11 08:48] LABS: ALBUMIN 3.9 G/DL (3.2-5.2); BILIRUBIN,DIRECT 0.3 MG/DL (<0.4); BILIRUBIN,TOTAL 1.3 MG/DL (0.3-1.2); CALCIUM LEVEL 9.2 MG/DL (8.3-10.6); CREATININE FOR GFR 1.5 MG/DL (0.70-1.30); POTASSIUM SERUM 4.3 MMOL/L (3.5-5.1); TOTAL PROTEIN 6.6 G/DL (5.7-8.2)
[2022-05-11 09:45] VITALS: BP 118/77
[2022-05-11 13:52] LABS: HEMOGLOBIN A1c > 14.0 % (4.0-6.0)
== END 2022-05-11 10:45 | disposition left against medical advice (07) ==
LOC: EDBD 07:37 → M ED 07:37
DX: E11.65 Type 2 diabetes mellitus with hyperglycemia (principal); Z53.9 Procedure and treatment not carried out, unspecified reason; I10 Essential (primary) hypertension; R46.0 Very low level of personal hygiene; Z79.4 Long term (current) use of insulin; Z79.899 Other long term (current) drug therapy; Z88.8 Allergy status to other drugs, medicaments and biological substances
CPT/HCPCS: 80048; 80076; 83036; 83690; 85025; 96361; 96374; 99284; J1815

== ENCOUNTER 2022-05-13 11:03 | Emergency (ER) | payer MEDICARE ==
[~2022-05-13] VITALS: Ht 165.1 cm; Wt 78.1 kg
[2022-05-13 11:06] VITALS: BP 100/79
[2022-05-13] MEDS ORDERED: ACETAMINOPHEN 500 MG TAB PO ONE (13:25)
[2022-05-13] MEDS ORDERED: NS 1,000 ML IV ONE (13:30)
== END 2022-05-13 14:45 | disposition left against medical advice (07) ==
LOC: M ED 11:03
DX: M54.50 Low back pain, unspecified (principal); E11.649 Type 2 diabetes mellitus with hypoglycemia without coma; W00.9XXA Unspecified fall due to ice and snow, initial encounter; Y92.099 Unspecified place in other non-institutional residence as the place of occurrence of the external cause; Z53.9 Procedure and treatment not carried out, unspecified reason; I10 Essential (primary) hypertension; E11.40 Type 2 diabetes mellitus with diabetic neuropathy, unspecified; Z90.49 Acquired absence of other specified parts of digestive tract; G93.41 Metabolic encephalopathy; C85.10 Unspecified B-cell lymphoma, unspecified site; Z95.9 Presence of cardiac and vascular implant and graft, unspecified; Z79.4 Long term (current) use of insulin; Z79.899 Other long term (current) drug therapy; Z88.8 Allergy status to other drugs, medicaments and biological substances

== ENCOUNTER 2022-05-16 18:09 | Emergency (ER) | payer MEDICARE ==
[~2022-05-16] VITALS: Ht 167.6 cm; Wt 78.6 kg
[2022-05-16 18:10] VITALS: BP 135/76
== END 2022-05-16 20:05 | disposition left against medical advice (07) ==
LOC: M ED 18:09
DX: Z53.21 Procedure and treatment not carried out due to patient leaving prior to being seen by health care provider (principal)

== ENCOUNTER 2022-06-02 15:12 | Emergency (ER) | payer MEDICARE ==
[~2022-06-02] VITALS: Ht 167.6 cm; Wt 81.8 kg
[2022-06-02] MEDS ORDERED: NS 1,000 ML IV ONE (15:30)
[2022-06-02 15:55] LABS: VENOUS BASE EXCESS 0.6 (-2.0-2.0); VENOUS HCO3 26.5 MEQ/L (23.0-27.0); VENOUS O2 SATURATION 45.9 % (60.0-80.0); VENOUS PARTIAL PRESSURE CO2 47.5 mmHg (38.0-50.0); VENOUS PARTIAL PRESSURE O2 24.9 mmHg (30.0-50.0); VENOUS PH 7.365 UNITS (7.330-7.430); VENOUS STANDARD HCO3 23.8 MEQ/L
[2022-06-02 16:00] LABS: BASO % 0.5 % (0.0-1.0); EOS # 0.1 10^3/uL (0.0-0.5); EOS % 1.5 % (0.0-3.0); HEMATOCRIT 39.4 % (42.0-52.0); HEMOGLOBIN 13.3 g/dl (13.5-17.5); LYMPH # 1.4 10^3/uL (1.5-5.0); LYMPH % 22.3 % (24.0-44.0); MEAN CORPUSCULAR HEMOGLOBIN 28.1 pg (27.0-33.0); MEAN CORPUSCULAR HGB CONC 33.8 g/dl (32.0-36.5); MEAN CORPUSCULAR VOLUME 83.1 fl (80.0-96.0); MONO # 0.5 10^3/uL (0.0-0.8); MONO % 8.4 % (2.0-8.0); NEUTROPHILS # 4.1 10^3/uL (1.5-8.5); NEUTROPHILS % 66.8 % (36.0-66.0); PLATELET COUNT, AUTOMATED 228 10^3/uL (150-450); RED BLOOD COUNT 4.74 10^6/uL (4.30-6.10); WHITE BLOOD COUNT 6.1 10^3/uL (4.0-10.0)
[2022-06-02 16:21] LABS: MAGNESIUM LEVEL 1.8 MG/DL (1.8-2.4)
[2022-06-02 16:23] LABS: ALBUMIN 3.5 G/DL (3.2-5.2); BILIRUBIN,DIRECT 0.4 MG/DL (<0.4); BILIRUBIN,TOTAL 1.3 MG/DL (0.3-1.2); PHOSPHORUS LEVEL 3.5 MG/DL (2.4-5.1); TOTAL PROTEIN 6.6 G/DL (5.7-8.2)
[2022-06-02 16:31] LABS: RSV AMPLIFICATION NEGATIVE (NEGATIVE)
[2022-06-02 16:55] LABS: HEMOGLOBIN A1c > 14.0 % (4.0-6.0)
[2022-06-02 16:58] LABS: ACETONE/KETONE 0.6 MMOL/L (0.02-0.27)
[2022-06-02] MEDS ORDERED: LEVE1INJ5 SC (17:38)
[2022-06-02 17:45] VITALS: BP 125/79
== END 2022-06-02 17:54 | disposition home or self-care (01) ==
LOC: M ED 15:12
DX: E11.65 Type 2 diabetes mellitus with hyperglycemia (principal); Z79.4 Long term (current) use of insulin; Z79.899 Other long term (current) drug therapy; Z88.8 Allergy status to other drugs, medicaments and biological substances

== ENCOUNTER 2022-06-06 05:06 | Emergency (ER) | payer MEDICARE ==
[~2022-06-06] VITALS: Ht 167.6 cm; Wt 75.8 kg
[~2022-06-06 05:06] MED LIST changes: +LEVE1INJ5 SC
[2022-06-06] MEDS ORDERED: ACETAMINOPHEN TAB 650MG DOSE (2X325MG) PO ONE (05:25)
[2022-06-06 05:37] LABS: BASO % 0.2 % (0.0-1.0); EOS % 0.3 % (0.0-3.0); HEMATOCRIT 35.7 % (42.0-52.0); LYMPH % 10.7 % (24.0-44.0); MEAN CORPUSCULAR HEMOGLOBIN 28.2 pg (27.0-33.0); MEAN CORPUSCULAR HGB CONC 33.6 g/dl (32.0-36.5); MONO # 0.6 10^3/uL (0.0-0.8); MONO % 6.7 % (2.0-8.0); NEUTROPHILS # 7.3 10^3/uL (1.5-8.5); NEUTROPHILS % 81.7 % (36.0-66.0); PLATELET COUNT, AUTOMATED 199 10^3/uL (150-450); RED BLOOD COUNT 4.25 10^6/uL (4.30-6.10); WHITE BLOOD COUNT 8.9 10^3/uL (4.0-10.0)
[2022-06-06 05:39] LABS: VENOUS HCO3 26.3 MEQ/L (23.0-27.0); VENOUS O2 SATURATION 50.3 % (60.0-80.0); VENOUS PARTIAL PRESSURE CO2 49.3 mmHg (38.0-50.0); VENOUS PH 7.345 UNITS (7.330-7.430); VENOUS STANDARD HCO3 23.5 MEQ/L; VENOUS TOTAL CO2 27.8 MEQ/L (24.0-28.0)
[2022-06-06 06:05] LABS: LIPASE 28 U/L (12-53)
[2022-06-06 06:06] LABS: BILIRUBIN,DIRECT 0.3 MG/DL (<0.4)
[2022-06-06 06:07] LABS: CPK CREATINE PHOSPHOKINASE 186 U/L (46-171)
[2022-06-06 06:13] LABS: RSV AMPLIFICATION NEGATIVE (NEGATIVE)
[2022-06-06 06:15] VITALS: BP 162/80
[2022-06-06 06:27] LABS: ALBUMIN 3.5 G/DL (3.2-5.2); ALKALINE PHOSPHATASE 153 U/L (46-116); ALT/SGPT 17 U/L (7.0-40); AST/SGOT 19 U/L (<34); BLOOD UREA NITROGEN 30 MG/DL (9-23); CALCIUM LEVEL 9.3 MG/DL (8.3-10.6); CARBON DIOXIDE LEVEL 26 MMOL/L (20-31); CHLORIDE LEVEL 93 MMOL/L (98-107); CK-MB VALUE MASS < 1.0 NG/ML (<3.6); CREATININE FOR GFR 1.31 MG/DL (0.70-1.30); GLOMERULAR FILTRATION RATE 57.3 (>42); GLUCOSE, FASTING 464 MG/DL (74-106); MB/CK RELATIVE INDEX 0.53 (< OR =4); POTASSIUM SERUM 4.2 MMOL/L (3.5-5.1); SODIUM LEVEL 133 MMOL/L (136-145); TOTAL PROTEIN 6.3 G/DL (5.7-8.2)
[2022-06-06] MEDS ORDERED: HumuLIN R (REGULAR) INSULIN (NovoLIN R) **100U/ML** PER UNIT SC ONE (06:35)
[2022-06-06 07:09] LABS: CK-MB VALUE MASS < 1.0 NG/ML (<3.6)
[2022-06-06 07:10] LABS: CPK CREATINE PHOSPHOKINASE 176 U/L (46-171); MB/CK RELATIVE INDEX 0.56 (< OR =4)
[2022-06-06 08:19] LABS: OSMOLALITY SERUM 302 MOSM/KG (280-301)
== END 2022-06-06 07:53 | disposition home or self-care (01) ==
LOC: EDBD 05:06 → M ED 05:06
DX: E11.65 Type 2 diabetes mellitus with hyperglycemia (principal); I10 Essential (primary) hypertension; G62.9 Polyneuropathy, unspecified; R00.0 Tachycardia, unspecified; Z88.8 Allergy status to other drugs, medicaments and biological substances; Z79.4 Long term (current) use of insulin; Z79.899 Other long term (current) drug therapy
CPT/HCPCS: 36415; 71045; 80048; 80076; 81002; 82010; 82550; 82553; 82803; 83690; 83880; 83930; 84484; 85025; 87040; 87077; 87186; 87631; 93005; 93041; 94760; 99285; J1815

== ENCOUNTER 2022-06-06 18:49 | Inpatient (IN) | payer MEDICARE ==
[~2022-06-06] VITALS: Ht 167.6 cm; Wt 76.3 kg
[2022-06-06] MEDS ORDERED: ACETAMINOPHEN TAB 650MG DOSE (2X325MG) PO ONE (20:00)
[2022-06-06 20:17] LABS: VENOUS BASE EXCESS -0.7 (-2.0-2.0); VENOUS HCO3 24.4 MEQ/L (23.0-27.0); VENOUS O2 SATURATION 71.9 % (60.0-80.0); VENOUS PARTIAL PRESSURE O2 37.8 mmHg (30.0-50.0); VENOUS PH 7.382 UNITS (7.330-7.430); VENOUS STANDARD HCO3 23.3 MEQ/L; VENOUS TOTAL CO2 25.7 MEQ/L (24.0-28.0)
[2022-06-06 20:23] LABS: BASO % 0.1 % (0.0-1.0); HEMATOCRIT 34.6 % (42.0-52.0); HEMOGLOBIN 11.5 g/dl (13.5-17.5); LYMPH # 0.5 10^3/uL (1.5-5.0); LYMPH % 4.4 % (24.0-44.0); MEAN CORPUSCULAR HEMOGLOBIN 27.6 pg (27.0-33.0); MEAN CORPUSCULAR HGB CONC 33.2 g/dl (32.0-36.5); MONO # 0.8 10^3/uL (0.0-0.8); MONO % 7.1 % (2.0-8.0); NEUTROPHILS % 87.9 % (36.0-66.0); PLATELET COUNT, AUTOMATED 165 10^3/uL (150-450); RED BLOOD COUNT 4.17 10^6/uL (4.30-6.10); WHITE BLOOD COUNT 11.4 10^3/uL (4.0-10.0)
[2022-06-06 20:48] LABS: CK-MB VALUE MASS < 1.0 NG/ML (<3.6)
[2022-06-06 20:49] LABS: ETHYL ALCOHOL (ETHANOL) 0.005 % (0.000-0.010); LIPASE 20 U/L (12-53)
[2022-06-06 20:51] LABS: BILIRUBIN,DIRECT 0.5 MG/DL (<0.4)
[2022-06-06 20:57] LABS: OSMOLALITY SERUM 299 MOSM/KG (280-301)
[2022-06-06 21:57] LABS: ALBUMIN 3.6 G/DL (3.2-5.2); ALKALINE PHOSPHATASE 152 U/L (46-116); ALT/SGPT 16 U/L (7.0-40); AST/SGOT 26 U/L (<34); BILIRUBIN,TOTAL 1.6 MG/DL (0.3-1.2); BLOOD UREA NITROGEN 31 MG/DL (9-23); CALCIUM LEVEL 9.1 MG/DL (8.3-10.6); CARBON DIOXIDE LEVEL 22 MMOL/L (20-31); CHLORIDE LEVEL 93 MMOL/L (98-107); CPK CREATINE PHOSPHOKINASE 210 U/L (46-171); CREATININE FOR GFR 1.33 MG/DL (0.70-1.30); GLOMERULAR FILTRATION RATE 56.3 (>42); GLUCOSE, FASTING 473 MG/DL (74-106); MB/CK RELATIVE INDEX 0.47 (< OR =4); POTASSIUM SERUM 4.7 MMOL/L (3.5-5.1); SODIUM LEVEL 130 MMOL/L (136-145); TOTAL PROTEIN 6.3 G/DL (5.7-8.2)
[2022-06-06 22:23] LABS: HEMOGLOBIN A1c > 14.0 % (4.0-6.0)
[2022-06-06] MEDS ORDERED: VANCOMYCIN HCL 1,500 MG in NS 250 ML IV ONE (22:55)
[2022-06-06] MEDS ORDERED: HumuLIN R (REGULAR) INSULIN (NovoLIN R) **100U/ML** PER UNIT IV ONE (22:55)
[2022-06-06] MEDS ORDERED: VANCOMYCIN HCL 750 MG, VIAL MATE ADAPTER 1 EACH in D5W 250 ML IV ONE (23:00)
[2022-06-07] MEDS ORDERED: VANCOMYCIN HCL 750 MG, VIAL MATE ADAPTER 1 EACH in D5W 250 ML IV ONE ×3
[2022-06-07] MEDS ORDERED: NS 1,000 ML IV ONE ×2 (00:20→00:40)
[2022-06-07] MEDS ORDERED: GLUCOSE 4GM CHEW TABLET PO PRN (00:40)
[2022-06-07] MEDS ORDERED: GLUCAGON INJ 1MG VIAL SC PRN (00:40)
[2022-06-07] MEDS: NS 1,000 ML IV SCH ×2 (00:40→10:33)
[2022-06-07] MEDS ORDERED: DEXTROSE 50% 50ML SYRINGE IV PRN (00:40)
[2022-06-07] MEDS: INSULIN LISPRO (NovoLOG) PER UNIT SC SCH ×7 (04:35→23:50)
[2022-06-07] MEDS ORDERED: ACETAMINOPHEN 650MG SUPP PR ONE (05:20)
[2022-06-07] MEDS: ACETAMINOPHEN TAB 650MG DOSE (2X325MG) PO PRN ×2 (05:56→20:33)
[2022-06-07] MEDS ORDERED: HOME MED LIST COMPLETE! XX SCH (06:15)
[2022-06-07 07:42] LABS: ALBUMIN 2.9 G/DL (3.2-5.2); ALKALINE PHOSPHATASE 129 U/L (46-116); ALT/SGPT 13 U/L (7.0-40); AST/SGOT 17 U/L (<34); BILIRUBIN,TOTAL 1.2 MG/DL (0.3-1.2); BLOOD UREA NITROGEN 26 MG/DL (9-23); CALCIUM LEVEL 8.5 MG/DL (8.3-10.6); CARBON DIOXIDE LEVEL 22 MMOL/L (20-31); CHLORIDE LEVEL 99 MMOL/L (98-107); CREATININE FOR GFR 1.11 MG/DL (0.70-1.30); GLOMERULAR FILTRATION RATE > 60.0 (>42); GLUCOSE, FASTING 279 MG/DL (74-106); POTASSIUM SERUM 3.4 MMOL/L (3.5-5.1); SODIUM LEVEL 134 MMOL/L (136-145); TOTAL PROTEIN 5.5 G/DL (5.7-8.2)
[2022-06-07] MEDS: HEPARIN SOD (PORCINE) 5000UNITS/ML 1ML VIAL/SYRINGE SC SCH ×2 (08:37→20:32)
[2022-06-07] MEDS: VANCOMYCIN HCL 750 MG, VIAL MATE ADAPTER 1 EACH in D5W 250 ML IV SCH ×2 (08:38→20:31)
[2022-06-07] MEDS ORDERED: POTASSIUM CHLORIDE 10% LIQ 20MEQ/15ML UDC PO ONE (10:00)
[2022-06-07] MEDS ORDERED: ceFAZolin SOD 2 GM in IV 1 EA IV SCH (14:00)
[2022-06-07] MEDS ORDERED: FLUID PLACE HOLDER IV SCH (14:30)
[2022-06-07] MEDS ORDERED: VANCOMYCIN HCL IV SCH (14:30)
[2022-06-07] MEDS ORDERED: ISOVUE-370 76% 100ML VIAL As Ordered ONE (16:06)
[2022-06-07] MEDS: ATORVASTATIN 20 MG TAB PO SCH (18:38)
[2022-06-07] MEDS: PYRIDOXINE 50 MG TAB PO SCH (18:40)
[2022-06-07] MEDS: FLUoxetine 20MG CAP PO SCH (18:41)
[2022-06-07] MEDS: CYANOCOBALAMIN 500 MCG TAB PO SCH (18:41)
[2022-06-07] MEDS: POTASSIUM CHLORIDE 10MEQ SR TABLET PO SCH (18:41)
[2022-06-07] MEDS: lisinopriL 40MG TAB PO SCH (18:41)
[2022-06-07] MEDS: LEVEMIR (INSULIN DETEMIR) 1 UNITS/0.01ML SC SCH (20:30)
[2022-06-07] MEDS: MAGNESIUM OXIDE 400MG TAB (MAG-OX) PO SCH (20:32)
[2022-06-07 22:00] VITALS: BP 133/87
[2022-06-08 02:00] VITALS: BP 115/70
[2022-06-08] MEDS: INSULIN LISPRO (NovoLOG) PER UNIT SC SCH ×5 (04:23→20:29)
[2022-06-08 06:00] VITALS: BP 126/69
[2022-06-08 07:39] LABS: BASO % 0.1 % (0.0-1.0); EOS % 0.1 % (0.0-3.0); HEMATOCRIT 31.7 % (42.0-52.0); HEMOGLOBIN 10.5 g/dl (13.5-17.5); LYMPH # 0.6 10^3/uL (1.5-5.0); LYMPH % 7.8 % (24.0-44.0); MEAN CORPUSCULAR HEMOGLOBIN 27.7 pg (27.0-33.0); MEAN CORPUSCULAR HGB CONC 33.1 g/dl (32.0-36.5); MEAN CORPUSCULAR VOLUME 83.6 fl (80.0-96.0); MONO # 0.4 10^3/uL (0.0-0.8); PLATELET COUNT, AUTOMATED 131 10^3/uL (150-450); RED BLOOD COUNT 3.79 10^6/uL (4.30-6.10)
[2022-06-08 07:59] LABS: VANCOMYCIN LEVEL TROUGH 11.2 UG/ML (10.0-20.0)
[2022-06-08 08:42] LABS: ALBUMIN 2.6 G/DL (3.2-5.2); ALKALINE PHOSPHATASE 111 U/L (46-116); ALT/SGPT 14 U/L (7.0-40); AST/SGOT 22 U/L (<34); BILIRUBIN,TOTAL 0.9 MG/DL (0.3-1.2); BLOOD UREA NITROGEN 18 MG/DL (9-23); CALCIUM LEVEL 8.2 MG/DL (8.3-10.6); CARBON DIOXIDE LEVEL 27 MMOL/L (20-31); CHLORIDE LEVEL 98 MMOL/L (98-107); CREATININE FOR GFR 0.96 MG/DL (0.70-1.30); GLOMERULAR FILTRATION RATE > 60.0 (>42); GLUCOSE, FASTING 128 MG/DL (74-106); POTASSIUM SERUM 3.4 MMOL/L (3.5-5.1); SODIUM LEVEL 133 MMOL/L (136-145); TOTAL PROTEIN 5.2 G/DL (5.7-8.2)
[2022-06-08] MEDS ORDERED: VANCOMYCIN HCL 1,000 MG, VIAL MATE ADAPTER 1 EACH in D5W 250 ML IV SCH (09:00)
[2022-06-08 09:22] LABS: ERYTHROCYTE SEDIMENTATION RATE 56 mm/hr (0-20)
[2022-06-08] MEDS: FLUoxetine 20MG CAP PO SCH (10:05)
[2022-06-08] MEDS: POTASSIUM CHLORIDE 10MEQ SR TABLET PO SCH (10:06)
[2022-06-08] MEDS: MAGNESIUM OXIDE 400MG TAB (MAG-OX) PO SCH ×2 (10:06→20:29)
[2022-06-08] MEDS: CYANOCOBALAMIN 500 MCG TAB PO SCH (10:06)
[2022-06-08] MEDS: HEPARIN SOD (PORCINE) 5000UNITS/ML 1ML VIAL/SYRINGE SC SCH (10:07)
[2022-06-08] MEDS: PYRIDOXINE 50 MG TAB PO SCH (10:07)
[2022-06-08] MEDS: ATORVASTATIN 20 MG TAB PO SCH (10:07)
[2022-06-08] MEDS: lisinopriL 40MG TAB PO SCH (10:07)
[2022-06-08] MEDS: LEVEMIR (INSULIN DETEMIR) 1 UNITS/0.01ML SC SCH ×2 (10:08→20:29)
[2022-06-08 10:15] VITALS: BP 125/69
[2022-06-08] MEDS ORDERED: ISOVUE-370 76% 100ML VIAL As Ordered ONE (10:39)
[2022-06-08] MEDS ORDERED: POTASSIUM CHLORIDE 10MEQ SR TABLET PO ONE (10:55)
[2022-06-08] MEDS ORDERED: INSULIN LISPRO (NovoLOG) PER UNIT SC ONE (12:30)
[2022-06-08] MEDS: ceFAZolin SOD 2 GM in IV 1 EA IV SCH ×2 (14:59→22:24)
[2022-06-08 15:30] VITALS: BP 121/72
[2022-06-08] MEDS: RIVAROXABAN 10MG TAB (XARELTO) PO SCH (16:44)
[2022-06-08 18:15] VITALS: BP 119/66
[2022-06-08 20:00] VITALS: BP 117/66
[2022-06-09] VITALS: BP 123/73
[2022-06-09] MEDS: INSULIN LISPRO (NovoLOG) PER UNIT SC SCH ×6 (00:15→21:29)
[2022-06-09 04:00] VITALS: BP 122/70
[2022-06-09] MEDS: ceFAZolin SOD 2 GM in IV 1 EA IV SCH ×3 (05:55→22:30)
[2022-06-09 07:23] LABS: BASO % 0.2 % (0.0-1.0); EOS % 0.5 % (0.0-3.0); HEMATOCRIT 30.8 % (42.0-52.0); HEMOGLOBIN 10.3 g/dl (13.5-17.5); LYMPH # 0.6 10^3/uL (1.5-5.0); LYMPH % 8.8 % (24.0-44.0); MEAN CORPUSCULAR HEMOGLOBIN 27.9 pg (27.0-33.0); MEAN CORPUSCULAR HGB CONC 33.4 g/dl (32.0-36.5); MEAN CORPUSCULAR VOLUME 83.5 fl (80.0-96.0); MONO # 0.5 10^3/uL (0.0-0.8); NEUTROPHILS # 5.3 10^3/uL (1.5-8.5); NEUTROPHILS % 81.9 % (36.0-66.0); PLATELET COUNT, AUTOMATED 158 10^3/uL (150-450); RED BLOOD COUNT 3.69 10^6/uL (4.30-6.10); WHITE BLOOD COUNT 6.5 10^3/uL (4.0-10.0)
[2022-06-09 07:54] LABS: ALBUMIN 2.3 G/DL (3.2-5.2); ALKALINE PHOSPHATASE 107 U/L (46-116); ALT/SGPT 22 U/L (7.0-40); AST/SGOT 35 U/L (<34); BILIRUBIN,TOTAL 0.6 MG/DL (0.3-1.2); BLOOD UREA NITROGEN 16 MG/DL (9-23); CALCIUM LEVEL 8.3 MG/DL (8.3-10.6); CARBON DIOXIDE LEVEL 26 MMOL/L (20-31); CHLORIDE LEVEL 98 MMOL/L (98-107); CREATININE FOR GFR 0.93 MG/DL (0.70-1.30); GLOMERULAR FILTRATION RATE > 60.0 (>42); GLUCOSE, FASTING 77 MG/DL (74-106); POTASSIUM SERUM 3.1 MMOL/L (3.5-5.1); SODIUM LEVEL 136 MMOL/L (136-145); TOTAL PROTEIN 4.9 G/DL (5.7-8.2)
[2022-06-09] MEDS ORDERED: POTASSIUM CHLORIDE 10MEQ SR TABLET PO ONE (08:00)
[2022-06-09] MEDS: PYRIDOXINE 50 MG TAB PO SCH (08:20)
[2022-06-09] MEDS: CYANOCOBALAMIN 500 MCG TAB PO SCH (08:20)
[2022-06-09] MEDS: ATORVASTATIN 20 MG TAB PO SCH (08:21)
[2022-06-09] MEDS: MAGNESIUM OXIDE 400MG TAB (MAG-OX) PO SCH ×2 (08:21→21:27)
[2022-06-09] MEDS: lisinopriL 40MG TAB PO SCH (08:22)
[2022-06-09] MEDS: POTASSIUM CHLORIDE 10MEQ SR TABLET PO SCH (08:22)
[2022-06-09] MEDS: LEVEMIR (INSULIN DETEMIR) 1 UNITS/0.01ML SC SCH ×2 (08:23→21:28)
[2022-06-09] MEDS: FLUoxetine 20MG CAP PO SCH (08:23)
[2022-06-09 09:28] LABS: MAGNESIUM LEVEL 1.6 MG/DL (1.8-2.4)
[2022-06-09 10:00] VITALS: BP 118/69
[2022-06-09] MEDS ORDERED: LEVEMIR (INSULIN DETEMIR) 1 UNITS/0.01ML SC ONE (10:45)
[2022-06-09] MEDS ORDERED: MAGNESIUM OXIDE 400MG TAB (MAG-OX) PO ONE (10:50)
[2022-06-09 11:09] LABS: PHOSPHORUS LEVEL 2.6 MG/DL (2.4-5.1)
[2022-06-09 14:00] VITALS: BP 123/75
[2022-06-09] MEDS: RIVAROXABAN 10MG TAB (XARELTO) PO SCH (17:45)
[2022-06-09 22:00] VITALS: BP 123/75
[2022-06-09] MEDS: ACETAMINOPHEN TAB 650MG DOSE (2X325MG) PO PRN (22:30)
[2022-06-10] MEDS: INSULIN LISPRO (NovoLOG) PER UNIT SC SCH ×6 (00:10→21:13)
[2022-06-10 02:00] VITALS: BP 119/68
[2022-06-10] MEDS: ceFAZolin SOD 2 GM in IV 1 EA IV SCH ×3 (05:44→21:12)
[2022-06-10 06:00] VITALS: BP 115/70
[2022-06-10 06:50] LABS: BASO % 0.1 % (0.0-1.0); EOS # 0.1 10^3/uL (0.0-0.5); EOS % 1.4 % (0.0-3.0); HEMATOCRIT 31.8 % (42.0-52.0); HEMOGLOBIN 10.7 g/dl (13.5-17.5); LYMPH % 13.1 % (24.0-44.0); MEAN CORPUSCULAR HEMOGLOBIN 28.3 pg (27.0-33.0); MEAN CORPUSCULAR HGB CONC 33.6 g/dl (32.0-36.5); MEAN CORPUSCULAR VOLUME 84.1 fl (80.0-96.0); MONO # 0.6 10^3/uL (0.0-0.8); MONO % 7.6 % (2.0-8.0); NEUTROPHILS # 5.9 10^3/uL (1.5-8.5); NEUTROPHILS % 77.4 % (36.0-66.0); PLATELET COUNT, AUTOMATED 185 10^3/uL (150-450); RED BLOOD COUNT 3.78 10^6/uL (4.30-6.10); WHITE BLOOD COUNT 7.7 10^3/uL (4.0-10.0)
[2022-06-10 06:58] LABS: ERYTHROCYTE SEDIMENTATION RATE 66 mm/hr (0-20)
[2022-06-10 07:19] LABS: ALBUMIN 2.4 G/DL (3.2-5.2); ALKALINE PHOSPHATASE 118 U/L (46-116); ALT/SGPT 21 U/L (7.0-40); AST/SGOT 36 U/L (<34); BILIRUBIN,TOTAL 0.6 MG/DL (0.3-1.2); BLOOD UREA NITROGEN 15 MG/DL (9-23); CALCIUM LEVEL 8.6 MG/DL (8.3-10.6); CARBON DIOXIDE LEVEL 28 MMOL/L (20-31); CHLORIDE LEVEL 99 MMOL/L (98-107); CREATININE FOR GFR 0.89 MG/DL (0.70-1.30); GLOMERULAR FILTRATION RATE > 60.0 (>42); GLUCOSE, FASTING 75 MG/DL (74-106); POTASSIUM SERUM 3.3 MMOL/L (3.5-5.1); SODIUM LEVEL 139 MMOL/L (136-145); TOTAL PROTEIN 5.2 G/DL (5.7-8.2)
[2022-06-10] MEDS ORDERED: POTASSIUM CHLORIDE 10MEQ SR TABLET PO ONE (07:45)
[2022-06-10] MEDS: LEVEMIR (INSULIN DETEMIR) 1 UNITS/0.01ML SC SCH ×2 (09:00→21:13)
[2022-06-10] MEDS: FLUoxetine 20MG CAP PO SCH (09:05)
[2022-06-10] MEDS: lisinopriL 40MG TAB PO SCH (09:06)
[2022-06-10] MEDS: ATORVASTATIN 20 MG TAB PO SCH (09:06)
[2022-06-10] MEDS: PYRIDOXINE 50 MG TAB PO SCH (09:06)
[2022-06-10] MEDS: CYANOCOBALAMIN 500 MCG TAB PO SCH (09:07)
[2022-06-10] MEDS: MAGNESIUM OXIDE 400MG TAB (MAG-OX) PO SCH ×2 (09:09→21:14)
[2022-06-10] MEDS: POTASSIUM CHLORIDE 10MEQ SR TABLET PO SCH (09:09)
[2022-06-10] MEDS: RIVAROXABAN 10MG TAB (XARELTO) PO SCH (17:50)
[2022-06-10 18:00] VITALS: BP 129/76
[2022-06-10 20:06] VITALS: BP 122/79
[2022-06-11] MEDS: INSULIN LISPRO (NovoLOG) PER UNIT SC SCH ×6 (00:18→21:27)
[2022-06-11 04:00] VITALS: BP 123/80
[2022-06-11] MEDS: ceFAZolin SOD 2 GM in IV 1 EA IV SCH ×3 (05:45→21:28)
[2022-06-11 07:19] LABS: BASO % 0.1 % (0.0-1.0); EOS # 0.1 10^3/uL (0.0-0.5); EOS % 0.6 % (0.0-3.0); HEMATOCRIT 29.8 % (42.0-52.0); HEMOGLOBIN 9.8 g/dl (13.5-17.5); LYMPH % 11.2 % (24.0-44.0); MEAN CORPUSCULAR HEMOGLOBIN 27.6 pg (27.0-33.0); MEAN CORPUSCULAR HGB CONC 32.9 g/dl (32.0-36.5); MEAN CORPUSCULAR VOLUME 83.9 fl (80.0-96.0); MONO # 0.5 10^3/uL (0.0-0.8); MONO % 6.3 % (2.0-8.0); NEUTROPHILS # 6.8 10^3/uL (1.5-8.5); NEUTROPHILS % 80.6 % (36.0-66.0); PLATELET COUNT, AUTOMATED 197 10^3/uL (150-450); RED BLOOD COUNT 3.55 10^6/uL (4.30-6.10); WHITE BLOOD COUNT 8.5 10^3/uL (4.0-10.0)
[2022-06-11 07:49] LABS: ALBUMIN 2.1 G/DL (3.2-5.2); ALKALINE PHOSPHATASE 120 U/L (46-116); ALT/SGPT 15 U/L (7.0-40); AST/SGOT 39 U/L (<34); BILIRUBIN,TOTAL 0.7 MG/DL (0.3-1.2); BLOOD UREA NITROGEN 16 MG/DL (9-23); CALCIUM LEVEL 8.2 MG/DL (8.3-10.6); CARBON DIOXIDE LEVEL 31 MMOL/L (20-31); CHLORIDE LEVEL 97 MMOL/L (98-107); CREATININE FOR GFR 0.92 MG/DL (0.70-1.30); GLOMERULAR FILTRATION RATE > 60.0 (>42); GLUCOSE, FASTING 109 MG/DL (74-106); POTASSIUM SERUM 3.4 MMOL/L (3.5-5.1); SODIUM LEVEL 135 MMOL/L (136-145)
[2022-06-11] MEDS: SENOKOT S TAB PO SCH ×2 (09:00→21:28)
[2022-06-11] MEDS ORDERED: MIRALAX *UNIT DOSE* 17GM PACKET PO PRN (11:15)
[2022-06-11] MEDS: LEVEMIR (INSULIN DETEMIR) 1 UNITS/0.01ML SC SCH ×2 (11:33→21:27)
[2022-06-11] MEDS: CYANOCOBALAMIN 500 MCG TAB PO SCH (11:33)
[2022-06-11] MEDS: ACETAMINOPHEN TAB 650MG DOSE (2X325MG) PO PRN ×2 (11:33→18:14)
[2022-06-11] MEDS: lisinopriL 40MG TAB PO SCH (11:34)
[2022-06-11] MEDS: PYRIDOXINE 50 MG TAB PO SCH (11:34)
[2022-06-11] MEDS: ATORVASTATIN 20 MG TAB PO SCH (11:34)
[2022-06-11] MEDS: POTASSIUM CHLORIDE 10MEQ SR TABLET PO SCH (11:35)
[2022-06-11] MEDS: FLUoxetine 20MG CAP PO SCH (11:35)
[2022-06-11] MEDS: MAGNESIUM OXIDE 400MG TAB (MAG-OX) PO SCH ×2 (11:35→21:28)
[2022-06-11 14:00] VITALS: BP 111/71
[2022-06-11] MEDS: RIVAROXABAN 10MG TAB (XARELTO) PO SCH (18:14)
[2022-06-11 21:34] VITALS: BP 114/74
[2022-06-12] MEDS: ACETAMINOPHEN TAB 650MG DOSE (2X325MG) PO PRN ×2 (03:53→14:40)
[2022-06-12] MEDS: INSULIN LISPRO (NovoLOG) PER UNIT SC SCH ×6 (05:00→21:08)
[2022-06-12] MEDS: ceFAZolin SOD 2 GM in IV 1 EA IV SCH ×3 (05:37→21:10)
[2022-06-12 05:53] VITALS: BP 145/83
[2022-06-12 07:42] LABS: BASO % 0.3 % (0.0-1.0); EOS # 0.1 10^3/uL (0.0-0.5); HEMATOCRIT 30.2 % (42.0-52.0); HEMOGLOBIN 9.9 g/dl (13.5-17.5); LYMPH # 1.3 10^3/uL (1.5-5.0); LYMPH % 18.3 % (24.0-44.0); MEAN CORPUSCULAR HEMOGLOBIN 27.9 pg (27.0-33.0); MEAN CORPUSCULAR HGB CONC 32.8 g/dl (32.0-36.5); MEAN CORPUSCULAR VOLUME 85.1 fl (80.0-96.0); MONO # 0.5 10^3/uL (0.0-0.8); MONO % 7.2 % (2.0-8.0); NEUTROPHILS % 71.3 % (36.0-66.0); PLATELET COUNT, AUTOMATED 248 10^3/uL (150-450); RED BLOOD COUNT 3.55 10^6/uL (4.30-6.10)
[2022-06-12 08:14] LABS: ALBUMIN 2.1 G/DL (3.2-5.2); ALKALINE PHOSPHATASE 127 U/L (46-116); ALT/SGPT 21 U/L (7.0-40); AST/SGOT 40 U/L (<34); BILIRUBIN,TOTAL 0.6 MG/DL (0.3-1.2); BLOOD UREA NITROGEN 19 MG/DL (9-23); CALCIUM LEVEL 8.3 MG/DL (8.3-10.6); CARBON DIOXIDE LEVEL 28 MMOL/L (20-31); CHLORIDE LEVEL 98 MMOL/L (98-107); CREATININE FOR GFR 0.94 MG/DL (0.70-1.30); GLOMERULAR FILTRATION RATE > 60.0 (>42); GLUCOSE, FASTING 219 MG/DL (74-106); POTASSIUM SERUM 4.1 MMOL/L (3.5-5.1); SODIUM LEVEL 136 MMOL/L (136-145)
[2022-06-12] MEDS: LEVEMIR (INSULIN DETEMIR) 1 UNITS/0.01ML SC SCH ×2 (08:20→21:08)
[2022-06-12] MEDS: PYRIDOXINE 50 MG TAB PO SCH (08:21)
[2022-06-12] MEDS: ATORVASTATIN 20 MG TAB PO SCH (08:21)
[2022-06-12] MEDS: CYANOCOBALAMIN 500 MCG TAB PO SCH (08:21)
[2022-06-12] MEDS: FLUoxetine 20MG CAP PO SCH (08:21)
[2022-06-12] MEDS: POTASSIUM CHLORIDE 10MEQ SR TABLET PO SCH (08:22)
[2022-06-12] MEDS: lisinopriL 40MG TAB PO SCH (08:24)
[2022-06-12] MEDS: MAGNESIUM OXIDE 400MG TAB (MAG-OX) PO SCH ×2 (08:24→21:09)
[2022-06-12] MEDS: SENOKOT S TAB PO SCH ×2 (08:24→21:18)
[2022-06-12 08:30] LABS: ERYTHROCYTE SEDIMENTATION RATE 97 mm/hr (0-20)
[2022-06-12 13:44] VITALS: BP 116/67
[2022-06-12] MEDS: RIVAROXABAN 10MG TAB (XARELTO) PO SCH (17:01)
[2022-06-12 18:00] VITALS: BP 132/68
[2022-06-12 21:29] VITALS: BP 126/66
[2022-06-13] MEDS: INSULIN LISPRO (NovoLOG) PER UNIT SC SCH ×6 (00:58→21:31)
[2022-06-13 02:14] VITALS: BP 135/81
[2022-06-13] MEDS: ceFAZolin SOD 2 GM in IV 1 EA IV SCH ×3 (05:04→22:16)
[2022-06-13 05:48] VITALS: BP 133/76
[2022-06-13] MEDS: ATORVASTATIN 20 MG TAB PO SCH (09:34)
[2022-06-13] MEDS: CYANOCOBALAMIN 500 MCG TAB PO SCH (09:34)
[2022-06-13] MEDS: LEVEMIR (INSULIN DETEMIR) 1 UNITS/0.01ML SC SCH ×2 (09:34→21:31)
[2022-06-13] MEDS: lisinopriL 40MG TAB PO SCH (09:35)
[2022-06-13] MEDS: PYRIDOXINE 50 MG TAB PO SCH (09:35)
[2022-06-13] MEDS: SENOKOT S TAB PO SCH ×2 (09:35→21:30)
[2022-06-13] MEDS: POTASSIUM CHLORIDE 10MEQ SR TABLET PO SCH (09:35)
[2022-06-13] MEDS: MAGNESIUM OXIDE 400MG TAB (MAG-OX) PO SCH ×2 (09:35→21:30)
[2022-06-13] MEDS: FLUoxetine 20MG CAP PO SCH (09:35)
[2022-06-13 10:00] VITALS: BP 106/64
[2022-06-13 14:00] VITALS: BP 108/64
[2022-06-13] MEDS: RIVAROXABAN 10MG TAB (XARELTO) PO SCH (18:13)
[2022-06-13] MEDS: ACETAMINOPHEN TAB 650MG DOSE (2X325MG) PO PRN (21:43)
[2022-06-13 21:44] VITALS: BP 120/68
[2022-06-14 01:48] VITALS: BP 138/88
[2022-06-14] MEDS: ceFAZolin SOD 2 GM in IV 1 EA IV SCH ×3 (06:15→20:44)
[2022-06-14 06:18] VITALS: BP 119/63
[2022-06-14 06:23] LABS: HEMATOCRIT 31.4 % (42.0-52.0); HEMOGLOBIN 10.2 g/dl (13.5-17.5); MEAN CORPUSCULAR HEMOGLOBIN 28.3 pg (27.0-33.0); MEAN CORPUSCULAR HGB CONC 32.5 g/dl (32.0-36.5); PLATELET COUNT, AUTOMATED 342 10^3/uL (150-450); RED BLOOD COUNT 3.61 10^6/uL (4.30-6.10)
[2022-06-14 06:32] LABS: ERYTHROCYTE SEDIMENTATION RATE 89 mm/hr (0-20)
[2022-06-14 06:56] LABS: MAGNESIUM LEVEL 2.1 MG/DL (1.8-2.4)
[2022-06-14 06:57] LABS: BILIRUBIN,DIRECT 0.3 MG/DL (<0.4)
[2022-06-14 07:20] LABS: ALBUMIN 2.3 G/DL (3.2-5.2); ALKALINE PHOSPHATASE 128 U/L (46-116); ALT/SGPT 24 U/L (7.0-40); AST/SGOT 47 U/L (<34); BILIRUBIN,TOTAL 0.7 MG/DL (0.3-1.2); BLOOD UREA NITROGEN 20 MG/DL (9-23); CALCIUM LEVEL 8.8 MG/DL (8.3-10.6); CARBON DIOXIDE LEVEL 32 MMOL/L (20-31); CHLORIDE LEVEL 98 MMOL/L (98-107); GLOMERULAR FILTRATION RATE > 60.0 (>42); GLUCOSE, FASTING 192 MG/DL (74-106); PHOSPHORUS LEVEL 3.8 MG/DL (2.4-5.1); POTASSIUM SERUM 4.7 MMOL/L (3.5-5.1); SODIUM LEVEL 137 MMOL/L (136-145); TOTAL PROTEIN 5.4 G/DL (5.7-8.2)
[2022-06-14] MEDS: INSULIN LISPRO (NovoLOG) PER UNIT SC SCH ×4 (09:04→20:56)
[2022-06-14] MEDS: PYRIDOXINE 50 MG TAB PO SCH (09:05)
[2022-06-14] MEDS: CYANOCOBALAMIN 500 MCG TAB PO SCH (09:05)
[2022-06-14] MEDS: LEVEMIR (INSULIN DETEMIR) 1 UNITS/0.01ML SC SCH ×2 (09:05→20:51)
[2022-06-14] MEDS: SENOKOT S TAB PO SCH ×2 (09:05→20:44)
[2022-06-14] MEDS: lisinopriL 40MG TAB PO SCH (09:05)
[2022-06-14] MEDS: FLUoxetine 20MG CAP PO SCH (09:05)
[2022-06-14] MEDS: MAGNESIUM OXIDE 400MG TAB (MAG-OX) PO SCH (09:06)
[2022-06-14] MEDS: ATORVASTATIN 20 MG TAB PO SCH (09:06)
[2022-06-14] MEDS: POTASSIUM CHLORIDE 10MEQ SR TABLET PO SCH (09:06)
[2022-06-14] MEDS: RIVAROXABAN 10MG TAB (XARELTO) PO SCH (17:23)
[2022-06-14 20:56] VITALS: BP 124/53
[2022-06-15 02:05] VITALS: BP 126/81
[2022-06-15] MEDS: ACETAMINOPHEN TAB 650MG DOSE (2X325MG) PO PRN (02:15)
[2022-06-15] MEDS: ceFAZolin SOD 2 GM in IV 1 EA IV SCH ×3 (06:12→20:14)
[2022-06-15 06:19] VITALS: BP 144/89
[2022-06-15 08:26] VITALS: BP 134/86
[2022-06-15] MEDS: LEVEMIR (INSULIN DETEMIR) 1 UNITS/0.01ML SC SCH ×2 (08:26→20:15)
[2022-06-15] MEDS: INSULIN LISPRO (NovoLOG) PER UNIT SC SCH ×4 (08:26→20:15)
[2022-06-15] MEDS: lisinopriL 40MG TAB PO SCH (08:30)
[2022-06-15] MEDS: FLUoxetine 20MG CAP PO SCH (08:33)
[2022-06-15] MEDS: PYRIDOXINE 50 MG TAB PO SCH (08:33)
[2022-06-15] MEDS: SENOKOT S TAB PO SCH ×2 (08:33→20:14)
[2022-06-15] MEDS: ATORVASTATIN 20 MG TAB PO SCH (08:33)
[2022-06-15] MEDS: CYANOCOBALAMIN 500 MCG TAB PO SCH (08:33)
[2022-06-15 10:14] LABS: HEMATOCRIT 36.2 % (42.0-52.0); HEMOGLOBIN 11.4 g/dl (13.5-17.5); MEAN CORPUSCULAR HEMOGLOBIN 27.7 pg (27.0-33.0); MEAN CORPUSCULAR HGB CONC 31.5 g/dl (32.0-36.5); MEAN CORPUSCULAR VOLUME 87.9 fl (80.0-96.0); PLATELET COUNT, AUTOMATED 532 10^3/uL (150-450); RED BLOOD COUNT 4.12 10^6/uL (4.30-6.10); WHITE BLOOD COUNT 8.4 10^3/uL (4.0-10.0)
[2022-06-15 10:38] LABS: BLOOD UREA NITROGEN 21 MG/DL (9-23); CALCIUM LEVEL 9.3 MG/DL (8.3-10.6); CARBON DIOXIDE LEVEL 30 MMOL/L (20-31); CHLORIDE LEVEL 97 MMOL/L (98-107); CREATININE FOR GFR 0.98 MG/DL (0.70-1.30); GLOMERULAR FILTRATION RATE > 60.0 (>42); GLUCOSE, FASTING 279 MG/DL (74-106); POTASSIUM SERUM 4.5 MMOL/L (3.5-5.1); SODIUM LEVEL 136 MMOL/L (136-145)
[2022-06-15 14:00] VITALS: BP 131/78
[2022-06-15] MEDS: RIVAROXABAN 10MG TAB (XARELTO) PO SCH (18:20)
[2022-06-15 20:05] VITALS: BP 157/99
[2022-06-16 04:58] VITALS: BP 156/97
[2022-06-16] MEDS: ceFAZolin SOD 2 GM in IV 1 EA IV SCH ×3 (05:40→22:26)
[2022-06-16 06:30] LABS: HEMATOCRIT 32.3 % (42.0-52.0); HEMOGLOBIN 10.2 g/dl (13.5-17.5); MEAN CORPUSCULAR HEMOGLOBIN 27.4 pg (27.0-33.0); MEAN CORPUSCULAR HGB CONC 31.6 g/dl (32.0-36.5); MEAN CORPUSCULAR VOLUME 86.8 fl (80.0-96.0); PLATELET COUNT, AUTOMATED 441 10^3/uL (150-450); RED BLOOD COUNT 3.72 10^6/uL (4.30-6.10); WHITE BLOOD COUNT 7.6 10^3/uL (4.0-10.0)
[2022-06-16 06:53] LABS: BLOOD UREA NITROGEN 20 MG/DL (9-23); CARBON DIOXIDE LEVEL 28 MMOL/L (20-31); CHLORIDE LEVEL 100 MMOL/L (98-107); CREATININE FOR GFR 0.95 MG/DL (0.70-1.30); GLOMERULAR FILTRATION RATE > 60.0 (>42); GLUCOSE, FASTING 155 MG/DL (74-106); POTASSIUM SERUM 4.2 MMOL/L (3.5-5.1); SODIUM LEVEL 137 MMOL/L (136-145)
[2022-06-16 06:57] LABS: ERYTHROCYTE SEDIMENTATION RATE 82 mm/hr (0-20)
[2022-06-16] MEDS: INSULIN LISPRO (NovoLOG) PER UNIT SC SCH ×4 (08:17→21:15)
[2022-06-16] MEDS: LEVEMIR (INSULIN DETEMIR) 1 UNITS/0.01ML SC SCH ×2 (08:18→21:14)
[2022-06-16] MEDS: lisinopriL 40MG TAB PO SCH (08:19)
[2022-06-16] MEDS: CYANOCOBALAMIN 500 MCG TAB PO SCH (08:19)
[2022-06-16] MEDS: SENOKOT S TAB PO SCH ×2 (08:19→21:15)
[2022-06-16] MEDS: FLUoxetine 20MG CAP PO SCH (08:19)
[2022-06-16] MEDS: PYRIDOXINE 50 MG TAB PO SCH (08:20)
[2022-06-16] MEDS: ATORVASTATIN 20 MG TAB PO SCH (08:20)
[2022-06-16] MEDS: RIVAROXABAN 10MG TAB (XARELTO) PO SCH (18:27)
[2022-06-16] MEDS: ACETAMINOPHEN TAB 650MG DOSE (2X325MG) PO PRN (19:58)
[2022-06-16 22:00] VITALS: BP 158/99
[2022-06-17 02:00] VITALS: BP 126/77
[2022-06-17 06:00] VITALS: BP 130/80
[2022-06-17] MEDS: ceFAZolin SOD 2 GM in IV 1 EA IV SCH ×3 (06:20→22:13)
[2022-06-17 06:41] LABS: HEMATOCRIT 30.1 % (42.0-52.0); HEMOGLOBIN 9.7 g/dl (13.5-17.5); MEAN CORPUSCULAR HEMOGLOBIN 28.1 pg (27.0-33.0); MEAN CORPUSCULAR HGB CONC 32.2 g/dl (32.0-36.5); MEAN CORPUSCULAR VOLUME 87.2 fl (80.0-96.0); PLATELET COUNT, AUTOMATED 378 10^3/uL (150-450); RED BLOOD COUNT 3.45 10^6/uL (4.30-6.10); WHITE BLOOD COUNT 7.4 10^3/uL (4.0-10.0)
[2022-06-17 07:05] LABS: BLOOD UREA NITROGEN 22 MG/DL (9-23); CALCIUM LEVEL 8.9 MG/DL (8.3-10.6); CARBON DIOXIDE LEVEL 26 MMOL/L (20-31); CHLORIDE LEVEL 102 MMOL/L (98-107); CREATININE FOR GFR 1.08 MG/DL (0.70-1.30); GLOMERULAR FILTRATION RATE > 60.0 (>42); GLUCOSE, FASTING 201 MG/DL (74-106); POTASSIUM SERUM 4.2 MMOL/L (3.5-5.1); SODIUM LEVEL 138 MMOL/L (136-145)
[2022-06-17] MEDS: FLUoxetine 20MG CAP PO SCH (10:14)
[2022-06-17] MEDS: lisinopriL 40MG TAB PO SCH (10:14)
[2022-06-17] MEDS: PYRIDOXINE 50 MG TAB PO SCH (10:14)
[2022-06-17] MEDS: CYANOCOBALAMIN 500 MCG TAB PO SCH (10:15)
[2022-06-17] MEDS: SENOKOT S TAB PO SCH ×2 (10:15→20:20)
[2022-06-17] MEDS: ATORVASTATIN 20 MG TAB PO SCH (10:15)
[2022-06-17] MEDS: LEVEMIR (INSULIN DETEMIR) 1 UNITS/0.01ML SC SCH ×2 (10:16→20:20)
[2022-06-17] MEDS: INSULIN LISPRO (NovoLOG) PER UNIT SC SCH ×4 (10:17→20:21)
[2022-06-17] MEDS: ACETAMINOPHEN TAB 650MG DOSE (2X325MG) PO PRN (11:27)
[2022-06-17 14:00] VITALS: BP 112/73
[2022-06-17 18:00] VITALS: BP 128/76
[2022-06-17] MEDS ORDERED: INSULIN LISPRO (NovoLOG) PER UNIT SC SCH (18:00)
[2022-06-17] MEDS: RIVAROXABAN 10MG TAB (XARELTO) PO SCH (18:38)
[2022-06-17] MEDS: RAMELTEON 8 MG TAB (ROZEREM) PO PRN (20:20)
[2022-06-17 22:00] VITALS: BP 131/76
[2022-06-18 02:00] VITALS: BP 134/95
[2022-06-18 06:00] VITALS: BP 132/95
[2022-06-18] MEDS: ceFAZolin SOD 2 GM in IV 1 EA IV SCH ×3 (06:09→21:01)
[2022-06-18 06:25] LABS: HEMATOCRIT 31.5 % (42.0-52.0); HEMOGLOBIN 10.1 g/dl (13.5-17.5); MEAN CORPUSCULAR HEMOGLOBIN 28.1 pg (27.0-33.0); MEAN CORPUSCULAR HGB CONC 32.1 g/dl (32.0-36.5); MEAN CORPUSCULAR VOLUME 87.5 fl (80.0-96.0); PLATELET COUNT, AUTOMATED 372 10^3/uL (150-450); WHITE BLOOD COUNT 6.4 10^3/uL (4.0-10.0)
[2022-06-18 06:47] LABS: BLOOD UREA NITROGEN 22 MG/DL (9-23); CALCIUM LEVEL 8.9 MG/DL (8.3-10.6); CARBON DIOXIDE LEVEL 24 MMOL/L (20-31); CHLORIDE LEVEL 101 MMOL/L (98-107); CREATININE FOR GFR 0.91 MG/DL (0.70-1.30); GLOMERULAR FILTRATION RATE > 60.0 (>42); GLUCOSE, FASTING 196 MG/DL (74-106); POTASSIUM SERUM 4.3 MMOL/L (3.5-5.1); SODIUM LEVEL 137 MMOL/L (136-145)
[2022-06-18 07:01] LABS: ERYTHROCYTE SEDIMENTATION RATE 66 mm/hr (0-20)
[2022-06-18 08:00] VITALS: BP 129/75
[2022-06-18] MEDS: INSULIN LISPRO (NovoLOG) PER UNIT SC SCH ×4 (08:16→21:00)
[2022-06-18] MEDS: ATORVASTATIN 20 MG TAB PO SCH (08:16)
[2022-06-18] MEDS: lisinopriL 40MG TAB PO SCH (08:16)
[2022-06-18] MEDS: LEVEMIR (INSULIN DETEMIR) 1 UNITS/0.01ML SC SCH ×2 (08:16→21:01)
[2022-06-18] MEDS: PYRIDOXINE 50 MG TAB PO SCH (08:17)
[2022-06-18] MEDS: CYANOCOBALAMIN 500 MCG TAB PO SCH (08:17)
[2022-06-18] MEDS: SENOKOT S TAB PO SCH ×2 (08:17→21:00)
[2022-06-18] MEDS: FLUoxetine 20MG CAP PO SCH (08:17)
[2022-06-18 12:00] VITALS: BP 132/73
[2022-06-18] MEDS ORDERED: INSULIN LISPRO (NovoLOG) PER UNIT SC SCH (12:00)
[2022-06-18] MEDS: ACETAMINOPHEN TAB 650MG DOSE (2X325MG) PO PRN ×2 (13:11→20:59)
[2022-06-18] MEDS: PROPRANOLOL 10 MG TAB PO SCH ×2 (14:20→21:00)
[2022-06-18 16:00] VITALS: BP 129/73
[2022-06-18] MEDS: RIVAROXABAN 10MG TAB (XARELTO) PO SCH (17:46)
[2022-06-18] MEDS: RAMELTEON 8 MG TAB (ROZEREM) PO PRN (20:59)
[2022-06-18 22:00] VITALS: BP 123/73
[2022-06-19 02:00] VITALS: BP 126/71
[2022-06-19] MEDS: ceFAZolin SOD 2 GM in IV 1 EA IV SCH ×3 (05:32→22:48)
[2022-06-19 06:00] VITALS: BP 123/73
[2022-06-19 06:20] LABS: HEMOGLOBIN 9.9 g/dl (13.5-17.5); MEAN CORPUSCULAR HEMOGLOBIN 27.8 pg (27.0-33.0); MEAN CORPUSCULAR HGB CONC 31.9 g/dl (32.0-36.5); MEAN CORPUSCULAR VOLUME 87.1 fl (80.0-96.0); PLATELET COUNT, AUTOMATED 366 10^3/uL (150-450); RED BLOOD COUNT 3.56 10^6/uL (4.30-6.10); WHITE BLOOD COUNT 7.3 10^3/uL (4.0-10.0)
[2022-06-19 06:44] LABS: BLOOD UREA NITROGEN 23 MG/DL (9-23); CALCIUM LEVEL 8.8 MG/DL (8.3-10.6); CARBON DIOXIDE LEVEL 23 MMOL/L (20-31); CHLORIDE LEVEL 103 MMOL/L (98-107); CREATININE FOR GFR 0.88 MG/DL (0.70-1.30); GLOMERULAR FILTRATION RATE > 60.0 (>42); GLUCOSE, FASTING 169 MG/DL (74-106); POTASSIUM SERUM 4.7 MMOL/L (3.5-5.1); SODIUM LEVEL 138 MMOL/L (136-145)
[2022-06-19] MEDS: INSULIN LISPRO (NovoLOG) PER UNIT SC SCH ×4 (09:30→20:13)
[2022-06-19] MEDS: lisinopriL 40MG TAB PO SCH (09:31)
[2022-06-19] MEDS: FLUoxetine 20MG CAP PO SCH (09:31)
[2022-06-19] MEDS: LEVEMIR (INSULIN DETEMIR) 1 UNITS/0.01ML SC SCH ×2 (09:31→20:12)
[2022-06-19] MEDS: PYRIDOXINE 50 MG TAB PO SCH (09:32)
[2022-06-19] MEDS: CYANOCOBALAMIN 500 MCG TAB PO SCH (09:32)
[2022-06-19] MEDS: PROPRANOLOL 10 MG TAB PO SCH ×2 (09:32→20:13)
[2022-06-19] MEDS: ATORVASTATIN 20 MG TAB PO SCH (09:32)
[2022-06-19] MEDS: SENOKOT S TAB PO SCH ×2 (09:33→20:14)
[2022-06-19 10:00] VITALS: BP 132/80
[2022-06-19 14:00] VITALS: BP 93/59
[2022-06-19] MEDS: RIVAROXABAN 10MG TAB (XARELTO) PO SCH (17:37)
[2022-06-19] MEDS: RAMELTEON 8 MG TAB (ROZEREM) PO PRN (20:13)
[2022-06-19] MEDS: ACETAMINOPHEN TAB 650MG DOSE (2X325MG) PO PRN (20:13)
[2022-06-20] MEDS: ceFAZolin SOD 2 GM in IV 1 EA IV SCH ×3 (05:34→22:08)
[2022-06-20 05:41] VITALS: BP 121/66
[2022-06-20 05:59] LABS: HEMATOCRIT 34.9 % (42.0-52.0); MEAN CORPUSCULAR HEMOGLOBIN 27.9 pg (27.0-33.0); MEAN CORPUSCULAR HGB CONC 31.5 g/dl (32.0-36.5); MEAN CORPUSCULAR VOLUME 88.6 fl (80.0-96.0); PLATELET COUNT, AUTOMATED 439 10^3/uL (150-450); RED BLOOD COUNT 3.94 10^6/uL (4.30-6.10); WHITE BLOOD COUNT 7.3 10^3/uL (4.0-10.0)
[2022-06-20 06:09] LABS: ERYTHROCYTE SEDIMENTATION RATE 76 mm/hr (0-20)
[2022-06-20 06:23] LABS: BLOOD UREA NITROGEN 25 MG/DL (9-23); CARBON DIOXIDE LEVEL 28 MMOL/L (20-31); CHLORIDE LEVEL 102 MMOL/L (98-107); CREATININE FOR GFR 0.92 MG/DL (0.70-1.30); GLOMERULAR FILTRATION RATE > 60.0 (>42); GLUCOSE, FASTING 143 MG/DL (74-106); POTASSIUM SERUM 4.4 MMOL/L (3.5-5.1); SODIUM LEVEL 138 MMOL/L (136-145)
[2022-06-20] MEDS: INSULIN LISPRO (NovoLOG) PER UNIT SC SCH ×4 (07:30→20:49)
[2022-06-20] MEDS: PROPRANOLOL 10 MG TAB PO SCH ×2 (09:00→19:53)
[2022-06-20] MEDS: lisinopriL 40MG TAB PO SCH (09:00)
[2022-06-20] MEDS: LEVEMIR (INSULIN DETEMIR) 1 UNITS/0.01ML SC SCH ×2 (09:00→19:52)
[2022-06-20] MEDS: PYRIDOXINE 50 MG TAB PO SCH (10:31)
[2022-06-20] MEDS: ATORVASTATIN 20 MG TAB PO SCH (10:31)
[2022-06-20] MEDS: CYANOCOBALAMIN 500 MCG TAB PO SCH (10:32)
[2022-06-20] MEDS: FLUoxetine 20MG CAP PO SCH (10:32)
[2022-06-20] MEDS: SENOKOT S TAB PO SCH ×2 (10:35→19:52)
[2022-06-20] MEDS ORDERED: D5W/0.9% SODIUM CHLORIDE 1,000 ML IV SCH (10:45)
[2022-06-20 14:00] VITALS: BP 124/75
[2022-06-20] MEDS ORDERED: CETACAINE SPRAY 5GM As Ordered ONE (14:26)
[2022-06-20] MEDS ORDERED: LIDOCAINE VISCOUS 2% SOLN 15ML UDC As Ordered ONE (14:26)
[2022-06-20] MEDS ORDERED: LIDOCAINE 2% 100MG/5ML SDV (FOR ANES.) As Ordered ONE (14:40)
[2022-06-20] MEDS ORDERED: propofoL 200 MG/20 ML VIAL As Ordered ONE (14:40)
[2022-06-20] MEDS ORDERED: fentaNYL 100 MCG/2 ML INJECTION As Ordered ONE (14:40)
[2022-06-20] MEDS: RIVAROXABAN 10MG TAB (XARELTO) PO SCH (18:12)
[2022-06-20] MEDS: RAMELTEON 8 MG TAB (ROZEREM) PO PRN (19:52)
[2022-06-20] MEDS: ACETAMINOPHEN TAB 650MG DOSE (2X325MG) PO PRN (19:52)
[2022-06-21 00:25] VITALS: BP 120/74
[2022-06-21] MEDS: ceFAZolin SOD 2 GM in IV 1 EA IV SCH ×3 (05:01→21:31)
[2022-06-21 06:03] LABS: HEMATOCRIT 30.2 % (42.0-52.0); HEMOGLOBIN 9.9 g/dl (13.5-17.5); MEAN CORPUSCULAR HEMOGLOBIN 28.5 pg (27.0-33.0); MEAN CORPUSCULAR HGB CONC 32.8 g/dl (32.0-36.5); PLATELET COUNT, AUTOMATED 380 10^3/uL (150-450); RED BLOOD COUNT 3.47 10^6/uL (4.30-6.10); WHITE BLOOD COUNT 7.2 10^3/uL (4.0-10.0)
[2022-06-21 06:33] LABS: BLOOD UREA NITROGEN 24 MG/DL (9-23); CALCIUM LEVEL 8.7 MG/DL (8.3-10.6); CARBON DIOXIDE LEVEL 25 MMOL/L (20-31); CHLORIDE LEVEL 100 MMOL/L (98-107); CREATININE FOR GFR 0.95 MG/DL (0.70-1.30); GLOMERULAR FILTRATION RATE > 60.0 (>42); GLUCOSE, FASTING 196 MG/DL (74-106); POTASSIUM SERUM 4.4 MMOL/L (3.5-5.1); SODIUM LEVEL 137 MMOL/L (136-145)
[2022-06-21] MEDS: PYRIDOXINE 50 MG TAB PO SCH (08:40)
[2022-06-21] MEDS: LEVEMIR (INSULIN DETEMIR) 1 UNITS/0.01ML SC SCH ×2 (08:40→21:31)
[2022-06-21] MEDS: FLUoxetine 20MG CAP PO SCH (08:40)
[2022-06-21] MEDS: CYANOCOBALAMIN 500 MCG TAB PO SCH (08:40)
[2022-06-21] MEDS: INSULIN LISPRO (NovoLOG) PER UNIT SC SCH ×4 (08:40→21:00)
[2022-06-21] MEDS: ATORVASTATIN 20 MG TAB PO SCH (08:40)
[2022-06-21] MEDS: PROPRANOLOL 10 MG TAB PO SCH ×2 (08:41→21:30)
[2022-06-21] MEDS: SENOKOT S TAB PO SCH ×2 (08:41→21:28)
[2022-06-21] MEDS: lisinopriL 40MG TAB PO SCH (08:41)
[2022-06-21] MEDS: RIVAROXABAN 10MG TAB (XARELTO) PO SCH (17:59)
[2022-06-21] MEDS: RAMELTEON 8 MG TAB (ROZEREM) PO PRN (21:38)
[2022-06-21] MEDS: ACETAMINOPHEN TAB 650MG DOSE (2X325MG) PO PRN (21:39)
[2022-06-22] MEDS: ceFAZolin SOD 2 GM in IV 1 EA IV SCH ×3 (05:12→20:52)
[2022-06-22 05:56] VITALS: BP 112/61
[2022-06-22] MEDS: SENOKOT S TAB PO SCH ×2 (08:47→20:51)
[2022-06-22] MEDS: CYANOCOBALAMIN 500 MCG TAB PO SCH (08:47)
[2022-06-22] MEDS: PYRIDOXINE 50 MG TAB PO SCH (08:48)
[2022-06-22] MEDS: FLUoxetine 20MG CAP PO SCH (08:48)
[2022-06-22] MEDS: ATORVASTATIN 20 MG TAB PO SCH (08:48)
[2022-06-22] MEDS: lisinopriL 40MG TAB PO SCH (08:49)
[2022-06-22] MEDS: PROPRANOLOL 10 MG TAB PO SCH ×2 (08:49→20:51)
[2022-06-22] MEDS: INSULIN LISPRO (NovoLOG) PER UNIT SC SCH ×4 (08:49→20:21)
[2022-06-22] MEDS: LEVEMIR (INSULIN DETEMIR) 1 UNITS/0.01ML SC SCH ×2 (08:50→20:52)
[2022-06-22] MEDS: RIVAROXABAN 10MG TAB (XARELTO) PO SCH (17:50)
[2022-06-22] MEDS: RAMELTEON 8 MG TAB (ROZEREM) PO PRN (20:51)
[2022-06-22] MEDS: ACETAMINOPHEN TAB 650MG DOSE (2X325MG) PO PRN (21:12)
[2022-06-23 05:21] VITALS: BP 133/62
[2022-06-23] MEDS: ceFAZolin SOD 2 GM in IV 1 EA IV SCH ×2 (05:31→12:52)
[2022-06-23] MEDS: INSULIN LISPRO (NovoLOG) PER UNIT SC SCH ×2 (08:40→12:52)
[2022-06-23] MEDS: LEVEMIR (INSULIN DETEMIR) 1 UNITS/0.01ML SC SCH (08:40)
[2022-06-23] MEDS: FLUoxetine 20MG CAP PO SCH (08:41)
[2022-06-23] MEDS: CYANOCOBALAMIN 500 MCG TAB PO SCH (08:41)
[2022-06-23] MEDS: ATORVASTATIN 20 MG TAB PO SCH (08:41)
[2022-06-23] MEDS: SENOKOT S TAB PO SCH (08:41)
[2022-06-23 08:42] VITALS: BP 130/69
[2022-06-23] MEDS: PROPRANOLOL 10 MG TAB PO SCH (08:42)
[2022-06-23] MEDS: lisinopriL 40MG TAB PO SCH (08:42)
[2022-06-23] MEDS: PYRIDOXINE 50 MG TAB PO SCH (08:42)
[2022-06-23] MEDS ORDERED: ACET1TAB55 PO (13:01)
[2022-06-23] MEDS ORDERED: LISI40TA4 PO (13:01)
[2022-06-23] MEDS ORDERED: SENN-52 PO (13:01)
[2022-06-23] MEDS ORDERED: INSUDET SC (13:01)
[2022-06-23] MEDS ORDERED: ATOR40TA75 PO (13:01)
[2022-06-23] MEDS ORDERED: PROP10TA56 PO (13:01)
== END 2022-06-23 15:15 | disposition home health service (06) | DRG 638 ==
LOC: M ED 18:49 → M ED INP 23:56 → M MS5PR 06-07 16:30 → OBSVTOIN 06-08 22:25 → M MS5PR 06-10 19:58
PROVIDERS: ADMIT Internal Medicine; ATTEND Family Medicine
PROC: B246ZZZ Ultrasonography of Right and Left Heart (ICD-10-PCS; principal; 2022-06-08)
PROC: B246ZZ4 Ultrasonography of Right and Left Heart, Transesophageal (ICD-10-PCS; 2022-06-20)
DX: E11.10 Type 2 diabetes mellitus with ketoacidosis without coma (principal); R78.81 Bacteremia; E11.65 Type 2 diabetes mellitus with hyperglycemia; I12.9 Hypertensive chronic kidney disease with stage 1 through stage 4 chronic kidney disease, or unspecified chronic kidney disease; E11.22 Type 2 diabetes mellitus with diabetic chronic kidney disease; B95.61 Methicillin susceptible Staphylococcus aureus infection as the cause of diseases classified elsewhere; N18.30 Chronic kidney disease, stage 3 unspecified; M70.22 Olecranon bursitis, left elbow; F01.50 Vascular dementia, unspecified severity, without behavioral disturbance, psychotic disturbance, mood disturbance, and anxiety; F32.A Depression, unspecified; D50.9 Iron deficiency anemia, unspecified; E78.5 Hyperlipidemia, unspecified; E87.6 Hypokalemia; E53.8 Deficiency of other specified B group vitamins; E53.1 Pyridoxine deficiency; E83.42 Hypomagnesemia; K59.00 Constipation, unspecified; R29.6 Repeated falls; Z79.4 Long term (current) use of insulin; Z88.8 Allergy status to other drugs, medicaments and biological substances; Z79.899 Other long term (current) drug therapy

== ENCOUNTER 2022-06-26 14:36 | Emergency (ER) | payer MEDICARE ==
[~2022-06-26] VITALS: Ht 162.6 cm; Wt 75.0 kg
[~2022-06-26 14:36] MED LIST changes: +ACET1TAB55 PO; +PROP10TA56 PO; +SENN-52 PO
[2022-06-26 15:29] VITALS: BP 130/65
[2022-06-26 15:53] LABS: VENOUS BASE EXCESS -0.1 (-2.0-2.0); VENOUS HCO3 24.8 MEQ/L (23.0-27.0); VENOUS O2 SATURATION 83.7 % (60.0-80.0); VENOUS PARTIAL PRESSURE CO2 41.2 mmHg (38.0-50.0); VENOUS PARTIAL PRESSURE O2 48.8 mmHg (30.0-50.0); VENOUS PH 7.397 UNITS (7.330-7.430); VENOUS STANDARD HCO3 24.2 MEQ/L
[2022-06-26 15:57] LABS: BASO % 0.2 % (0.0-1.0); HEMATOCRIT 28.4 % (42.0-52.0); HEMOGLOBIN 9.2 g/dl (13.5-17.5); LYMPH # 0.7 10^3/uL (1.5-5.0); LYMPH % 7.4 % (24.0-44.0); MEAN CORPUSCULAR HEMOGLOBIN 28.3 pg (27.0-33.0); MEAN CORPUSCULAR HGB CONC 32.4 g/dl (32.0-36.5); MEAN CORPUSCULAR VOLUME 87.4 fl (80.0-96.0); MONO # 0.8 10^3/uL (0.0-0.8); MONO % 7.8 % (2.0-8.0); NEUTROPHILS # 8.3 10^3/uL (1.5-8.5); NEUTROPHILS % 84.2 % (36.0-66.0); PLATELET COUNT, AUTOMATED 241 10^3/uL (150-450); RED BLOOD COUNT 3.25 10^6/uL (4.30-6.10); WHITE BLOOD COUNT 9.8 10^3/uL (4.0-10.0)
[2022-06-26 16:25] LABS: ETHYL ALCOHOL (ETHANOL) 0.003 % (0.000-0.010)
[2022-06-26 16:27] LABS: ALKALINE PHOSPHATASE 102 U/L (46-116); ALT/SGPT < 9 U/L (7.0-40); AST/SGOT 18 U/L (<34); BILIRUBIN,TOTAL 1.1 MG/DL (0.3-1.2); BLOOD UREA NITROGEN 26 MG/DL (9-23); CALCIUM LEVEL 9.3 MG/DL (8.3-10.6); CARBON DIOXIDE LEVEL 27 MMOL/L (20-31); CHLORIDE LEVEL 101 MMOL/L (98-107); CREATININE FOR GFR 1.12 MG/DL (0.70-1.30); GLOMERULAR FILTRATION RATE > 60.0 (>42); GLUCOSE, FASTING 222 MG/DL (74-106); POTASSIUM SERUM 4.2 MMOL/L (3.5-5.1); SODIUM LEVEL 137 MMOL/L (136-145); TOTAL PROTEIN 6.2 G/DL (5.7-8.2)
[2022-06-27] MEDS ORDERED: SENN-23 PO (15:03)
[2022-06-27] MEDS ORDERED: INSUDET SC (15:03)
[2022-06-27] MEDS ORDERED: LISI40TA4 PO (15:03)
[2022-06-27] MEDS ORDERED: ATOR40TA75 PO (15:03)
[2022-06-27] MEDS ORDERED: PROP10TA56 PO (15:03)
[2022-06-27] MEDS ORDERED: POTA-149 PO (15:03)
[2022-06-27] MEDS ORDERED: APAP325T4 PO (15:03)
== END 2022-06-26 17:12 | disposition left against medical advice (07) ==
LOC: EDBD 14:36 → EDSEX 14:36 → M ED 14:36
DX: Z53.21 Procedure and treatment not carried out due to patient leaving prior to being seen by health care provider (principal)

== ENCOUNTER 2022-06-27 07:57 | Inpatient (IN) | payer MEDICARE ==
[~2022-06-27] VITALS: Ht 167.6 cm; Wt 79.1 kg
[2022-06-27] MEDS ORDERED: cefTRIAXone SOD 2 GM in D5W MINI-BAG PLUS 50 ML IV ONE (08:20)
[2022-06-27] MEDS ORDERED: NS 2,500 ML in IV 1 EA IV ONE (08:20)
[2022-06-27 08:38] LABS: VENOUS BASE EXCESS -1.9 (-2.0-2.0); VENOUS O2 SATURATION 97.7 % (60.0-80.0); VENOUS PARTIAL PRESSURE CO2 34.2 mmHg (38.0-50.0); VENOUS PARTIAL PRESSURE O2 104.6 mmHg (30.0-50.0); VENOUS PH 7.427 UNITS (7.330-7.430); VENOUS STANDARD HCO3 22.9 MEQ/L; VENOUS TOTAL CO2 23.1 MEQ/L (24.0-28.0)
[2022-06-27 08:40] LABS: BASO % 0.1 % (0.0-1.0); HEMATOCRIT 27.3 % (42.0-52.0); HEMOGLOBIN 8.8 g/dl (13.5-17.5); LYMPH # 0.4 10^3/uL (1.5-5.0); LYMPH % 3.4 % (24.0-44.0); MEAN CORPUSCULAR HEMOGLOBIN 27.9 pg (27.0-33.0); MEAN CORPUSCULAR HGB CONC 32.2 g/dl (32.0-36.5); MEAN CORPUSCULAR VOLUME 86.7 fl (80.0-96.0); MONO # 0.9 10^3/uL (0.0-0.8); MONO % 7.7 % (2.0-8.0); NEUTROPHILS # 9.8 10^3/uL (1.5-8.5); PLATELET COUNT, AUTOMATED 236 10^3/uL (150-450); RED BLOOD COUNT 3.15 10^6/uL (4.30-6.10); WHITE BLOOD COUNT 11.1 10^3/uL (4.0-10.0)
[2022-06-27] MEDS ORDERED: ACETAMINOPHEN TAB 650MG DOSE (2X325MG) PO ONE (08:50)
[2022-06-27 08:54] LABS: HEMOGLOBIN A1c 11.9 % (4.0-6.0)
[2022-06-27 09:06] LABS: ETHYL ALCOHOL (ETHANOL) 0.003 % (0.000-0.010)
[2022-06-27 09:08] LABS: ACETAMINOPHEN LEVEL < 2.0 UG/ML (10.0-20.0); ALKALINE PHOSPHATASE 100 U/L (46-116); ALT/SGPT < 9 U/L (7.0-40); AST/SGOT 22 U/L (<34); BILIRUBIN,DIRECT 0.5 MG/DL (<0.4); BILIRUBIN,TOTAL 1.2 MG/DL (0.3-1.2); BLOOD UREA NITROGEN 33 MG/DL (9-23); CALCIUM LEVEL 8.9 MG/DL (8.3-10.6); CARBON DIOXIDE LEVEL 24 MMOL/L (20-31); CHLORIDE LEVEL 101 MMOL/L (98-107); CPK CREATINE PHOSPHOKINASE 253 U/L (46-171); CREATININE FOR GFR 1.53 MG/DL (0.70-1.30); GLOMERULAR FILTRATION RATE 47.9 (>42); GLUCOSE, FASTING 258 MG/DL (74-106); POTASSIUM SERUM 4.2 MMOL/L (3.5-5.1); SALICYLATE LEVEL < 3.0 MG/DL (<30); SODIUM LEVEL 136 MMOL/L (136-145); TOTAL PROTEIN 6.2 G/DL (5.7-8.2)
[2022-06-27 09:11] LABS: MB/CK RELATIVE INDEX 0.39 (< OR =4)
[2022-06-27 09:15] LABS: OSMOLALITY SERUM 297 MOSM/KG (280-301); THYROID STIMULATING HORMONE 1.402 uIU/ML (0.55-4.78)
[2022-06-27 09:50] LABS: MAGNESIUM LEVEL 1.4 MG/DL (1.8-2.4)
[2022-06-27 09:53] LABS: RSV AMPLIFICATION NEGATIVE (NEGATIVE)
[2022-06-27 10:05] LABS: AMPHETAMINES LEVEL URINE NEGATIVE (NEGATIVE); BARBITURATES URINE NEGATIVE (NEGATIVE); BENZODIAZEPINES URINE NEGATIVE (NEGATIVE); CANNABINOIDS URINE NEGATIVE (NEGATIVE); COCAINE METABOLITE URINE NEGATIVE (NEGATIVE); METHADONE URINE NEGATIVE (NEGATIVE); OPIATES URINE NEGATIVE (NEGATIVE); PHENCYCLIDINE URINE NEGATIVE (NEGATIVE)
[2022-06-27] MEDS ORDERED: OLANZapine ORAL DISINTEGRATING TAB 5MG PO ONE (10:15)
[2022-06-27] MEDS ORDERED: LORazepam 2 MG/ML VIAL IV STA (12:22)
[2022-06-27] MEDS: MAG SULF 1GM/100ML (MAG RUN) 1 GM in IV 1 EA IV SCH ×3 (14:20→16:41)
[2022-06-27] MEDS ORDERED: GLUCAGON INJ 1MG VIAL SC PRN (14:50)
[2022-06-27] MEDS ORDERED: GLUCOSE 4GM CHEW TABLET PO PRN (14:50)
[2022-06-27] MEDS ORDERED: DEXTROSE 50% 50ML SYRINGE IV PRN (14:50)
[2022-06-27] MEDS ORDERED: APAP325T4 PO (15:03)
[2022-06-27] MEDS ORDERED: PROP10TA56 PO (15:03)
[2022-06-27] MEDS ORDERED: LISI40TA4 PO (15:03)
[2022-06-27] MEDS ORDERED: POTA-149 PO (15:03)
[2022-06-27] MEDS ORDERED: ATOR40TA75 PO (15:03)
[2022-06-27] MEDS ORDERED: INSUDET SC (15:03)
[2022-06-27] MEDS ORDERED: SENN-23 PO (15:03)
[2022-06-27] MEDS ORDERED: HOME MED LIST COMPLETE! XX SCH (15:05)
[2022-06-27 17:00] VITALS: BP 149/72
[2022-06-27] MEDS: ACETAMINOPHEN TAB 650MG DOSE (2X325MG) PO PRN (17:09)
[2022-06-27] MEDS ORDERED: PIPERACILLIN/TAZOBACTAM SOD 3.375 GM in D5W MINI-BAG PLUS 50 ML IV SCH (17:10)
[2022-06-27] MEDS ORDERED: VANCOMYCIN HCL 1,230 MG in IV FLUID PLACE HOLDER 1 EA IV SCH (17:10)
[2022-06-27] MEDS: OLANZapine INTRAMUSCULAR 10MG VIAL IM PRN (17:36)
[2022-06-27] MEDS: NS 1,000 ML IV SCH ×2 (17:44→20:43)
[2022-06-27] MEDS: INSULIN LISPRO (NovoLOG) PER UNIT SC SCH (18:00)
[2022-06-27] MEDS ORDERED: VANCOMYCIN HCL 1,000 MG, VIAL MATE ADAPTER 1 EACH in D5W 250 ML IV ONE (18:00)
[2022-06-27] MEDS ORDERED: VANCOMYCIN HCL 750 MG, VIAL MATE ADAPTER 1 EACH in D5W 250 ML IV ONE (19:00)
[2022-06-27 20:00] VITALS: BP 130/60
[2022-06-27] MEDS: PROPRANOLOL 10 MG TAB PO SCH (20:24)
[2022-06-27] MEDS ORDERED: ACETAMINOPHEN 1000MG 100ML IV BAG IV PRN (20:35)
[2022-06-27] MEDS: PIPERACILLIN/TAZOBACTAM SOD 4.5 GM in D5W MINI-BAG PLUS 50 ML IV SCH (20:43)
[2022-06-27] MEDS: HEPARIN SOD (PORCINE) 5000UNITS/ML 1ML VIAL/SYRINGE SC SCH (21:07)
[2022-06-27 21:14] LABS: ABG BASE EXCESS -1.1 (-2.0-2.0); ABG HCO3 22.2 MEQ/L (22.0-26.0); ABG O2 SATURATION 96.5 % (95.0-99.0); ABG PARTIAL PRESSURE O2 85.8 mmHg (75.0-100.0); ABG STANDARD HCO3 23.5 MEQ/L (22.0-26.0); ABG TOTAL CO2 23.2 MEQ/L (23.0-31.0)
[2022-06-27] MEDS ORDERED: ACETAMINOPHEN 1000MG 100ML IV BAG IV ONE (22:00)
[2022-06-28] VITALS: BP 90/52
[2022-06-28] MEDS: INSULIN LISPRO (NovoLOG) PER UNIT SC SCH ×5 (00:15→20:04)
[2022-06-28] MEDS: PIPERACILLIN/TAZOBACTAM SOD 4.5 GM in D5W MINI-BAG PLUS 50 ML IV SCH ×4 (01:15→19:57)
[2022-06-28] MEDS ORDERED: OLANZapine INTRAMUSCULAR 10MG VIAL IM ONE (03:00)
[2022-06-28 04:00] VITALS: BP 101/56
[2022-06-28 05:31] LABS: HEMATOCRIT 25.9 % (42.0-52.0); HEMOGLOBIN 8.3 g/dl (13.5-17.5); MEAN CORPUSCULAR HEMOGLOBIN 28.5 pg (27.0-33.0); PLATELET COUNT, AUTOMATED 224 10^3/uL (150-450); RED BLOOD COUNT 2.91 10^6/uL (4.30-6.10); WHITE BLOOD COUNT 7.1 10^3/uL (4.0-10.0)
[2022-06-28] MEDS: HEPARIN SOD (PORCINE) 5000UNITS/ML 1ML VIAL/SYRINGE SC SCH ×3 (05:45→21:39)
[2022-06-28 05:51] LABS: VANCOMYCIN RANDOM 12.1 UG/ML
[2022-06-28 05:52] LABS: CALCIUM LEVEL 8.2 MG/DL (8.3-10.6); CREATININE FOR GFR 1.44 MG/DL (0.70-1.30); GLOMERULAR FILTRATION RATE 51.3 (>42); POTASSIUM SERUM 3.6 MMOL/L (3.5-5.1)
[2022-06-28 06:04] LABS: C REACTIVE PROTEIN QUANTITATIV 31.1 MG/DL (<1.0)
[2022-06-28 08:00] VITALS: BP 142/64
[2022-06-28] MEDS: ATORVASTATIN 20 MG TAB PO SCH (08:36)
[2022-06-28] MEDS: FERROUS GLUCONATE 324 MG TAB PO SCH (08:36)
[2022-06-28] MEDS: CYANOCOBALAMIN 500 MCG TAB PO SCH (08:36)
[2022-06-28] MEDS: PROPRANOLOL 10 MG TAB PO SCH ×2 (08:37→20:03)
[2022-06-28] MEDS: VANCOMYCIN HCL 750 MG, VIAL MATE ADAPTER 1 EACH in D5W 250 ML IV SCH (08:37)
[2022-06-28] MEDS: FLUCONAZOLE 100 MG TAB PO SCH (08:37)
[2022-06-28] MEDS: NS 1,000 ML IV SCH ×2 (08:46→23:51)
[2022-06-28] MEDS ORDERED: cefTRIAXone SOD 2 GM in D5W MINI-BAG PLUS 50 ML IV SCH (09:00)
[2022-06-28] MEDS: FLUoxetine 20MG CAP PO SCH (09:00)
[2022-06-28] MEDS ORDERED: VANCOMYCIN HCL 750 MG, VIAL MATE ADAPTER 1 EACH in D5W 250 ML IV SCH (10:00)
[2022-06-28 12:00] VITALS: BP 152/75
[2022-06-28] MEDS: OLANZapine INTRAMUSCULAR 10MG VIAL IM PRN (12:00)
[2022-06-28] MEDS ORDERED: LORazepam 2 MG/ML VIAL IV PRN (14:45)
[2022-06-28 15:58] LABS: CRYSTALS, BODY FLUID NONE SEEN (NONE SEEN); SOURCE, BODY FLUID CRYSTALS OTHER
[2022-06-28 16:00] VITALS: BP 138/83
[2022-06-28 16:15] LABS: SOURCE, BODY FLUID LFT KNEE
[2022-06-28 16:16] LABS: SYNOVIAL FLUID COLOR YELLOW (COLORLESS)
[2022-06-28] MEDS ORDERED: OLANZapine INTRAMUSCULAR 10MG VIAL IM PRN (16:40)
[2022-06-28] MEDS: ACETAMINOPHEN TAB 650MG DOSE (2X325MG) PO PRN (17:03)
[2022-06-28] MEDS ORDERED: ACETAMINOPHEN 1000MG 100ML IV BAG IV ONE (17:45)
[2022-06-28 20:00] VITALS: BP 128/59
[2022-06-29] VITALS (7 sets, daily range): BP systolic 128–168; BP diastolic 67–99
[2022-06-29] MEDS: PIPERACILLIN/TAZOBACTAM SOD 4.5 GM in D5W MINI-BAG PLUS 50 ML IV SCH ×2 (01:33→08:32)
[2022-06-29] MEDS: HEPARIN SOD (PORCINE) 5000UNITS/ML 1ML VIAL/SYRINGE SC SCH ×3 (05:51→21:50)
[2022-06-29] MEDS: INSULIN LISPRO (NovoLOG) PER UNIT SC SCH ×4 (07:30→20:44)
[2022-06-29] MEDS: CYANOCOBALAMIN 500 MCG TAB PO SCH (08:31)
[2022-06-29] MEDS: ATORVASTATIN 20 MG TAB PO SCH (08:31)
[2022-06-29] MEDS: PROPRANOLOL 10 MG TAB PO SCH ×2 (08:31→20:44)
[2022-06-29] MEDS: FLUoxetine 20MG CAP PO SCH (08:32)
[2022-06-29] MEDS: FERROUS GLUCONATE 324 MG TAB PO SCH (08:32)
[2022-06-29] MEDS: FLUCONAZOLE 100 MG TAB PO SCH (08:32)
[2022-06-29 08:55] LABS: BASO % 0.2 % (0.0-1.0); EOS # 0.1 10^3/uL (0.0-0.5); EOS % 1.6 % (0.0-3.0); HEMATOCRIT 24.9 % (42.0-52.0); HEMOGLOBIN 7.9 g/dl (13.5-17.5); LYMPH # 0.7 10^3/uL (1.5-5.0); LYMPH % 11.4 % (24.0-44.0); MEAN CORPUSCULAR HEMOGLOBIN 28.1 pg (27.0-33.0); MEAN CORPUSCULAR HGB CONC 31.7 g/dl (32.0-36.5); MEAN CORPUSCULAR VOLUME 88.6 fl (80.0-96.0); MONO # 0.5 10^3/uL (0.0-0.8); MONO % 7.7 % (2.0-8.0); NEUTROPHILS # 4.8 10^3/uL (1.5-8.5); NEUTROPHILS % 78.8 % (36.0-66.0); PLATELET COUNT, AUTOMATED 242 10^3/uL (150-450); RED BLOOD COUNT 2.81 10^6/uL (4.30-6.10); WHITE BLOOD COUNT 6.1 10^3/uL (4.0-10.0)
[2022-06-29 09:19] LABS: C REACTIVE PROTEIN QUANTITATIV 28.5 MG/DL (<1.0); VANCOMYCIN LEVEL TROUGH 11.8 UG/ML (10.0-20.0)
[2022-06-29 09:21] LABS: CREATININE FOR GFR 1.39 MG/DL (0.70-1.30); GLOMERULAR FILTRATION RATE 53.5 (>42); POTASSIUM SERUM 3.7 MMOL/L (3.5-5.1)
[2022-06-29] MEDS ORDERED: OLANZapine INTRAMUSCULAR 10MG VIAL IM PRN (09:50)
[2022-06-29] MEDS: VANCOMYCIN HCL 750 MG, VIAL MATE ADAPTER 1 EACH in D5W 250 ML IV SCH (09:52)
[2022-06-29] MEDS: NS 1,000 ML IV SCH (13:46)
[2022-06-29] MEDS ORDERED: LIDOCAINE 2% 100MG/5ML SDV (FOR ANES.) As Ordered ONE (15:51)
[2022-06-29] MEDS ORDERED: propofoL 200 MG/20 ML VIAL As Ordered ONE (15:52)
[2022-06-29] MEDS ORDERED: fentaNYL 100 MCG/2 ML INJECTION As Ordered ONE (15:52)
[2022-06-29] MEDS ORDERED: MIDAZOLAM INJ 2MG/2ML VIAL As Ordered ONE (15:52)
[2022-06-29] MEDS ORDERED: BUPIVACAINE HCL 0.25% 30ML VIAL As Ordered ONE (16:09)
[2022-06-29] MEDS ORDERED: LABETALOL 100MG/20ML VIAL As Ordered ONE (16:13)
[2022-06-29] MEDS ORDERED: QUEtiapine FUMARATE 50MG TAB PO SCH (18:00)
[2022-06-29] MEDS ORDERED: QUEtiapine FUMARATE 25 MG TAB PO SCH (18:00)
[2022-06-29] MEDS ORDERED: VANCOMYCIN HCL 750 MG, VIAL MATE ADAPTER 1 EACH in D5W 250 ML IV SCH (22:00)
[2022-06-30] VITALS: BP 153/74
[2022-06-30] MEDS: NS 1,000 ML IV SCH (03:05)
[2022-06-30 04:00] VITALS: BP 165/76
[2022-06-30 04:48] LABS: EOS # 0.1 10^3/uL (0.0-0.5); EOS % 2.4 % (0.0-3.0); HEMATOCRIT 23.5 % (42.0-52.0); HEMOGLOBIN 7.5 g/dl (13.5-17.5); LYMPH # 1.1 10^3/uL (1.5-5.0); LYMPH % 22.6 % (24.0-44.0); MEAN CORPUSCULAR HGB CONC 31.9 g/dl (32.0-36.5); MEAN CORPUSCULAR VOLUME 87.7 fl (80.0-96.0); MONO # 0.4 10^3/uL (0.0-0.8); MONO % 8.6 % (2.0-8.0); NEUTROPHILS # 3.2 10^3/uL (1.5-8.5); PLATELET COUNT, AUTOMATED 223 10^3/uL (150-450); RED BLOOD COUNT 2.68 10^6/uL (4.30-6.10); WHITE BLOOD COUNT 4.9 10^3/uL (4.0-10.0)
[2022-06-30 05:14] LABS: MAGNESIUM LEVEL 1.5 MG/DL (1.8-2.4)
[2022-06-30 05:15] LABS: BLOOD UREA NITROGEN 22 MG/DL (9-23); CARBON DIOXIDE LEVEL 25 MMOL/L (20-31); CHLORIDE LEVEL 105 MMOL/L (98-107); CREATININE FOR GFR 1.04 MG/DL (0.70-1.30); GLOMERULAR FILTRATION RATE > 60.0 (>42); GLUCOSE, FASTING 231 MG/DL (74-106); POTASSIUM SERUM 3.5 MMOL/L (3.5-5.1); SODIUM LEVEL 138 MMOL/L (136-145)
[2022-06-30] MEDS: HEPARIN SOD (PORCINE) 5000UNITS/ML 1ML VIAL/SYRINGE SC SCH ×3 (05:34→22:07)
[2022-06-30 08:00] VITALS: BP 164/78
[2022-06-30] MEDS: MAG SULF 1GM/100ML (MAG RUN) 1 GM in IV 1 EA IV SCH ×2 (08:51→09:49)
[2022-06-30] MEDS: INSULIN LISPRO (NovoLOG) PER UNIT SC SCH ×4 (08:51→20:38)
[2022-06-30] MEDS: FERROUS GLUCONATE 324 MG TAB PO SCH (08:52)
[2022-06-30] MEDS: ATORVASTATIN 20 MG TAB PO SCH (08:52)
[2022-06-30] MEDS: PROPRANOLOL 10 MG TAB PO SCH ×2 (08:52→20:37)
[2022-06-30] MEDS: CYANOCOBALAMIN 500 MCG TAB PO SCH (08:52)
[2022-06-30] MEDS: FLUCONAZOLE 100 MG TAB PO SCH (08:52)
[2022-06-30] MEDS: FLUoxetine 20MG CAP PO SCH (08:52)
[2022-06-30] MEDS: ceFAZolin SOD 2 GM in IV 1 EA IV SCH ×2 (11:15→18:19)
[2022-06-30 12:00] VITALS: BP 159/96
[2022-06-30] MEDS: ACETAMINOPHEN TAB 650MG DOSE (2X325MG) PO PRN (13:20)
[2022-06-30 16:00] VITALS: BP 162/87
[2022-06-30] MEDS: QUEtiapine FUMARATE 50MG TAB PO SCH (17:07)
[2022-06-30 20:23] VITALS: BP 152/83
[2022-06-30] MEDS: MAGNESIUM OXIDE 400MG TAB (MAG-OX) PO SCH (20:38)
[2022-06-30] MEDS: LEVEMIR (INSULIN DETEMIR) 1 UNITS/0.01ML SC SCH (20:39)
[2022-07-01] VITALS (7 sets, daily range): BP systolic 111–200; BP diastolic 72–113
[2022-07-01] MEDS: ceFAZolin SOD 2 GM in IV 1 EA IV SCH ×3 (01:41→17:42)
[2022-07-01 05:36] LABS: BASO % 0.2 % (0.0-1.0); EOS # 0.1 10^3/uL (0.0-0.5); EOS % 2.6 % (0.0-3.0); HEMATOCRIT 25.2 % (42.0-52.0); LYMPH # 1.1 10^3/uL (1.5-5.0); LYMPH % 21.8 % (24.0-44.0); MEAN CORPUSCULAR HEMOGLOBIN 27.6 pg (27.0-33.0); MEAN CORPUSCULAR HGB CONC 31.7 g/dl (32.0-36.5); MEAN CORPUSCULAR VOLUME 86.9 fl (80.0-96.0); MONO # 0.6 10^3/uL (0.0-0.8); MONO % 10.8 % (2.0-8.0); NEUTROPHILS # 3.2 10^3/uL (1.5-8.5); NEUTROPHILS % 63.4 % (36.0-66.0); PLATELET COUNT, AUTOMATED 253 10^3/uL (150-450); WHITE BLOOD COUNT 5.1 10^3/uL (4.0-10.0)
[2022-07-01] MEDS: HEPARIN SOD (PORCINE) 5000UNITS/ML 1ML VIAL/SYRINGE SC SCH ×3 (06:35→22:08)
[2022-07-01 06:44] LABS: BLOOD UREA NITROGEN 15 MG/DL (9-23); CALCIUM LEVEL 8.3 MG/DL (8.3-10.6); CARBON DIOXIDE LEVEL 27 MMOL/L (20-31); CHLORIDE LEVEL 104 MMOL/L (98-107); CREATININE FOR GFR 0.93 MG/DL (0.70-1.30); GLOMERULAR FILTRATION RATE > 60.0 (>42); GLUCOSE, FASTING 142 MG/DL (74-106); MAGNESIUM LEVEL 1.7 MG/DL (1.8-2.4); POTASSIUM SERUM 3.8 MMOL/L (3.5-5.1); SODIUM LEVEL 139 MMOL/L (136-145)
[2022-07-01] MEDS: MAG SULF 1GM/100ML (MAG RUN) 1 GM in IV 1 EA IV SCH ×2 (07:57→10:13)
[2022-07-01] MEDS: INSULIN LISPRO (NovoLOG) PER UNIT SC SCH ×4 (07:58→19:54)
[2022-07-01] MEDS: MAGNESIUM OXIDE 400MG TAB (MAG-OX) PO SCH ×2 (10:14→19:54)
[2022-07-01] MEDS: FLUoxetine 20MG CAP PO SCH (10:14)
[2022-07-01] MEDS: FERROUS GLUCONATE 324 MG TAB PO SCH (10:14)
[2022-07-01] MEDS: CYANOCOBALAMIN 500 MCG TAB PO SCH (10:14)
[2022-07-01] MEDS: FLUCONAZOLE 100 MG TAB PO SCH (10:14)
[2022-07-01] MEDS: ATORVASTATIN 20 MG TAB PO SCH (10:15)
[2022-07-01] MEDS: PROPRANOLOL 10 MG TAB PO SCH (10:17)
[2022-07-01] MEDS: lisinopriL 40MG TAB PO SCH (13:10)
[2022-07-01] MEDS: CARVedilol 6.25 MG TAB PO SCH ×2 (14:51→19:53)
[2022-07-01] MEDS: QUEtiapine FUMARATE 50MG TAB PO SCH (17:42)
[2022-07-01] MEDS: LEVEMIR (INSULIN DETEMIR) 1 UNITS/0.01ML SC SCH (19:54)
[2022-07-01] MEDS: ACETAMINOPHEN TAB 650MG DOSE (2X325MG) PO PRN (19:55)
[2022-07-02] MEDS: ceFAZolin SOD 2 GM in IV 1 EA IV SCH ×3 (01:15→17:44)
[2022-07-02] MEDS: HEPARIN SOD (PORCINE) 5000UNITS/ML 1ML VIAL/SYRINGE SC SCH ×3 (05:36→21:43)
[2022-07-02 05:49] LABS: BASO % 0.2 % (0.0-1.0); EOS # 0.1 10^3/uL (0.0-0.5); EOS % 3.1 % (0.0-3.0); HEMATOCRIT 24.4 % (42.0-52.0); HEMOGLOBIN 7.9 g/dl (13.5-17.5); LYMPH # 1.1 10^3/uL (1.5-5.0); LYMPH % 23.9 % (24.0-44.0); MEAN CORPUSCULAR HEMOGLOBIN 28.3 pg (27.0-33.0); MEAN CORPUSCULAR HGB CONC 32.4 g/dl (32.0-36.5); MEAN CORPUSCULAR VOLUME 87.5 fl (80.0-96.0); MONO # 0.6 10^3/uL (0.0-0.8); MONO % 13.3 % (2.0-8.0); NEUTROPHILS # 2.6 10^3/uL (1.5-8.5); NEUTROPHILS % 57.5 % (36.0-66.0); PLATELET COUNT, AUTOMATED 254 10^3/uL (150-450); RED BLOOD COUNT 2.79 10^6/uL (4.30-6.10); WHITE BLOOD COUNT 4.5 10^3/uL (4.0-10.0)
[2022-07-02 06:11] LABS: MAGNESIUM LEVEL 1.9 MG/DL (1.8-2.4)
[2022-07-02 06:12] LABS: BLOOD UREA NITROGEN 12 MG/DL (9-23); CARBON DIOXIDE LEVEL 31 MMOL/L (20-31); CHLORIDE LEVEL 104 MMOL/L (98-107); CREATININE FOR GFR 0.93 MG/DL (0.70-1.30); GLOMERULAR FILTRATION RATE > 60.0 (>42); GLUCOSE, FASTING 128 MG/DL (74-106); POTASSIUM SERUM 3.6 MMOL/L (3.5-5.1); SODIUM LEVEL 141 MMOL/L (136-145)
[2022-07-02 08:00] VITALS: BP 133/84
[2022-07-02] MEDS: ACETAMINOPHEN TAB 650MG DOSE (2X325MG) PO PRN ×2 (09:00→21:42)
[2022-07-02] MEDS: ATORVASTATIN 20 MG TAB PO SCH (09:01)
[2022-07-02] MEDS: MAGNESIUM OXIDE 400MG TAB (MAG-OX) PO SCH ×2 (09:02→21:08)
[2022-07-02] MEDS: FLUoxetine 20MG CAP PO SCH (09:02)
[2022-07-02] MEDS: CYANOCOBALAMIN 500 MCG TAB PO SCH (09:03)
[2022-07-02] MEDS: lisinopriL 40MG TAB PO SCH (09:03)
[2022-07-02] MEDS: PROPRANOLOL 10 MG TAB PO SCH ×2 (09:04→21:22)
[2022-07-02] MEDS: FERROUS GLUCONATE 324 MG TAB PO SCH (09:04)
[2022-07-02] MEDS: FLUCONAZOLE 100 MG TAB PO SCH (09:04)
[2022-07-02] MEDS: INSULIN LISPRO (NovoLOG) PER UNIT SC SCH ×4 (09:05→21:00)
[2022-07-02] MEDS: QUEtiapine FUMARATE 50MG TAB PO SCH (17:26)
[2022-07-02] MEDS: LEVEMIR (INSULIN DETEMIR) 1 UNITS/0.01ML SC SCH (21:23)
[2022-07-03] MEDS: ceFAZolin SOD 2 GM in IV 1 EA IV SCH ×3 (01:40→18:40)
[2022-07-03] MEDS: HEPARIN SOD (PORCINE) 5000UNITS/ML 1ML VIAL/SYRINGE SC SCH ×3 (05:40→20:39)
[2022-07-03 06:27] LABS: BASO % 0.4 % (0.0-1.0); EOS # 0.1 10^3/uL (0.0-0.5); EOS % 2.4 % (0.0-3.0); HEMATOCRIT 25.5 % (42.0-52.0); HEMOGLOBIN 8.1 g/dl (13.5-17.5); LYMPH # 1.2 10^3/uL (1.5-5.0); LYMPH % 21.6 % (24.0-44.0); MEAN CORPUSCULAR HEMOGLOBIN 27.8 pg (27.0-33.0); MEAN CORPUSCULAR HGB CONC 31.8 g/dl (32.0-36.5); MEAN CORPUSCULAR VOLUME 87.6 fl (80.0-96.0); MONO # 0.6 10^3/uL (0.0-0.8); MONO % 11.3 % (2.0-8.0); NEUTROPHILS # 3.4 10^3/uL (1.5-8.5); NEUTROPHILS % 63.2 % (36.0-66.0); PLATELET COUNT, AUTOMATED 312 10^3/uL (150-450); RED BLOOD COUNT 2.91 10^6/uL (4.30-6.10); WHITE BLOOD COUNT 5.3 10^3/uL (4.0-10.0)
[2022-07-03 06:45] VITALS: BP 133/85
[2022-07-03 06:56] LABS: MAGNESIUM LEVEL 1.8 MG/DL (1.8-2.4)
[2022-07-03 06:57] LABS: BLOOD UREA NITROGEN 15 MG/DL (9-23); CALCIUM LEVEL 8.3 MG/DL (8.3-10.6); CARBON DIOXIDE LEVEL 30 MMOL/L (20-31); CHLORIDE LEVEL 105 MMOL/L (98-107); CREATININE FOR GFR 0.97 MG/DL (0.70-1.30); GLOMERULAR FILTRATION RATE > 60.0 (>42); GLUCOSE, FASTING 143 MG/DL (74-106); POTASSIUM SERUM 4.1 MMOL/L (3.5-5.1); SODIUM LEVEL 141 MMOL/L (136-145)
[2022-07-03] MEDS: INSULIN LISPRO (NovoLOG) PER UNIT SC SCH ×4 (09:08→20:39)
[2022-07-03] MEDS: FLUoxetine 20MG CAP PO SCH (09:09)
[2022-07-03] MEDS: PROPRANOLOL 10 MG TAB PO SCH ×2 (09:09→20:25)
[2022-07-03] MEDS: lisinopriL 40MG TAB PO SCH (09:09)
[2022-07-03] MEDS: FLUCONAZOLE 100 MG TAB PO SCH (09:09)
[2022-07-03] MEDS: CYANOCOBALAMIN 500 MCG TAB PO SCH (09:09)
[2022-07-03] MEDS: FERROUS GLUCONATE 324 MG TAB PO SCH (09:10)
[2022-07-03] MEDS: ATORVASTATIN 20 MG TAB PO SCH (09:10)
[2022-07-03] MEDS: MAGNESIUM OXIDE 400MG TAB (MAG-OX) PO SCH ×2 (09:10→20:25)
[2022-07-03 14:00] VITALS: BP 146/91
[2022-07-03] MEDS: QUEtiapine FUMARATE 50MG TAB PO SCH (18:40)
[2022-07-03 19:29] VITALS: BP 151/88
[2022-07-03] MEDS: ACETAMINOPHEN TAB 650MG DOSE (2X325MG) PO PRN (20:26)
[2022-07-03] MEDS: LEVEMIR (INSULIN DETEMIR) 1 UNITS/0.01ML SC SCH (20:38)
[2022-07-04] MEDS: ceFAZolin SOD 2 GM in IV 1 EA IV SCH ×3 (01:54→18:22)
[2022-07-04] MEDS: HEPARIN SOD (PORCINE) 5000UNITS/ML 1ML VIAL/SYRINGE SC SCH ×3 (05:57→20:21)
[2022-07-04 06:00] VITALS: BP 142/78
[2022-07-04 06:37] LABS: BASO % 0.2 % (0.0-1.0); EOS # 0.1 10^3/uL (0.0-0.5); EOS % 2.4 % (0.0-3.0); HEMATOCRIT 27.6 % (42.0-52.0); HEMOGLOBIN 8.6 g/dl (13.5-17.5); LYMPH # 1.2 10^3/uL (1.5-5.0); LYMPH % 24.1 % (24.0-44.0); MEAN CORPUSCULAR HEMOGLOBIN 27.9 pg (27.0-33.0); MEAN CORPUSCULAR HGB CONC 31.2 g/dl (32.0-36.5); MEAN CORPUSCULAR VOLUME 89.6 fl (80.0-96.0); MONO # 0.5 10^3/uL (0.0-0.8); MONO % 9.3 % (2.0-8.0); NEUTROPHILS # 3.2 10^3/uL (1.5-8.5); PLATELET COUNT, AUTOMATED 366 10^3/uL (150-450); RED BLOOD COUNT 3.08 10^6/uL (4.30-6.10)
[2022-07-04 07:28] LABS: BLOOD UREA NITROGEN 16 MG/DL (9-23); CALCIUM LEVEL 8.9 MG/DL (8.3-10.6); CARBON DIOXIDE LEVEL 31 MMOL/L (20-31); CHLORIDE LEVEL 105 MMOL/L (98-107); GLOMERULAR FILTRATION RATE > 60.0 (>42); GLUCOSE, FASTING 131 MG/DL (74-106); POTASSIUM SERUM 4.5 MMOL/L (3.5-5.1); SODIUM LEVEL 143 MMOL/L (136-145)
[2022-07-04] MEDS: INSULIN LISPRO (NovoLOG) PER UNIT SC SCH ×4 (09:23→20:18)
[2022-07-04] MEDS: MAGNESIUM OXIDE 400MG TAB (MAG-OX) PO SCH ×2 (09:24→20:19)
[2022-07-04] MEDS: FLUCONAZOLE 100 MG TAB PO SCH (09:25)
[2022-07-04] MEDS: FERROUS GLUCONATE 324 MG TAB PO SCH (09:25)
[2022-07-04] MEDS: FLUoxetine 20MG CAP PO SCH (09:25)
[2022-07-04] MEDS: lisinopriL 40MG TAB PO SCH (09:25)
[2022-07-04] MEDS: CYANOCOBALAMIN 500 MCG TAB PO SCH (09:25)
[2022-07-04] MEDS: ATORVASTATIN 20 MG TAB PO SCH (09:25)
[2022-07-04] MEDS: PROPRANOLOL 10 MG TAB PO SCH ×2 (09:26→20:20)
[2022-07-04] MEDS: ACETAMINOPHEN TAB 650MG DOSE (2X325MG) PO PRN ×2 (11:03→20:20)
[2022-07-04] MEDS: QUEtiapine FUMARATE 50MG TAB PO SCH (18:22)
[2022-07-04] MEDS: LEVEMIR (INSULIN DETEMIR) 1 UNITS/0.01ML SC SCH (20:19)
[2022-07-05] MEDS: ceFAZolin SOD 2 GM in IV 1 EA IV SCH ×3 (02:20→18:38)
[2022-07-05] MEDS: HEPARIN SOD (PORCINE) 5000UNITS/ML 1ML VIAL/SYRINGE SC SCH ×3 (05:28→20:12)
[2022-07-05 06:00] VITALS: BP 128/75
[2022-07-05 06:32] LABS: BASO % 0.4 % (0.0-1.0); EOS # 0.2 10^3/uL (0.0-0.5); EOS % 3.9 % (0.0-3.0); HEMOGLOBIN 8.5 g/dl (13.5-17.5); LYMPH # 1.4 10^3/uL (1.5-5.0); LYMPH % 25.2 % (24.0-44.0); MEAN CORPUSCULAR HEMOGLOBIN 27.5 pg (27.0-33.0); MEAN CORPUSCULAR HGB CONC 30.4 g/dl (32.0-36.5); MEAN CORPUSCULAR VOLUME 90.6 fl (80.0-96.0); MONO # 0.4 10^3/uL (0.0-0.8); MONO % 8.2 % (2.0-8.0); NEUTROPHILS # 3.3 10^3/uL (1.5-8.5); NEUTROPHILS % 61.2 % (36.0-66.0); PLATELET COUNT, AUTOMATED 374 10^3/uL (150-450); RED BLOOD COUNT 3.09 10^6/uL (4.30-6.10); WHITE BLOOD COUNT 5.4 10^3/uL (4.0-10.0)
[2022-07-05 06:58] LABS: BLOOD UREA NITROGEN 19 MG/DL (9-23); CALCIUM LEVEL 8.8 MG/DL (8.3-10.6); CARBON DIOXIDE LEVEL 31 MMOL/L (20-31); CHLORIDE LEVEL 104 MMOL/L (98-107); CREATININE FOR GFR 1.09 MG/DL (0.70-1.30); GLOMERULAR FILTRATION RATE > 60.0 (>42); GLUCOSE, FASTING 155 MG/DL (74-106); POTASSIUM SERUM 4.8 MMOL/L (3.5-5.1); SODIUM LEVEL 141 MMOL/L (136-145)
[2022-07-05] MEDS: ATORVASTATIN 20 MG TAB PO SCH (09:34)
[2022-07-05] MEDS: lisinopriL 40MG TAB PO SCH (09:34)
[2022-07-05] MEDS: PROPRANOLOL 10 MG TAB PO SCH ×2 (09:34→20:10)
[2022-07-05] MEDS: CYANOCOBALAMIN 500 MCG TAB PO SCH (09:34)
[2022-07-05] MEDS: FERROUS GLUCONATE 324 MG TAB PO SCH (09:34)
[2022-07-05] MEDS: FLUoxetine 20MG CAP PO SCH (09:34)
[2022-07-05] MEDS: MAGNESIUM OXIDE 400MG TAB (MAG-OX) PO SCH ×2 (09:34→20:11)
[2022-07-05] MEDS: INSULIN LISPRO (NovoLOG) PER UNIT SC SCH ×4 (09:35→20:11)
[2022-07-05] MEDS: QUEtiapine FUMARATE 50MG TAB PO SCH (18:38)
[2022-07-05] MEDS: ACETAMINOPHEN TAB 650MG DOSE (2X325MG) PO PRN (20:10)
[2022-07-05] MEDS: LEVEMIR (INSULIN DETEMIR) 1 UNITS/0.01ML SC SCH (20:11)
[2022-07-06] MEDS: ceFAZolin SOD 2 GM in IV 1 EA IV SCH ×3 (01:34→18:36)
[2022-07-06] MEDS: ACETAMINOPHEN TAB 650MG DOSE (2X325MG) PO PRN ×3 (01:34→22:00)
[2022-07-06 05:33] LABS: BASO % 0.1 % (0.0-1.0); EOS # 0.2 10^3/uL (0.0-0.5); EOS % 2.1 % (0.0-3.0); HEMATOCRIT 26.6 % (42.0-52.0); HEMOGLOBIN 8.2 g/dl (13.5-17.5); LYMPH # 1.6 10^3/uL (1.5-5.0); LYMPH % 21.5 % (24.0-44.0); MEAN CORPUSCULAR HEMOGLOBIN 27.6 pg (27.0-33.0); MEAN CORPUSCULAR HGB CONC 30.8 g/dl (32.0-36.5); MEAN CORPUSCULAR VOLUME 89.6 fl (80.0-96.0); MONO # 0.5 10^3/uL (0.0-0.8); MONO % 7.1 % (2.0-8.0); NEUTROPHILS # 4.9 10^3/uL (1.5-8.5); NEUTROPHILS % 68.5 % (36.0-66.0); PLATELET COUNT, AUTOMATED 374 10^3/uL (150-450); RED BLOOD COUNT 2.97 10^6/uL (4.30-6.10); WHITE BLOOD COUNT 7.2 10^3/uL (4.0-10.0)
[2022-07-06] MEDS: HEPARIN SOD (PORCINE) 5000UNITS/ML 1ML VIAL/SYRINGE SC SCH ×3 (05:57→22:00)
[2022-07-06 05:59] LABS: BLOOD UREA NITROGEN 17 MG/DL (9-23); CALCIUM LEVEL 8.5 MG/DL (8.3-10.6); CARBON DIOXIDE LEVEL 31 MMOL/L (20-31); CHLORIDE LEVEL 107 MMOL/L (98-107); CREATININE FOR GFR 1.04 MG/DL (0.70-1.30); GLOMERULAR FILTRATION RATE > 60.0 (>42); GLUCOSE, FASTING 94 MG/DL (74-106); POTASSIUM SERUM 4.7 MMOL/L (3.5-5.1); SODIUM LEVEL 143 MMOL/L (136-145)
[2022-07-06 06:33] VITALS: BP 136/80
[2022-07-06] MEDS: INSULIN LISPRO (NovoLOG) PER UNIT SC SCH ×4 (07:30→22:00)
[2022-07-06] MEDS: ATORVASTATIN 20 MG TAB PO SCH (10:18)
[2022-07-06] MEDS: PROPRANOLOL 10 MG TAB PO SCH ×2 (10:19→22:01)
[2022-07-06] MEDS: CYANOCOBALAMIN 500 MCG TAB PO SCH (10:19)
[2022-07-06] MEDS: lisinopriL 40MG TAB PO SCH (10:20)
[2022-07-06] MEDS: MAGNESIUM OXIDE 400MG TAB (MAG-OX) PO SCH ×2 (10:20→22:00)
[2022-07-06] MEDS: FLUoxetine 20MG CAP PO SCH (10:20)
[2022-07-06] MEDS: FERROUS GLUCONATE 324 MG TAB PO SCH (10:22)
[2022-07-06] MEDS: methocarbamoL 500 MG TAB PO PRN ×2 (14:00→22:00)
[2022-07-06] MEDS: QUEtiapine FUMARATE 50MG TAB PO SCH (18:36)
[2022-07-06] MEDS: LEVEMIR (INSULIN DETEMIR) 1 UNITS/0.01ML SC SCH (21:59)
[2022-07-07] MEDS: ceFAZolin SOD 2 GM in IV 1 EA IV SCH ×3 (02:27→17:44)
[2022-07-07 05:51] VITALS: BP 142/68
[2022-07-07] MEDS: HEPARIN SOD (PORCINE) 5000UNITS/ML 1ML VIAL/SYRINGE SC SCH ×3 (06:08→21:20)
[2022-07-07] MEDS: ACETAMINOPHEN TAB 650MG DOSE (2X325MG) PO PRN ×2 (09:13→21:20)
[2022-07-07] MEDS: INSULIN LISPRO (NovoLOG) PER UNIT SC SCH ×4 (09:13→21:00)
[2022-07-07] MEDS: ATORVASTATIN 20 MG TAB PO SCH (09:14)
[2022-07-07] MEDS: lisinopriL 40MG TAB PO SCH (09:14)
[2022-07-07] MEDS: MAGNESIUM OXIDE 400MG TAB (MAG-OX) PO SCH ×2 (09:14→21:20)
[2022-07-07] MEDS: FERROUS GLUCONATE 324 MG TAB PO SCH (09:15)
[2022-07-07] MEDS: FLUoxetine 20MG CAP PO SCH (09:15)
[2022-07-07] MEDS: PROPRANOLOL 10 MG TAB PO SCH ×2 (09:15→21:00)
[2022-07-07] MEDS: CYANOCOBALAMIN 500 MCG TAB PO SCH (09:15)
[2022-07-07] MEDS: methocarbamoL 500 MG TAB PO PRN ×2 (09:19→21:20)
[2022-07-07] MEDS: QUEtiapine FUMARATE 50MG TAB PO SCH (17:43)
[2022-07-07] MEDS: LEVEMIR (INSULIN DETEMIR) 1 UNITS/0.01ML SC SCH (21:21)
[2022-07-07] MEDS ORDERED: traMADol 50 MG TAB PO ONE (23:10)
[2022-07-08] MEDS: ceFAZolin SOD 2 GM in IV 1 EA IV SCH ×3 (02:27→17:21)
[2022-07-08] MEDS: ACETAMINOPHEN TAB 650MG DOSE (2X325MG) PO PRN ×2 (05:04→20:14)
[2022-07-08] MEDS: HEPARIN SOD (PORCINE) 5000UNITS/ML 1ML VIAL/SYRINGE SC SCH ×3 (05:05→20:15)
[2022-07-08 06:09] VITALS: BP 118/75
[2022-07-08] MEDS: CYANOCOBALAMIN 500 MCG TAB PO SCH (07:46)
[2022-07-08] MEDS: ATORVASTATIN 20 MG TAB PO SCH (07:47)
[2022-07-08] MEDS: FLUoxetine 20MG CAP PO SCH (07:47)
[2022-07-08] MEDS: MAGNESIUM OXIDE 400MG TAB (MAG-OX) PO SCH ×2 (07:47→20:15)
[2022-07-08] MEDS: lisinopriL 40MG TAB PO SCH (07:47)
[2022-07-08] MEDS: PROPRANOLOL 10 MG TAB PO SCH ×2 (07:48→20:16)
[2022-07-08] MEDS: INSULIN LISPRO (NovoLOG) PER UNIT SC SCH ×4 (07:48→20:17)
[2022-07-08] MEDS: FERROUS GLUCONATE 324 MG TAB PO SCH (07:49)
[2022-07-08] MEDS: QUEtiapine FUMARATE 50MG TAB PO SCH (17:19)
[2022-07-08] MEDS: LEVEMIR (INSULIN DETEMIR) 1 UNITS/0.01ML SC SCH (20:16)
[2022-07-09] MEDS: ceFAZolin SOD 2 GM in IV 1 EA IV SCH ×3 (02:00→17:47)
[2022-07-09] MEDS: HEPARIN SOD (PORCINE) 5000UNITS/ML 1ML VIAL/SYRINGE SC SCH ×3 (05:58→20:47)
[2022-07-09] MEDS: INSULIN LISPRO (NovoLOG) PER UNIT SC SCH ×4 (09:23→20:35)
[2022-07-09] MEDS: CYANOCOBALAMIN 500 MCG TAB PO SCH (09:24)
[2022-07-09] MEDS: methocarbamoL 500 MG TAB PO PRN (09:24)
[2022-07-09] MEDS: FLUoxetine 20MG CAP PO SCH (09:24)
[2022-07-09] MEDS: ATORVASTATIN 20 MG TAB PO SCH (09:25)
[2022-07-09] MEDS: FERROUS GLUCONATE 324 MG TAB PO SCH (09:25)
[2022-07-09] MEDS: MAGNESIUM OXIDE 400MG TAB (MAG-OX) PO SCH ×2 (09:25→20:47)
[2022-07-09] MEDS: lisinopriL 40MG TAB PO SCH (09:25)
[2022-07-09] MEDS: PROPRANOLOL 10 MG TAB PO SCH ×2 (09:27→20:49)
[2022-07-09] MEDS: ACETAMINOPHEN TAB 650MG DOSE (2X325MG) PO PRN ×2 (13:52→20:47)
[2022-07-09] MEDS: QUEtiapine FUMARATE 50MG TAB PO SCH (17:47)
[2022-07-09] MEDS: LEVEMIR (INSULIN DETEMIR) 1 UNITS/0.01ML SC SCH (20:46)
[2022-07-10] MEDS: ceFAZolin SOD 2 GM in IV 1 EA IV SCH ×3 (01:23→17:45)
[2022-07-10] MEDS: ACETAMINOPHEN TAB 650MG DOSE (2X325MG) PO PRN ×3 (03:40→20:25)
[2022-07-10] MEDS: HEPARIN SOD (PORCINE) 5000UNITS/ML 1ML VIAL/SYRINGE SC SCH ×3 (05:26→20:25)
[2022-07-10 06:00] VITALS: BP 112/71
[2022-07-10] MEDS: INSULIN LISPRO (NovoLOG) PER UNIT SC SCH ×4 (07:07→20:26)
[2022-07-10] MEDS: PROPRANOLOL 10 MG TAB PO SCH ×2 (09:00→20:24)
[2022-07-10] MEDS: methocarbamoL 500 MG TAB PO PRN ×2 (09:33→20:24)
[2022-07-10] MEDS: CYANOCOBALAMIN 500 MCG TAB PO SCH (09:34)
[2022-07-10] MEDS: FERROUS GLUCONATE 324 MG TAB PO SCH (09:34)
[2022-07-10] MEDS: FLUoxetine 20MG CAP PO SCH (09:34)
[2022-07-10] MEDS: lisinopriL 40MG TAB PO SCH (09:34)
[2022-07-10] MEDS: MAGNESIUM OXIDE 400MG TAB (MAG-OX) PO SCH ×2 (09:35→20:25)
[2022-07-10] MEDS: ATORVASTATIN 20 MG TAB PO SCH (09:35)
[2022-07-10] MEDS: LIDOCAINE 5% (LIDODERM) PATCH TD SCH (13:06)
[2022-07-10] MEDS: QUEtiapine FUMARATE 50MG TAB PO SCH (17:45)
[2022-07-10] MEDS: LEVEMIR (INSULIN DETEMIR) 1 UNITS/0.01ML SC SCH (20:25)
[2022-07-11] MEDS: ceFAZolin SOD 2 GM in IV 1 EA IV SCH ×3 (01:44→18:43)
[2022-07-11] MEDS: ACETAMINOPHEN TAB 650MG DOSE (2X325MG) PO PRN ×2 (02:13→19:59)
[2022-07-11] MEDS: methocarbamoL 500 MG TAB PO PRN ×2 (02:13→19:58)
[2022-07-11] MEDS: HEPARIN SOD (PORCINE) 5000UNITS/ML 1ML VIAL/SYRINGE SC SCH ×3 (05:25→19:59)
[2022-07-11 06:00] VITALS: BP 139/84
[2022-07-11 06:15] LABS: BASO % 0.5 % (0.0-1.0); EOS # 0.1 10^3/uL (0.0-0.5); HEMATOCRIT 28.1 % (42.0-52.0); HEMOGLOBIN 8.5 g/dl (13.5-17.5); LYMPH # 1.2 10^3/uL (1.5-5.0); LYMPH % 20.3 % (24.0-44.0); MEAN CORPUSCULAR HEMOGLOBIN 27.6 pg (27.0-33.0); MEAN CORPUSCULAR HGB CONC 30.2 g/dl (32.0-36.5); MEAN CORPUSCULAR VOLUME 91.2 fl (80.0-96.0); MONO # 0.7 10^3/uL (0.0-0.8); MONO % 11.1 % (2.0-8.0); NEUTROPHILS # 3.9 10^3/uL (1.5-8.5); NEUTROPHILS % 66.6 % (36.0-66.0); PLATELET COUNT, AUTOMATED 429 10^3/uL (150-450); RED BLOOD COUNT 3.08 10^6/uL (4.30-6.10); WHITE BLOOD COUNT 5.9 10^3/uL (4.0-10.0)
[2022-07-11 06:21] LABS: ERYTHROCYTE SEDIMENTATION RATE 62 mm/hr (0-20)
[2022-07-11 06:46] LABS: ALBUMIN 2.7 G/DL (3.2-5.2); ALKALINE PHOSPHATASE 114 U/L (46-116); ALT/SGPT 11 U/L (7.0-40); AST/SGOT 25 U/L (<34); BILIRUBIN,TOTAL 0.4 MG/DL (0.3-1.2); BLOOD UREA NITROGEN 20 MG/DL (9-23); CALCIUM LEVEL 9.2 MG/DL (8.3-10.6); CARBON DIOXIDE LEVEL 30 MMOL/L (20-31); CHLORIDE LEVEL 106 MMOL/L (98-107); CREATININE FOR GFR 1.07 MG/DL (0.70-1.30); GLOMERULAR FILTRATION RATE > 60.0 (>42); GLUCOSE, FASTING 119 MG/DL (74-106); SODIUM LEVEL 143 MMOL/L (136-145); TOTAL PROTEIN 5.8 G/DL (5.7-8.2)
[2022-07-11] MEDS: INSULIN LISPRO (NovoLOG) PER UNIT SC SCH ×4 (08:15→20:00)
[2022-07-11] MEDS: MAGNESIUM OXIDE 400MG TAB (MAG-OX) PO SCH ×2 (08:16→19:58)
[2022-07-11] MEDS: PROPRANOLOL 10 MG TAB PO SCH ×2 (08:16→19:59)
[2022-07-11] MEDS: ATORVASTATIN 20 MG TAB PO SCH (08:16)
[2022-07-11] MEDS: LIDOCAINE 5% (LIDODERM) PATCH TD SCH (08:16)
[2022-07-11] MEDS: CYANOCOBALAMIN 500 MCG TAB PO SCH (08:16)
[2022-07-11] MEDS: lisinopriL 40MG TAB PO SCH (08:16)
[2022-07-11] MEDS: FERROUS GLUCONATE 324 MG TAB PO SCH (08:16)
[2022-07-11] MEDS: FLUoxetine 20MG CAP PO SCH (08:17)
[2022-07-11] MEDS: QUEtiapine FUMARATE 50MG TAB PO SCH (18:43)
[2022-07-11] MEDS: LEVEMIR (INSULIN DETEMIR) 1 UNITS/0.01ML SC SCH (20:00)
[2022-07-12 02:00] VITALS: BP 131/78
[2022-07-12] MEDS: ceFAZolin SOD 2 GM in IV 1 EA IV SCH ×2 (02:23→10:01)
[2022-07-12] MEDS: HEPARIN SOD (PORCINE) 5000UNITS/ML 1ML VIAL/SYRINGE SC SCH (05:34)
[2022-07-12 06:13] LABS: BASO % 0.3 % (0.0-1.0); EOS # 0.1 10^3/uL (0.0-0.5); EOS % 0.7 % (0.0-3.0); HEMATOCRIT 30.5 % (42.0-52.0); HEMOGLOBIN 9.3 g/dl (13.5-17.5); LYMPH # 1.1 10^3/uL (1.5-5.0); LYMPH % 15.4 % (24.0-44.0); MEAN CORPUSCULAR HEMOGLOBIN 27.7 pg (27.0-33.0); MEAN CORPUSCULAR HGB CONC 30.5 g/dl (32.0-36.5); MEAN CORPUSCULAR VOLUME 90.8 fl (80.0-96.0); MONO # 0.5 10^3/uL (0.0-0.8); MONO % 6.6 % (2.0-8.0); NEUTROPHILS # 5.5 10^3/uL (1.5-8.5); NEUTROPHILS % 76.6 % (36.0-66.0); PLATELET COUNT, AUTOMATED 463 10^3/uL (150-450); RED BLOOD COUNT 3.36 10^6/uL (4.30-6.10); WHITE BLOOD COUNT 7.2 10^3/uL (4.0-10.0)
[2022-07-12 06:34] LABS: MAGNESIUM LEVEL 2.1 MG/DL (1.8-2.4)
[2022-07-12 06:35] LABS: BLOOD UREA NITROGEN 20 MG/DL (9-23); CALCIUM LEVEL 9.3 MG/DL (8.3-10.6); CARBON DIOXIDE LEVEL 28 MMOL/L (20-31); CHLORIDE LEVEL 104 MMOL/L (98-107); CREATININE FOR GFR 1.04 MG/DL (0.70-1.30); GLOMERULAR FILTRATION RATE > 60.0 (>42); GLUCOSE, FASTING 91 MG/DL (74-106); POTASSIUM SERUM 4.7 MMOL/L (3.5-5.1); SODIUM LEVEL 140 MMOL/L (136-145)
[2022-07-12] MEDS: INSULIN LISPRO (NovoLOG) PER UNIT SC SCH (07:30)
[2022-07-12] MEDS: MAGNESIUM OXIDE 400MG TAB (MAG-OX) PO SCH (10:01)
[2022-07-12] MEDS: CYANOCOBALAMIN 500 MCG TAB PO SCH (10:01)
[2022-07-12] MEDS: FLUoxetine 20MG CAP PO SCH (10:01)
[2022-07-12 10:02] VITALS: BP 131/78
[2022-07-12] MEDS: ATORVASTATIN 20 MG TAB PO SCH (10:02)
[2022-07-12] MEDS: PROPRANOLOL 10 MG TAB PO SCH (10:02)
[2022-07-12] MEDS: FERROUS GLUCONATE 324 MG TAB PO SCH (10:02)
[2022-07-12] MEDS: lisinopriL 40MG TAB PO SCH (10:02)
[2022-07-12] MEDS: LIDOCAINE 5% (LIDODERM) PATCH TD SCH (10:02)
[2022-07-12] MEDS ORDERED: INSUDET SC (10:50)
[2022-07-12] MEDS ORDERED: INSUHUMDS SC (10:51)
[2022-07-12] MEDS ORDERED: MAGN400T2 PO (10:51)
== END 2022-07-12 12:10 | disposition home health service (06) | DRG 853 ==
LOC: EDBD 07:57 → M ED 07:57 → M ED INP 15:01 → M ICU 16:54 → M MS5PR 07-02 19:00
PROVIDERS: ADMIT Internal Medicine; ATTEND Internal Medicine
PROC: 0M9P3ZX Drainage of Left Knee Bursa and Ligament, Percutaneous Approach, Diagnostic (ICD-10-PCS; 2022-06-29)
PROC: 0MBP0ZZ Excision of Left Knee Bursa and Ligament, Open Approach (ICD-10-PCS; principal; 2022-06-29 17:00)
DX: A41.01 Sepsis due to Methicillin susceptible Staphylococcus aureus (principal); G93.41 Metabolic encephalopathy; N17.9 Acute kidney failure, unspecified; B37.0 Candidal stomatitis; R29.6 Repeated falls; E11.42 Type 2 diabetes mellitus with diabetic polyneuropathy; J44.9 Chronic obstructive pulmonary disease, unspecified; I12.9 Hypertensive chronic kidney disease with stage 1 through stage 4 chronic kidney disease, or unspecified chronic kidney disease; E78.5 Hyperlipidemia, unspecified; N40.1 Benign prostatic hyperplasia with lower urinary tract symptoms; M19.90 Unspecified osteoarthritis, unspecified site; F32.A Depression, unspecified; D64.9 Anemia, unspecified; E83.41 Hypermagnesemia; Z20.822 Contact with and (suspected) exposure to COVID-19; Z79.4 Long term (current) use of insulin; Z79.899 Other long term (current) drug therapy; Z88.8 Allergy status to other drugs, medicaments and biological substances; N18.9 Chronic kidney disease, unspecified; E11.22 Type 2 diabetes mellitus with diabetic chronic kidney disease; M70.42 Prepatellar bursitis, left knee

== ENCOUNTER 2022-07-12 12:57 | Outpatient (CLI) | payer MEDICARE ==
[~2022-07-12] VITALS: Ht 167.6 cm; Wt 79.1 kg
[~2022-07-12 12:57] MED LIST changes: +APAP325T4 PO; +MAGN400T2 PO; +SENN-23 PO
[2022-07-12 13:00] VITALS: BP 140/84
[2022-07-12] MEDS ORDERED: DALBAVANCIN 1,500 MG in D5W 250 ML IV ONE (13:30)
[2022-07-12 14:32] VITALS: BP 140/78
== END 2022-07-12 14:45 | disposition home or self-care (01) ==
LOC: M INFU 12:57
PROVIDERS: ATTEND Internal Medicine
DX: R78.81 Bacteremia (principal); B95.61 Methicillin susceptible Staphylococcus aureus infection as the cause of diseases classified elsewhere; Z88.8 Allergy status to other drugs, medicaments and biological substances
CPT/HCPCS: 96365; J0875

== ENCOUNTER 2022-07-22 12:09 | Emergency (ER) | payer MEDICARE ==
[2022-07-22] MEDS ORDERED: PERCOCET 5MG/325MG TAB PO ONE (13:40)
[2022-07-22] MEDS ORDERED: PERC5TAB12 PO (15:23)
[2022-07-22 15:31] VITALS: BP 119/78
== END 2022-07-22 15:44 | disposition home or self-care (01) ==
LOC: EDBD 12:09 → M ED 12:09 → EDUNIT# 12:09 → M ED 15:44
DX: M25.551 Pain in right hip (principal); M16.12 Unilateral primary osteoarthritis, left hip; R10.9 Unspecified abdominal pain; R26.2 Difficulty in walking, not elsewhere classified; C83.33 Diffuse large B-cell lymphoma, intra-abdominal lymph nodes; G89.29 Other chronic pain; M54.9 Dorsalgia, unspecified; E11.9 Type 2 diabetes mellitus without complications; I12.9 Hypertensive chronic kidney disease with stage 1 through stage 4 chronic kidney disease, or unspecified chronic kidney disease; E78.5 Hyperlipidemia, unspecified; N40.2 Nodular prostate without lower urinary tract symptoms; D64.9 Anemia, unspecified; Z79.4 Long term (current) use of insulin; Z79.899 Other long term (current) drug therapy

== ENCOUNTER 2022-07-26 10:20 | Inpatient (IN) | payer MEDICARE ==
[~2022-07-26] VITALS: Ht 167.6 cm; Wt 79.0 kg
[~2022-07-26 10:20] MED LIST changes: +PERC5TAB12 PO
[2022-07-26 12:23] LABS: BASO % 0.3 % (0.0-1.0); EOS % 0.3 % (0.0-3.0); HEMATOCRIT 33.5 % (42.0-52.0); HEMOGLOBIN 10.7 g/dl (13.5-17.5); LYMPH # 0.8 10^3/uL (1.5-5.0); MEAN CORPUSCULAR HEMOGLOBIN 27.6 pg (27.0-33.0); MEAN CORPUSCULAR HGB CONC 31.9 g/dl (32.0-36.5); MEAN CORPUSCULAR VOLUME 86.6 fl (80.0-96.0); MONO # 0.5 10^3/uL (0.0-0.8); MONO % 4.6 % (2.0-8.0); NEUTROPHILS # 9.7 10^3/uL (1.5-8.5); NEUTROPHILS % 87.3 % (36.0-66.0); PLATELET COUNT, AUTOMATED 334 10^3/uL (150-450); RED BLOOD COUNT 3.87 10^6/uL (4.30-6.10); WHITE BLOOD COUNT 11.1 10^3/uL (4.0-10.0)
[2022-07-26 12:36] LABS: ERYTHROCYTE SEDIMENTATION RATE 77 mm/hr (0-20)
[2022-07-26 13:08] LABS: ALBUMIN 3.2 G/DL (3.2-5.2); ALKALINE PHOSPHATASE 145 U/L (46-116); ALT/SGPT 18 U/L (7.0-40); AST/SGOT 22 U/L (<34); BILIRUBIN,DIRECT 0.3 MG/DL (<0.4); BILIRUBIN,TOTAL 0.8 MG/DL (0.3-1.2); BLOOD UREA NITROGEN 58 MG/DL (9-23); CARBON DIOXIDE LEVEL 26 MMOL/L (20-31); CHLORIDE LEVEL 98 MMOL/L (98-107); CREATININE FOR GFR 1.23 MG/DL (0.70-1.30); GLOMERULAR FILTRATION RATE > 60.0 (>42); GLUCOSE, FASTING 291 MG/DL (74-106); POTASSIUM SERUM 4.1 MMOL/L (3.5-5.1); SODIUM LEVEL 137 MMOL/L (136-145); THYROID STIMULATING HORMONE 0.805 uIU/ML (0.55-4.78)
[2022-07-26] MEDS ORDERED: cefTRIAXone SOD 2 GM in D5W MINI-BAG PLUS 50 ML IV ONE (15:25)
[2022-07-26] MEDS ORDERED: VANCOMYCIN HCL 1,500 MG in NS 250 ML IV ONE (15:25)
[2022-07-26] MEDS ORDERED: SODIUM CHLORIDE 0.9% 1000ML IV STA (16:20)
[2022-07-26] MEDS ORDERED: DEXTROSE 50% 50ML SYRINGE IV PRN (16:40)
[2022-07-26] MEDS ORDERED: GLUCAGON INJ 1MG VIAL SC PRN (16:40)
[2022-07-26] MEDS ORDERED: GLUCOSE 4GM CHEW TABLET PO PRN (16:40)
[2022-07-26] MEDS ORDERED: LEVEMIR (INSULIN DETEMIR) 1 UNITS/0.01ML SC ONE (16:40)
[2022-07-26] MEDS ORDERED: HYDR-3490 PO (16:59)
[2022-07-26] MEDS ORDERED: MAGN400T2 PO (16:59)
[2022-07-26] MEDS ORDERED: LEVE1INJ5 SC (16:59)
[2022-07-26] MEDS ORDERED: HOME MED LIST COMPLETE! XX SCH (17:00)
[2022-07-26] MEDS ORDERED: VANCOMYCIN HCL 750 MG, VIAL MATE ADAPTER 1 EACH in D5W 250 ML IV ONE ×2 (17:00→18:00)
[2022-07-26] MEDS: INSULIN LISPRO (NovoLOG) PER UNIT SC SCH ×2 (17:30→21:35)
[2022-07-26 20:30] LABS: RSV AMPLIFICATION NEGATIVE (NEGATIVE)
[2022-07-26] MEDS ORDERED: OLANZapine INTRAMUSCULAR 10MG VIAL IM ONE (21:05)
[2022-07-26 21:18] VITALS: BP 121/83
[2022-07-26] MEDS: ATORVASTATIN 20 MG TAB PO SCH (21:34)
[2022-07-27 00:15] VITALS: BP 122/68
[2022-07-27] MEDS: VANCOMYCIN HCL 750 MG, VIAL MATE ADAPTER 1 EACH in D5W 250 ML IV SCH ×2 (01:55→14:05)
[2022-07-27] MEDS ORDERED: PERCOCET 5MG/325MG TAB PO PRN (02:25)
[2022-07-27 04:00] VITALS: BP 111/65
[2022-07-27 05:20] LABS: BASO % 0.2 % (0.0-1.0); EOS # 0.1 10^3/uL (0.0-0.5); EOS % 1.3 % (0.0-3.0); HEMATOCRIT 29.1 % (42.0-52.0); HEMOGLOBIN 9.4 g/dl (13.5-17.5); LYMPH # 1.3 10^3/uL (1.5-5.0); LYMPH % 13.4 % (24.0-44.0); MEAN CORPUSCULAR HEMOGLOBIN 27.7 pg (27.0-33.0); MEAN CORPUSCULAR HGB CONC 32.3 g/dl (32.0-36.5); MEAN CORPUSCULAR VOLUME 85.8 fl (80.0-96.0); MONO # 0.7 10^3/uL (0.0-0.8); MONO % 7.3 % (2.0-8.0); NEUTROPHILS # 7.2 10^3/uL (1.5-8.5); NEUTROPHILS % 77.4 % (36.0-66.0); PLATELET COUNT, AUTOMATED 267 10^3/uL (150-450); RED BLOOD COUNT 3.39 10^6/uL (4.30-6.10); WHITE BLOOD COUNT 9.3 10^3/uL (4.0-10.0)
[2022-07-27 05:37] LABS: BLOOD UREA NITROGEN 49 MG/DL (9-23); CALCIUM LEVEL 9.6 MG/DL (8.3-10.6); CARBON DIOXIDE LEVEL 26 MMOL/L (20-31); CHLORIDE LEVEL 101 MMOL/L (98-107); CREATININE FOR GFR 1.02 MG/DL (0.70-1.30); GLOMERULAR FILTRATION RATE > 60.0 (>42); GLUCOSE, FASTING 233 MG/DL (74-106); MAGNESIUM LEVEL 1.7 MG/DL (1.8-2.4); PHOSPHORUS LEVEL 3.4 MG/DL (2.4-5.1); POTASSIUM SERUM 3.4 MMOL/L (3.5-5.1); SODIUM LEVEL 135 MMOL/L (136-145)
[2022-07-27] MEDS ORDERED: ACETAMINOPHEN TAB 650MG DOSE (2X325MG) PO PRN (06:45)
[2022-07-27 08:00] VITALS: BP 127/68
[2022-07-27] MEDS ORDERED: POTASSIUM CHLORIDE 10MEQ SR TABLET PO ONE (08:00)
[2022-07-27] MEDS: MAG SULF 1GM/100ML (MAG RUN) 1 GM in IV 1 EA IV SCH ×2 (08:53→10:12)
[2022-07-27] MEDS: ENOXAPARIN 40MG/0.4ML SYRINGE (J1650 PER 10MG) SC SCH (08:58)
[2022-07-27] MEDS: INSULIN LISPRO (NovoLOG) PER UNIT SC SCH ×4 (08:58→21:16)
[2022-07-27] MEDS: FERROUS GLUCONATE 324 MG TAB PO SCH (08:59)
[2022-07-27] MEDS: FLUoxetine 20MG CAP PO SCH (08:59)
[2022-07-27] MEDS: CYANOCOBALAMIN 500 MCG TAB PO SCH (08:59)
[2022-07-27 11:30] LABS: ERYTHROCYTE SEDIMENTATION RATE 75 mm/hr (0-20)
[2022-07-27] MEDS: cefTRIAXone SOD 1 GM in D5W MINI-BAG PLUS 50 ML IV SCH (11:36)
[2022-07-27 12:00] VITALS: BP 125/68
[2022-07-27 16:00] VITALS: BP 125/82
[2022-07-27 20:00] VITALS: BP 150/81
[2022-07-27] MEDS ORDERED: diphenhydrAMINE 50MG/ML VIAL IV ONE (20:35)
[2022-07-27] MEDS ORDERED: LEVEMIR (INSULIN DETEMIR) 1 UNITS/0.01ML SC SCH (21:00)
[2022-07-27] MEDS: ATORVASTATIN 20 MG TAB PO SCH (21:00)
[2022-07-27] MEDS ORDERED: OLANZapine INTRAMUSCULAR 10MG VIAL IM ONE (22:00)
[2022-07-28] VITALS: BP 119/57
[2022-07-28 04:00] VITALS: BP 148/81
[2022-07-28 04:01] LABS: HEMATOCRIT 32.7 % (42.0-52.0); HEMOGLOBIN 10.4 g/dl (13.5-17.5); MEAN CORPUSCULAR HEMOGLOBIN 27.7 pg (27.0-33.0); MEAN CORPUSCULAR HGB CONC 31.8 g/dl (32.0-36.5); PLATELET COUNT, AUTOMATED 279 10^3/uL (150-450); RED BLOOD COUNT 3.76 10^6/uL (4.30-6.10)
[2022-07-28 04:31] LABS: ERYTHROCYTE SEDIMENTATION RATE 104 mm/hr (0-20)
[2022-07-28 04:33] LABS: BLOOD UREA NITROGEN 36 MG/DL (9-23); CALCIUM LEVEL 9.5 MG/DL (8.3-10.6); CARBON DIOXIDE LEVEL 28 MMOL/L (20-31); CHLORIDE LEVEL 103 MMOL/L (98-107); CREATININE FOR GFR 0.98 MG/DL (0.70-1.30); GLOMERULAR FILTRATION RATE > 60.0 (>42); GLUCOSE, FASTING 212 MG/DL (74-106); MAGNESIUM LEVEL 1.9 MG/DL (1.8-2.4); POTASSIUM SERUM 4.1 MMOL/L (3.5-5.1); SODIUM LEVEL 138 MMOL/L (136-145)
[2022-07-28 08:00] VITALS: BP 142/85
[2022-07-28 08:44] LABS: LIPASE 20 U/L (12-53)
[2022-07-28] MEDS ORDERED: ISOVUE-370 76% 100ML VIAL As Ordered ONE (08:52)
[2022-07-28] MEDS ORDERED: PROPRANOLOL 10 MG TAB PO SCH (09:00)
[2022-07-28] MEDS: cefTRIAXone SOD 1 GM in D5W MINI-BAG PLUS 50 ML IV SCH (09:56)
[2022-07-28] MEDS: FLUoxetine 20MG CAP PO SCH (09:57)
[2022-07-28] MEDS: INSULIN LISPRO (NovoLOG) PER UNIT SC SCH ×2 (09:57→12:00)
[2022-07-28] MEDS: ENOXAPARIN 40MG/0.4ML SYRINGE (J1650 PER 10MG) SC SCH (09:57)
[2022-07-28] MEDS: FERROUS GLUCONATE 324 MG TAB PO SCH (09:58)
[2022-07-28] MEDS: CYANOCOBALAMIN 500 MCG TAB PO SCH (09:58)
[2022-07-28] MEDS ORDERED: VANCOMYCIN HCL 1,000 MG, VIAL MATE ADAPTER 1 EACH in NS 250 ML IV SCH (10:45)
[2022-07-28] MEDS ORDERED: VANCOMYCIN HCL 750 MG, VIAL MATE ADAPTER 1 EACH in D5W 250 ML IV SCH (12:00)
[2022-07-28 12:18] VITALS: BP 118/73
[2022-07-28 12:21] VITALS: BP 118/73
[2022-07-28 16:39] VITALS: BP 146/77
== END 2022-07-28 18:00 | DRG 871 ==
LOC: M ED 10:20 → M ED INP 16:18 → M PCU 21:18
PROVIDERS: ADMIT Internal Medicine; ATTEND Internal Medicine
DX: A41.9 Sepsis, unspecified organism (principal); G06.2 Extradural and subdural abscess, unspecified; M86.9 Osteomyelitis, unspecified; E11.42 Type 2 diabetes mellitus with diabetic polyneuropathy; J44.9 Chronic obstructive pulmonary disease, unspecified; N18.9 Chronic kidney disease, unspecified; I12.9 Hypertensive chronic kidney disease with stage 1 through stage 4 chronic kidney disease, or unspecified chronic kidney disease; E11.22 Type 2 diabetes mellitus with diabetic chronic kidney disease; M46.46 Discitis, unspecified, lumbar region; R29.6 Repeated falls; E78.5 Hyperlipidemia, unspecified; N40.1 Benign prostatic hyperplasia with lower urinary tract symptoms; F32.A Depression, unspecified; D64.9 Anemia, unspecified; M16.11 Unilateral primary osteoarthritis, right hip; Z20.822 Contact with and (suspected) exposure to COVID-19; Z79.4 Long term (current) use of insulin; Z79.899 Other long term (current) drug therapy; Z88.8 Allergy status to other drugs, medicaments and biological substances; E11.69 Type 2 diabetes mellitus with other specified complication